=== PATIENT | male | born 1940 | race Caucasian/White ===

== ENCOUNTER → 2020-05-13 08:54 | Outpatient (BNVA) | payer MEDICARE, SELFPAY | PROVIDERS: PCP Internal Medicine; Referring Provider Internal Medicine; Visit Provider Physician Assistant | DX: K58.9 Irritable bowel syndrome, unspecified (principal); Z79.899 Other long term (current) drug therapy | CPT/HCPCS: 99212 ==

== ENCOUNTER → 2020-06-17 10:23 | Outpatient (BNVA) | payer MEDICARE, SELFPAY | PROVIDERS: PCP Internal Medicine; Referring Provider Internal Medicine; Visit Provider Internal Medicine | DX: G47.33 Obstructive sleep apnea (adult) (pediatric) (principal); K58.9 Irritable bowel syndrome, unspecified; Z99.89 Dependence on other enabling machines and devices | CPT/HCPCS: 99212 ==

== ENCOUNTER 2020-08-20 08:28 | Outpatient (REF) | payer MEDICARE, SELFPAY ==
--- NOTE | 2020-08-20 13:33 | MHC.AU.P13 ---
Adult Audiological Evaluation Date of Visit: 08/20/20 Reason for Appointment: Audiological evaluation to monitor the status of Mr. Ocasio's hearing loss. He notes that he's been having increased difficulty hearing and understanding the television. 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 Ear History: History of Ear Wax Buildup: Both Ears Medical History: Medical History: Unremarkable Medical History Hearing Instrument History- Right Ear: Coal Miner: Phonak Model: Virto B50-13 Serial Number: [id number] Battery Size: 13 Repair Warranty: 09/13/2022 Loss and Damage Warranty: 09/13/2022 Dispensed By: [facility] Date of Fittin08/22/2019 Hearing Instrument History- Left Ear: Coal Miner: Phonak Model: Virto B50-13 Serial Number: [id number] Battery Size: 312 Warranty: 09/13/2022 Loss and Damage Warranty: 09/13/2022 Dispensed By: [facility] Date of Fittin08/22/2019 Otoscopy: Right Ear: Unremarkable Left Ear: Unremarkable Tympanometry: Tympanometry performed due to: History of middle ear dysfunction Right Ear: Hypercompliant Middle Ear System (Type Ad) Left Ear: Hypercompliant Middle Ear System (Type Ad) Hearing Evaluation: Transducer(s) Used: Insert Earphones, Bone Conduction Method: Conventional Audiometry Stimuli Used: Pure Tones Right Ear: Description of Hearing: Mild sloping to profound sensorineural hearing loss from 250-8000 Hz. Left Ear: Description of Hearing: Normal hearing at 250 Hz, sloping to a mild to profound sensorineural hearing loss from 500-8000 Hz. Speech Recognition Threshold (SRT): Method Used: Monitored Live Voice Stimuli Used: Spondee Words Right Ear: 35 dBHL Left Ear: 35 dBHL Word Discrimination: Method: Recorded Lists Word Lists Used: NU-6 Right Ear: 56% at 75 dBHL, 72% at 85 dBHL Left Ear: 68% at 85 dBHL Comparison: Compared to the most recent evaluation: Hearing is stable. Recommendations: Audiological re-evaluation in one year. Hearing aid maintenance performed today. Hearing aid(s) reprogrammed with updated test results. Diagnosis: Primary Diagnosis: H90.3 Bilateral Sensorineural Hearing Loss Services Performed: Comprehensive Audiological Evaluation (CPT 36673) Tympanometry (CPT 56616) Signature: Provider: Mundo Vides, CCC-A
== END 2020-08-20 08:29 | disposition home or self-care (01) ==
LOC: HO.SH 08:28
PROVIDERS: Visit Provider Internal Medicine
DX: H90.3 Sensorineural hearing loss, bilateral (principal)
CPT/HCPCS: 92557; 92567

== ENCOUNTER 2020-09-02 09:55 | Outpatient (REF) | payer MEDICARE, SELFPAY ==
[2020-09-02 11:29] LABS: Cholesterol 154 mg/dL; HDL Cholesterol 60 mg/dL; LDL Cholesterol Calculated 84 mg/dl; Triglycerides 52 mg/dL
== END 2020-09-02 09:56 | disposition home or self-care (01) ==
LOC: HO.LAB 09:55
PROVIDERS: PCP Internal Medicine; Visit Provider Internal Medicine
DX: E11.9 Type 2 diabetes mellitus without complications (principal)
CPT/HCPCS: 36415; 80061

== ENCOUNTER → 2020-12-16 10:25 | Outpatient (BNVA) | payer MEDICARE, SELFPAY | PROVIDERS: PCP Internal Medicine; Visit Provider Internal Medicine | DX: G47.33 Obstructive sleep apnea (adult) (pediatric) (principal); K58.9 Irritable bowel syndrome, unspecified; Z99.89 Dependence on other enabling machines and devices | CPT/HCPCS: 99212 ==

== ENCOUNTER 2021-01-15 11:20 | Outpatient (REF) | payer SELFPAY | END 2021-01-15 11:21 | disposition home or self-care (01) | LOC: HO.HAP 11:20 | PROVIDERS: Visit Provider Internal Medicine | DX: Z13.89 Encounter for screening for other disorder (principal) ==

== ENCOUNTER 2021-01-24 11:00 | Outpatient (REF) | payer SELFPAY | END 2021-01-24 11:01 | disposition home or self-care (01) | LOC: HO.HAP 11:00 | PROVIDERS: Visit Provider Internal Medicine | DX: H90.3 Sensorineural hearing loss, bilateral (principal) | CPT/HCPCS: V5266 ==

== ENCOUNTER 2021-02-20 15:31 | Outpatient (REF) | payer SELFPAY | END 2021-02-20 15:32 | disposition home or self-care (01) | LOC: HO.HAP 15:31 | PROVIDERS: Visit Provider Internal Medicine | DX: Z13.89 Encounter for screening for other disorder (principal) ==

== ENCOUNTER 2021-02-21 07:36 | Outpatient (REF) | payer MEDICARE, SELFPAY ==
[2021-02-21 09:04] LABS: Alanine Aminotransferase 16 U/L (0-40); Albumin Level 4.4 g/dL (3.5-5.0); Alkaline Phosphatase 52 U/L (39-117); Anion Gap 13 (12-20); Aspartate Amino Transferase 22 U/L (5-37); Bilirubin Total 0.8 mg/dL (0.0-1.0); Blood Urea Nitrogen 19 mg/dL (9-16); Calcium 9.4 mg/dL (8.4-10.2); Carbon Dioxide 26 mmol/L (22-29); Chloride 106 mmol/L (96-108); Estimated Glomerular Filt Rate > 60; Glucose Fasting 90 mg/dL (60-99); Potassium 4.3 mmol/L (3.3-5.1); Sodium 141 mmol/L (135-145)
== END 2021-02-21 07:37 | disposition home or self-care (01) ==
LOC: HO.LAB 07:36
PROVIDERS: PCP Internal Medicine; Referring Provider Internal Medicine; Visit Provider Nurse Practitioner Family
DX: Z13.1 Encounter for screening for diabetes mellitus (principal)
CPT/HCPCS: 36415; 80053

== ENCOUNTER 2021-03-11 10:57 | Outpatient (REF) | payer SELFPAY | END 2021-03-11 10:58 | disposition home or self-care (01) | LOC: HO.HAP 10:57 | PROVIDERS: Visit Provider Internal Medicine | DX: Z46.1 Encounter for fitting and adjustment of hearing aid (principal); H90.3 Sensorineural hearing loss, bilateral | CPT/HCPCS: V5299 ==

== ENCOUNTER 2021-03-23 11:50 | Emergency (ER) | payer MEDICARE, SELFPAY ==
[2021-03-23 11:59] VITALS: BP 149/74; PULSE 88; RESP 17; TEMP 36.7; O2SAT 99; BMI 22.1
--- NOTE | 2021-03-23 12:37 | ED.GENADULT ---
HPI - General Adult General Chief complaint: General Medical Stated complaint: toe nail injury Time Seen by Provider: 03/23/21 12:37 Source: patient Mode of arrival: ambulatory Limitations: no limitations History of Present Illness HPI narrative: 80 y/o male presents for evaluation of a left great toe nail injury. He reports 6 months of topical treatment for fungus to the nails. He is seen by Podiatry. Last night when cleaning his feet the nail got caught on the fabic and he tore it away from the nailbed partially. He had bleeding at the time that was able to be controlled with direct pressure and bandage. No pain this morning. Ambulating normally. encouraged him to come to the ER for evaluation. MD complaint: left great toe nail injury Onset (ago): day(s) (1) Location: left and lower extremity Radiation: non-radiation Severity: mild Severity scale (1-10): 1 Pain Consistency: now resolved Relieving factors: none Exacerbating factors: none Associated symptoms: denies other symptoms Treatments prior to arrival: none Related Data Previous Rx's Medication Instructions Recorded simvastatin 20 mg tablet 20 mg PO DAILY #90 tab 07/15/20 cephalexin 500 mg capsule 500 mg PO BID #6 cap 03/23/21 Allergies Allergy/AdvReac Type Severity Reaction Status Date / Time No Known Allergies Allergy Verified 03/23/21 11:59 [No Known Allergies*] Review of Systems Constitutional: Constitutional: Denies chills and Denies fever(s) Eyes: Eyes: Reports no additional eye complaints ENT: Reports Normal hearing present Gastrointestinal: Gastrointestinal: Denies nausea and Denies vomiting Musculoskeletal: Musculoskeletal: Denies abnormal gait, Denies arthralgias, Denies limited range of motion, Denies numbness and Denies tingling Integumentary/Breasts: Skin/Breast: Denies unusual bruising Neurologic: Reports Normal hearing present, Denies abnormal gait, Denies numbness and Denies tingling Hematologic/Lymphatic: Hematologic/Lymphatic: Denies easy bleeding and Denies easy bruising PMFSH Past Medical History Attestation statement: The following information was validated with the patient. Medical History Dyslipidemia Hyperlipidemia IBS (irritable bowel syndrome) RIZWAN on CPAP Screening for diabetes mellitus Surgical History (Updated 02/18/21 @ 09:49 by EARLE Irene) History of colonoscopy Family History Family History Father Mental health disorder Mother No problems noted. Social History Social History (Updated 02/18/21 @ 09:21 by EARLE Irene) Alcohol intake: current Patient Tobacco Use Status: Former Tobacco user Advance Directives: No Advance Directives Information Provided: No Physical Exam Vital Signs: Vital Signs: Last Vital Signs Temp 98.0 F 03/23/21 11:59 Pulse 88 03/23/21 11:59 Resp 17 03/23/21 11:59 BP 149/74 H 03/23/21 11:59 Pulse Ox 99 03/23/21 11:59 Body Mass Index 22.1 Appearance: Alert. Oriented X3. No acute distress. HEENT: normal inspection CVS: Normal heart rate and rhythm. Pulses normal. Respiratory: No respiratory distress. Skin: Skin warm and dry. Normal skin color. Normal skin turgor. No rashes. Extremities: left great toe with thickened yellow toenail. nail is able to be from the nail bed about 1/3 of the length of the nail. no active bleeding. dried blood present and cleaned off. no joint pain, erythema or warmth. great toe nail is split almost all the way to the cuticle. Neuro: Oriented X 3. Nonfocal Steady gait Neuro: Cranial nerves: Yes Normal hearing present Course Course Course Narrative: 80 y/o male presenting with partial avulsion of left great toenail. No bleeding or active bacterial infection. Toe nail is still brittle and appears to be fungal. He has an appointment with podiatry in 1 week. Will start PPX keflex given new trauma. Bacitracin and sterile dressing applied. Stable for d/c home with outpatient follow up. Discharge Plan Discharge Clinical Impression: Toenail fungus, Injury of nail bed of toe Patient Disposition: Home, Self-Care Instructions: Nail Avulsion (ED) Additional Instructions: Take the prescribed antibiotic as directed to help prevent infection Follow up with your Merchandising Team Lead next week Prescriptions: New cephalexin 500 mg capsule 500 mg PO BID Qty: 6 RF: 0 No Action simvastatin 20 mg tablet 20 mg PO DAILY Qty: 90 RF: 8 Interventions: ED Discharge Assessment Last Done: 03/23/21 12:41 Discharge Date/Time: 03/23/21 12:43
== END 2021-03-23 12:43 | disposition home or self-care (01) ==
PROVIDERS: Emergency Provider Emergency Medicine; PCP Internal Medicine
DX: B35.1 Tinea unguium (principal); M79.672 Pain in left foot; Z79.899 Other long term (current) drug therapy
CPT/HCPCS: 99283

== ENCOUNTER 2021-05-26 12:28 | Outpatient (REF) | payer SELFPAY | END 2021-05-26 12:29 | disposition home or self-care (01) | LOC: HO.HAP 12:28 | PROVIDERS: Visit Provider Internal Medicine | DX: Z13.89 Encounter for screening for other disorder (principal) ==

== ENCOUNTER 2021-06-04 13:31 | Outpatient (REF) | payer SELFPAY | END 2021-06-04 13:32 | disposition home or self-care (01) | LOC: HO.HAP 13:31 | PROVIDERS: Visit Provider Internal Medicine | DX: Z13.89 Encounter for screening for other disorder (principal) ==

== ENCOUNTER → 2021-06-17 10:24 | Outpatient (BNVA) | payer MEDICARE, SELFPAY | PROVIDERS: PCP Internal Medicine; Visit Provider Internal Medicine | DX: G47.33 Obstructive sleep apnea (adult) (pediatric) (principal); Z99.89 Dependence on other enabling machines and devices | CPT/HCPCS: 99212 ==

== ENCOUNTER 2021-09-03 07:41 | Outpatient (REF) | payer MEDICARE, SELFPAY ==
[2021-09-03 08:04] LABS: MANUAL DIFF FLAG NO
[2021-09-03 08:32] LABS: Basophils Percent Auto 0.8 % (0-2); Eosinophils Absolute Auto 0.2 X10*3/uL (0.0-0.4); Eosinophils Percent Auto 5.5 % (0-4); Hematocrit 42.2 % (42.0-52.0); Hemoglobin 14.2 g/dl (14.0-18.0); Imm Gran Abs Auto 0.01 X10*3/uL (0.00-0.03); Imm Gran Pct Auto 0.3 % (0.0-0.4); Lymphocytes Absolute Auto 1.5 X10*3/uL (1.2-4.9); Lymphocytes Percent Auto 39.6 % (20-40); Mean Corpuscular HGB Conc 33.6 g/dl (31.0-36.0); Mean Corpuscular Hemoglobin 33.3 pg (27.0-33.0); Mean Corpuscular Volume 98.8 fL (80.0-98.0); Mean Platelet Volume 8.9 fL (9.4-12.4); Monocytes Absolute Auto 0.4 X10*3/uL (0.1-1.2); Neutrophils Absolute Auto 1.7 x10*3/uL (2.0-8.3); Neutrophils Percent Auto 43.8 % (45-73); Platelet Count 163 X10*3/uL (160-400); Red Blood Count 4.27 X10*6/uL (4.60-5.80); Red Cell Distribution Width 12.7 % (11.0-16.0); White Blood Count 3.8 X10*3/uL (4.8-10.8)
[2021-09-03 09:06] LABS: Alanine Aminotransferase 15 U/L (0-40); Albumin Level 4.3 g/dL (3.5-5.0); Alkaline Phosphatase 47 U/L (39-117); Anion Gap 13 (12-20); Aspartate Amino Transferase 22 U/L (5-37); Bilirubin Total 0.6 mg/dL (0.0-1.0); Blood Urea Nitrogen 21 mg/dL (9-16); Calcium 9.8 mg/dL (8.4-10.2); Carbon Dioxide 27 mmol/L (22-29); Chloride 105 mmol/L (96-108); Cholesterol 165 mg/dL; Estimated Glomerular Filt Rate > 60; Glucose Fasting 93 mg/dL (60-99); HDL Cholesterol 54 mg/dL; LDL Cholesterol Calculated 101 mg/dl; Potassium 4.3 mmol/L (3.3-5.1); Sodium 141 mmol/L (135-145); Total Protein 7.1 g/dL (6.5-8.0); Triglycerides 54 mg/dL
[2021-09-03 09:37] LABS: Prostate Specific Antigen Scr 9.85 ng/mL (<0.05-4.0); Thyroid Stimulating Hormone 2.36 uIU/mL (0.32-4.0)
== END 2021-09-03 07:42 | disposition home or self-care (01) ==
LOC: HO.LAB 07:41
PROVIDERS: PCP Internal Medicine; Visit Provider Internal Medicine
DX: Z00.00 Encounter for general adult medical examination without abnormal findings (principal); Z13.0 Encounter for screening for diseases of the blood and blood-forming organs and certain disorders involving the immune mechanism; Z12.5 Encounter for screening for malignant neoplasm of prostate
CPT/HCPCS: 36415; 80053; 80061; 84153; 84443; 85025

== ENCOUNTER 2021-09-08 08:34 | Outpatient (REF) | payer MEDICARE, SELFPAY ==
--- NOTE | 2021-09-08 10:25 | MHC.AU.AHA ---
Adult Audiological Evaluation Date of Visit: 09/08/21 Reason for Appointment: Audiological evaluation to monitor the status of Mr. Ocasio's hearing loss. Mr. Ocasio has a longstanding history of bilateral sensorineural hearing loss and uses hearing aids binaurally. He denies any significant changes to his hearing, but notes that he thinks he has a cerumen build-up. He denies any changes to his medical history. 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 Ear History: History of Ear Wax Buildup: Both Ears Medical History: Medical History: Unremarkable Medical History Allergies: NKA Medication List: Simvastatin Hearing Instrument History- Right Ear: Military Administrative Technician: Leevia Model: [id number] Media B50-13 Serial Number: [id number] Battery Size: 13 Repair Warranty: 09/13/2022 Loss and Damage Warranty: 09/13/2022 - USED 02/24/2021 Dispensed By: [facility] Date of Fittin08/22/2019 Hearing Instrument History- Left Ear: Military Administrative Technician: Phonak Model: GetPriceo B50-13 Serial Number: [id number] Battery Size: 312 Warranty: 09/13/2022 Loss and Damage Warranty: 09/13/2022 Dispensed By: [facility] Date of Fittin08/22/2019 Otoscopy: Right Ear: Partially occluded with cerumen Left Ear: Partially occluded with cerumen Tympanometry: Tympanometry performed due to: To assess integrity of the middle ear system Right Ear: Could Not Obtain Seal Left Ear: Hypercompliant Middle Ear System (Type Ad) Hearing Evaluation: Transducer(s) Used: Circumaural Headphones, Bone Conduction Method: Conventional Audiometry Stimuli Used: Pure Tones Right Ear: Description of Hearing: Normal hearing from 250-500 Hz, sloping to a mild to profound sensorineural hearing loss from 750-8000 Hz. Left Ear: Description of Hearing: Normal hearing from 250-500 Hz, sloping to a mild to profound sensorineural hearing loss from 750-8000 Hz. Speech Recognition Threshold (SRT): Method Used: Monitored Live Voice Stimuli Used: Spondee Words Right Ear: 30 dBHL Left Ear: 30 dBHL Word Discrimination: Method: Recorded Lists Word Lists Used: NU-6 Right Ear: 36% at 90 dBHL Left Ear: 44% at 90 dBHL Most Comfortable Level (MCL): Right Ear: 85 dBHL Left Ear: 85 dBHL Comparison: Compared to the most recent evaluation: Hearing is stable. Monaural word discrimination scores decreased significantly from scores of 72% at 85 dBHL in the right ear and 68% at 85 dBHL in the left ear in 202. Recommendations: Audiological re-evaluation in one year. Follow-up with physician for cerumen removal. Hearing aid maintenance performed today. Diagnosis: Primary Diagnosis: H90.3 Bilateral Sensorineural Hearing Loss Secondary Diagnosis: H61.23 Impacted Cerumen, Bilateral Services Performed: Comprehensive Audiological Evaluation (CPT 98979) Tympanometry (CPT 84477) Signature: Provider: Mundo Vides, CCC-A
== END 2021-09-08 08:35 | disposition home or self-care (01) ==
LOC: HO.SH 08:34
PROVIDERS: Visit Provider Internal Medicine
DX: H90.3 Sensorineural hearing loss, bilateral (principal); H61.23 Impacted cerumen, bilateral
CPT/HCPCS: 92557; 92567

== ENCOUNTER → 2021-12-16 10:10 | Outpatient (BNVA) | payer MEDICARE, SELFPAY | PROVIDERS: PCP Internal Medicine; Visit Provider Internal Medicine | DX: G47.33 Obstructive sleep apnea (adult) (pediatric) (principal); Z99.89 Dependence on other enabling machines and devices | CPT/HCPCS: 99212 ==

== ENCOUNTER 2022-02-18 11:09 | Outpatient (REF) | payer SELFPAY | END 2022-02-18 11:10 | disposition home or self-care (01) | LOC: HO.HAP 11:09 | PROVIDERS: Visit Provider Internal Medicine | DX: Z46.1 Encounter for fitting and adjustment of hearing aid (principal); H90.3 Sensorineural hearing loss, bilateral | CPT/HCPCS: V5266 ==

== ENCOUNTER 2022-03-30 11:48 | Outpatient (REF) | payer SELFPAY ==
--- NOTE | 2022-04-01 09:56 | MHC.AU.HFU ---
Hearing Instrument Follow-Up- Binaural Date of Visit: 03/30/22 Right Ear: Wire Spooler: Phonak Model: Virto B50-13 Serial Number: [id number] Repair Warranty: 09/13/2022 Loss and Damage Warranty: 09/13/2022 - USED 02/24/2021 Battery Size: 13 Left Ear: Wire Spooler: Phonak Model: Virto B50-13 Serial Number: [id number] Repair Warranty: 09/13/2022 Loss and Damage Warranty: 09/13/2022 Battery Size: 13 Follow-Up Summary: Patient dropped his hearing aids off, stating the battery life is very short. I had previously discussed this on the phone with the patient, suggesting he first made sure there was no adhesive residue on the batteries, which we have noticed has been happening with many people. He also put his batteries in the envelope so we could check if they are okay. Hearing aids inspected. No visible damage. Two batteries were activated, and do not have any adhesive residue. The hearing aids were sent to [facility] for repair under warranty. Recommendations: Patient will be contacted when materials have arrived. The packet containing the patient's batteries will be held in the repair drawer. Diagnosis Code(s): Primary Diagnosis: H90.3 Bilateral Sensorineural Hearing Loss Signature: Provider: Mundo Bush, RAZIA-A
== END 2022-03-30 11:49 | disposition home or self-care (01) ==
LOC: HO.HAP 11:48
PROVIDERS: Visit Provider Internal Medicine
DX: Z13.89 Encounter for screening for other disorder (principal)

== ENCOUNTER 2022-04-09 16:33 | Outpatient (REF) | payer MEDICARE, SELFPAY | END 2022-04-09 16:34 | disposition home or self-care (01) | LOC: HO.HAP 16:33 | PROVIDERS: Visit Provider Internal Medicine | DX: Z13.89 Encounter for screening for other disorder (principal) ==

== ENCOUNTER → 2022-06-11 09:07 | Outpatient (BNVA) | payer MEDICARE, SELFPAY | PROVIDERS: PCP Internal Medicine; Visit Provider Urology | DX: R97.20 Elevated prostate specific antigen [PSA] (principal) | CPT/HCPCS: 99202 ==

== ENCOUNTER 2022-06-23 13:05 | Outpatient (REF) | payer SELFPAY | END 2022-06-23 13:06 | disposition home or self-care (01) | LOC: HO.HAP 13:05 | PROVIDERS: Visit Provider Internal Medicine | DX: Z46.1 Encounter for fitting and adjustment of hearing aid (principal); H90.3 Sensorineural hearing loss, bilateral | CPT/HCPCS: V5266 ==

== ENCOUNTER 2022-09-21 12:50 | Outpatient (REF) | payer MEDICARE, SELFPAY ==
--- NOTE | 2022-09-22 09:27 | MHC.AU.HA3 ---
Hearing Instrument Follow-Up- Binaural Date of Visit: 09/21/22 Right Ear: Louis, Model, Color, Serial Number: Loree Salmon [id number] SN: [id number] Color: [place] Lip Reading Teacher Repair Warranty: 09/13/2022 Lip Reading Teacher Loss and Damage Warranty: 09/13/2022 - USED 02/24/2021 [facility] Service Plan: 09/13/2022 Battery Size: 13 Type of Wax Guard: Cerustop Dispensed By: [facility] Date of Fittin08/22/2019 Left Ear: Louis, Model, Color, Serial Number: Loree Salmon B50-13 SN: [id number] Color: [place] Lip Reading Teacher Repair Warranty: 09/13/2022 Lip Reading Teacher Loss and Damage Warranty: 09/13/2022 [facility] Service Plan: 09/13/2022 Battery Size: 13 Type of Wax Guard: Cerustop Dispensed By: [facility] Date of Fittin08/22/2019 Follow-Up Summary: Olvin reported that he wanted to send the hearing aids out for a reproduction specialist repair/clean and check before the warranty expires. Warranty 09/13/2022. Called [facility] to inquire about a courtesy repair - surgical sales representative, Sheyla, reported warranty does not until 11/12/2022 for both hearing aids. Olvin reported that he does not need loaners as he will use his old hearing aid in the meantime. Sent both hearing aids to [facility]. Recommendations: Patient will be contacted when materials have arrived. Recommendations (Other): Once hearing aids return and are reprogrammed, Olvin can fruit picker the devices without an appointment. Diagnosis Code(s): Primary Diagnosis: H90.3 Bilateral Sensorineural Hearing Loss Signature: Provider: Ty Irwin, [facility]
== END 2022-09-21 12:51 | disposition home or self-care (01) ==
LOC: HO.HAP 12:50
PROVIDERS: Visit Provider Internal Medicine
DX: Z13.89 Encounter for screening for other disorder (principal)

== ENCOUNTER 2022-09-28 11:00 | Outpatient (REF) | payer MEDICARE, SELFPAY ==
[2022-09-28 13:00] LABS: Cholesterol 176 mg/dL; HDL Cholesterol 53 mg/dL; LDL Cholesterol Calculated 112 mg/dl; Triglycerides 59 mg/dL
[2022-09-28 13:28] LABS: PSA,Total (Free>4and<10) 4.99 ng/mL (0.00-4.00)
[2022-10-01 11:54] LABS: Free Prostate Spec Ag 0.6 ng/mL; Percent Free Prostate Spec Ag 12 % (calc) (>25)
== END 2022-09-28 11:01 | disposition home or self-care (01) ==
LOC: HO.LAB 11:00
PROVIDERS: PCP Internal Medicine; Visit Provider Urology
DX: Z12.5 Encounter for screening for malignant neoplasm of prostate (principal); R97.20 Elevated prostate specific antigen [PSA]; E78.5 Hyperlipidemia, unspecified
CPT/HCPCS: 36415; 80061; 84153; 84154

== ENCOUNTER 2022-09-30 06:52 | Outpatient (REF) | payer MEDICARE, SELFPAY ==
[2022-09-30 08:18] LABS: Cholesterol 177 mg/dL; HDL Cholesterol 55 mg/dL; LDL Cholesterol Calculated 111 mg/dl; Triglycerides 58 mg/dL
[2022-09-30 08:36] LABS: Prostate Specific Antigen Scr 5.05 ng/mL (<0.05-4.0)
== END 2022-09-30 06:53 | disposition home or self-care (01) ==
LOC: HO.LAB 06:52
PROVIDERS: PCP Internal Medicine; Visit Provider Internal Medicine
DX: Z00.00 Encounter for general adult medical examination without abnormal findings (principal); Z12.5 Encounter for screening for malignant neoplasm of prostate; E78.5 Hyperlipidemia, unspecified
CPT/HCPCS: 36415; 80061; 84153

== ENCOUNTER 2022-10-02 13:59 | Outpatient (REF) | payer SELFPAY | END 2022-10-02 14:00 | disposition home or self-care (01) | LOC: HO.HAP 13:59 | PROVIDERS: Visit Provider Internal Medicine | DX: Z13.89 Encounter for screening for other disorder (principal) ==

== ENCOUNTER → 2022-10-06 09:14 | Outpatient (BNVA) | payer MEDICARE, SELFPAY | PROVIDERS: PCP Internal Medicine; Visit Provider Urology | DX: R97.20 Elevated prostate specific antigen [PSA] (principal); R35.1 Nocturia; R39.12 Poor urinary stream | CPT/HCPCS: 99212 ==

== ENCOUNTER 2022-11-23 11:13 | Outpatient (REF) | payer MEDICARE, SELFPAY | END 2022-11-23 11:14 | disposition home or self-care (01) | LOC: HO.SH 11:13 | PROVIDERS: Visit Provider Internal Medicine | DX: H90.3 Sensorineural hearing loss, bilateral (principal) | CPT/HCPCS: 92552; 92556 ==

== ENCOUNTER 2023-02-18 09:21 | Outpatient (AMB) | payer MEDICARE, SELFPAY ==
[2023-02-18 09:29] VITALS: BP 118/78; PULSE 80; O2SAT 98; BMI 22.1
--- NOTE | 2023-02-18 09:29 | MHC.PC.OV ---
Vital Signs 02/18/23 09:29 Height 6 ft Weight 163 lb 4 oz BMI 22.1 BP 118/78 Blood Pressure Location Lt brachial Position Sitting Pulse 80 Pulse Source Pulse Oximeter Pulse Oximetry (%) 98 Oxygen Delivery Method Room Air Intake Visit Reasons: 6mth f/u Slitting Machine Operator Helper Required: No Accompanied by: Self / Same As Patient Allergies No Known Allergies [No Known Allergies*] Allergy (Verified 02/18/23 09:30) Medication List - Last Reconciled 02/18/23 by Clifford Ortega MD finasteride 5 mg PO DAILY 90 days metronidazole 0.75% appl topical BID PRN simvastatin 20 mg PO DAILY Tobacco use date assessed: 02/18/23 Fall risk assessment: No Falls in past year Last assessed Fall Risk: 02/18/23 Dental Screening Dental Screen Date: 02/18/23 Did you have a dental visit in the last 12 months?: Yes Did you have a dental problem in the last 6 months where you did not have access to dental care?: No Was dental information given to patient?: Patient has dentist HPI 6mth f/u HPI Details hyperlipidemia on rx; [facility] Medical History (Updated 10/06/22 @ 10:02 by Domo Perkins MD) Dyslipidemia History of urinary frequency Hyperlipidemia IBS (irritable bowel syndrome) RIZWAN on CPAP Screening for diabetes mellitus Surgical History History of colonoscopy Family History Father Mental health disorder Mother No problems noted. Social History Housing: House Alcohol intake: current Patient Tobacco Use Status: Former Tobacco user Tobacco use type: Cigarette Years Smoked: 2 years. Over 60 years ago. e-Cigarette/Vaping Use: Never Used Second Hand Smoke Exposure: No service: No Current occupational status: retired Cognitive needs: No Hearing needs: No Vision needs: No Questionnaire PHQ-9 Over the last 2 weeks, how often have you been bothered by any of the following problems? 1. Little interest or pleasure in doing things: not at all 2. Feeling down, depressed, or hopeless: not at all 3. Trouble falling or staying asleep, or sleeping too much: not at all 4. Feeling tired or having little energy: not at all 5. Poor appetite or overeating: not at all 6. Feeling bad about yourself - or that you are a failure or have let yourself or your family down: not at all 7. Trouble concentrating on things, such as reading the newspaper or watching television: not at all 8. Moving or speaking so slowly that other people could have noticed. Or the opposite - being so fidgety or restless that you have been moving around a lot more than usual: not at all 9. Thoughts that you would be better off or of hurting yourself in some way: not at all Total score: 0 Depression Screening Interpretation: Negative 63464 - PHQ-9 Billing: Yes Source: Developed by Drs. Geronimo Garcia, Cortney Mathis, Santana Jaime and colleagues, with an educational germain from [employer]. Thrive Questionnaire Date Thrive assessed: 02/18/23 I am a: Patient What is your living situation today?: I have a steady place to live Within the past 12 months, did the food you bought not last and you didn't have the money to get more?: Never true Within the past 12 months, did you worry whether your food would run out before you got money to buy more?: Never true Do you have trouble paying for medicines?: No Do you have trouble getting transportation to medical appointments?: No Do you have trouble paying your heating and electricity bill?: No Do you have trouble taking care of your child, family member or friend?: No Do you have trouble with day-to-day activities such as bathing, preparing meals, shopping, managing finances, etc.?: No Are you currently unemployed and looking for a job?: No Are you interested in more education?: No Please select the resources that you would like help with: None Currently or been in a relationship where the following occur: no concerns reported AUDIT C Alcohol Use Questionnaire (AUDIT-C) Score Reviewed/Action Taken: Yes GUERRERO-7 AMB Questionnaire GUERRERO-7 Date GUERRERO - 7 assessed: 02/18/23 Feeling nervous, anxious, or on edge: 0 = Not at all Not being able to stop or control worryin = Not at all Worrying too much about different things: 0 = Not at all Trouble relaxin = Not at all Being so restless that it is hard to sit still: 0 = Not at all Becoming easily annoyed or irritable: 0 = Not at all Feeling afraid as if something awful might happen: 0 = Not at all Total GUERRERO-7 score (0-4 normal; 5-9 mild; 10-14 moderate; 15-21 severe): 0 Source: Developed by Drs. Geronimo Garcia, Cortney Mathis, Santana Jaime and colleagues, with an educational germain from [employer]. GUERRERO-7 Assessment Billing GUERRERO-7 Assessment Tool: GUERRERO-7 Assessment 74395 Review of Systems Const Denies chills, Denies headache(s) and Denies weight loss ENT Denies headache(s) Card Denies chest pain, Denies syncope, Denies irregular heart rhythm and Denies dyspnea Resp Denies chest congestion, Denies cough and Denies dyspnea GI Denies abdominal pain, Denies change in stool character, Denies nausea and Denies vomiting Musc Denies deformity and Denies joint swelling Neuro Denies syncope and Denies headache(s) Physical exam (Primary Care) Vital Signs: Last Vital Signs Pulse 80 02/18/23 09:29 BP 118/78 02/18/23 09:29 Pulse Ox 98 02/18/23 09:29 Oxygen Delivery Method Room Air 02/18/23 09:29 BMI result Body Mass Index 22.1 Tobacco/Smoking Status: Tobacco use Status Tobacco use date assessed 02/18/23 02/18/23 09:33 Patient Tobacco Use Status Former Tobacco user 02/18/23 09:33 Tobacco use type Cigarette 02/18/23 09:33 e-Cigarette/Vaping Use Never Used 02/18/23 09:33 PHQ-9: PHQ-9 Score PHQ-9: Total score 0 02/18/23 09:33 Depression Screening Interpretation: Negative Thrive Assessment: Date of Thrive Assessment Date Thrive assessed 02/18/23 02/18/23 09:33 Currently or been in a relationship where the following occur: no concerns reported Const General: cooperative, comfortable and no acute distress Resp Effort & Inspection: normal respiratory effort Auscultation: clear to auscultation bilaterally Percussion: percussion normal Cardio Jugular venous distension: no JVD Rate: regular rate Rhythm: regular rhythm GI Inspection: Yes normal to inspection Assessment and Plan Assessment & Plan (1) Dyslipidemia: Code(s): E78.5 - Hyperlipidemia, unspecified Plan: stable; same rx Orders: Referrals General Surgery Referral K40.90 - Unilateral inguinal hernia, without obstruction or gangrene, not specified as recurrent Coding Level of Care Code Est Pt Level 3 (55700) Diagnoses Dyslipidemia E78.5 Additional Codes GUERRERO-7 Assessment Billing - GUERRERO-7 Assessment Tool: GUERRERO-7 Assessment 55638 ([id number])
== END 2023-02-18 09:55 | disposition home or self-care (01) ==
PROVIDERS: Visit Provider Internal Medicine
DX: E78.5 Hyperlipidemia, unspecified (principal)
CPT/HCPCS: 99213

== ENCOUNTER 2023-03-02 09:32 | Outpatient (AMB) | payer MEDICARE, SELFPAY ==
--- NOTE | 2023-03-02 09:38 | MHC.OFFVIS ---
Intake Vital Signs 03/02/23 09:39 Height 6 ft Weight 165 lb BMI 22.4 BP 161/79 H Blood Pressure Location Lt brachial Position Sitting Pulse 61 Intake Visit Reasons: unilateral inguinal hernia Intake Note: This patient presents for an assessment for a possible left inguinal hernia. Patient c/o; Reports first noticing this lump about two years ago and he had mentioned this to his PCP in his recent visit again, which referred him to general surgery for an evaluation. Reports bulge and minimal pain, left groin. Synthetic Gem Press Operator Required: No Accompanied by: Self / Same As Patient Allergies No Known Allergies [No Known Allergies*] Allergy (Verified 03/02/23 09:40) HPI HPI Comments History of Present Illness Details Patient presents for evaluation of a left inguinal hernia. He has had this approximately 2 years time. His increasing size, become more symptomatic. He wished to have it evaluated. Patient has no other GI issues or complaints. He has time diet. Having normal bowel habits. He is relatively active. Does occasional heavy lifting. Chart was reviewed patient evaluated [facility] Medical History (Updated 10/06/22 @ 10:02 by Domo Perkins MD) Dyslipidemia History of urinary frequency Hyperlipidemia IBS (irritable bowel syndrome) RIZWAN on CPAP Screening for diabetes mellitus Surgical History History of colonoscopy Family History Father Mental health disorder Mother No problems noted. Social History Housing: House Alcohol intake: current Patient Tobacco Use Status: Former Tobacco user Tobacco use type: Cigarette Years Smoked: 2 years. Over 60 years ago. e-Cigarette/Vaping Use: Never Used Second Hand Smoke Exposure: No service: No Current occupational status: retired Cognitive needs: No Hearing needs: No Vision needs: No Physical Exam Vital Signs: Last Vital Signs Pulse 61 03/02/23 09:39 BP 161/79 H 03/02/23 09:39 BMI result Body Mass Index 22.4 Chest Other: Chest breath sounds bilaterally, HS 1 in 2 GI Other: Patient was examined both supine and standing with Valsalva Abdomen soft. Benign. Right groin negative. Very large left inguinal hernia. Genitalia within normal limits. Assessment & Plan Assessment & Plan (1) Inguinal hernia: Code(s): K40.90 - Unilateral inguinal hernia, without obstruction or gangrene, not specified as recurrent Plan Risks, benefits, alternatives of open left inguinal hernia repair with mesh reviewed with the patient and included but not limited to bleeding, infection, recurrence, numbness, pain, scarring the patient was to proceed. All questions were answered. Arrangements will be made for this on a day which is convenient for him. Coding Level of Care Code New Pt Level 5 (11619) Diagnoses Inguinal hernia K40.90
[2023-03-02 09:39] VITALS: BP 161/79; PULSE 61; BMI 22.4
== END 2023-03-02 10:02 | disposition home or self-care (01) ==
PROVIDERS: PCP Internal Medicine; Visit Provider Surgery
DX: K40.90 Unilateral inguinal hernia, without obstruction or gangrene, not specified as recurrent (principal)
CPT/HCPCS: 99204

== ENCOUNTER → 2023-03-02 09:32 | Outpatient (BNVA) | payer MEDICARE, SELFPAY | PROVIDERS: PCP Internal Medicine; Visit Provider Surgery | DX: K40.90 Unilateral inguinal hernia, without obstruction or gangrene, not specified as recurrent (principal) | CPT/HCPCS: 99202 ==

== ENCOUNTER 2023-03-26 11:21 | Day surgery (SDC) | payer MEDICARE, SELFPAY ==
[2023-03-23 14:31] VITALS: BMI 22.4
--- NOTE | 2023-03-25 09:35 | MHC.SHP ---
Pre-Procedural Eval Section A Date of Service: 03/25/23 The patient is an INPATIENT: No Changes since office visit: No Cold of Flu in the past 2 weeks, No New Medical Problems, No Changes in Medication and No Patient answered all questions The History & Physical has been completed within 30 days and I have reviewed it.: Yes Section B Chief Complaint: Unilateral inguinal hernia, without obstruction or Allergies: Allergies Allergy/AdvReac Type Severity Reaction Status Date / Time No Known Allergies Allergy Verified 03/02/23 09:40 [No Known Allergies*] Plan I have reviewed the history and physical and performed a pertinent physical examination on my patient. No changes have occurred unless specified. Time Spent With Patient Time: Total time managing care of this patient today ____ minutes.
--- NOTE | 2023-03-25 10:16 | HO.ANESPROP2 ---
Documented by User: Lurdes Marina NP 03/25/23 10:17 HPI - Anesthesia Eval Consult details Narrative: 82yo M for open Hernia Repair Inguinal w/ mesh PMFSH Active Problems Active Problems: All Active Problems (Updated 10/06/22 @ 10:02 by Domo Perkins MD) Inguinal hernia (Acute) Weak urinary stream (Acute) Nocturia more than twice per night (Acute) Elevated PSA (Acute) Adult general medical exam (Acute) Toenail fungus (Acute) Screening for diabetes mellitus (Acute) Hyperlipidemia (Acute) RIZWAN on CPAP (Acute) IBS (irritable bowel syndrome) (Acute) Dyslipidemia (Acute) Past Medical History Medical History History of urinary frequency Screening for diabetes mellitus Hyperlipidemia RIZWAN on CPAP IBS (irritable bowel syndrome) Dyslipidemia Family History Family History Father Mental health disorder Mother No problems noted. Surgical History Surgical History History of colonoscopy Social History Social History Housing: House Alcohol intake: current Patient Tobacco Use Status: Former Tobacco user Tobacco use type: Cigarette Years Smoked: 2 years. Over 60 years ago. e-Cigarette/Vaping Use: Never Used Second Hand Smoke Exposure: No Use of substances other than those prescribed or required for medical reasons: No Are you DNR?: No Advance Directives: No Advance Directives Information Provided: Yes service: No Current occupational status: retired Cognitive needs: No Hearing needs: No Vision needs: No Meds Allergies Allergy/AdvReac Type Severity Reaction Status Date / Time No Known Allergies Allergy Verified 03/02/23 09:40 [No Known Allergies*] Home Medications Medication Instructions Recorded Confirmed Last Taken Type metronidazole 0.75 % topical cream appl topical BID PRN Rash 06/17/21 02/18/23 03/26/23 History Exam Exam Date and Time: March 25, 2023 1016 Height,Weight and Vital Signs: Height 6 ft Weight 74.843 kg Assessment and Plan Assessment Anesthesia Assessment: Chart Reviewed Documented by User: Camille Vaughan MD 03/26/23 12:44 HPI - Anesthesia Eval Consult details Narrative: 82yo M for open Left Inguinal Hernia Repair w/ mesh PMFSH Active Problems Active Problems: All Active Problems (Updated 03/26/23 @ 12:10 by Camille Vaughan MD) Inguinal hernia (Acute) Weak urinary stream (Acute) Nocturia more than twice per night (Acute) Elevated PSA (Acute) Adult general medical exam (Acute) Toenail fungus (Acute) Screening for diabetes mellitus (Acute) Hyperlipidemia (Acute) RIZWAN on CPAP (Acute) IBS (irritable bowel syndrome) (Acute) Dyslipidemia (Acute) BPH Advanced age Past Medical History Medical History History of urinary frequency Screening for diabetes mellitus Hyperlipidemia RIZWAN on CPAP IBS (irritable bowel syndrome) Dyslipidemia Family History Family History Father Mental health disorder Mother No problems noted. Family history of problems with anesthesia: No Surgical History Surgical History History of colonoscopy History of Problems with Anesthesia: No Social History Social History Housing: House Alcohol intake: current Patient Tobacco Use Status: Former Tobacco user Tobacco use type: Cigarette Years Smoked: 2 years. Over 60 years ago. e-Cigarette/Vaping Use: Never Used Second Hand Smoke Exposure: No Use of substances other than those prescribed or required for medical reasons: No Are you DNR?: No Advance Directives: No Advance Directives Information Provided: Yes service: No Current occupational status: retired Cognitive needs: No Hearing needs: No Vision needs: No Meds Allergies Allergy/AdvReac Type Severity Reaction Status Date / Time No Known Allergies Allergy Verified 03/02/23 09:40 [No Known Allergies*] Home Medications Medication Instructions Recorded Confirmed Last Taken Type metronidazole 0.75 % topical cream appl topical BID PRN Rash 06/17/21 02/18/23 03/26/23 History Exam Height,Weight and Vital Signs: Height 6 ft Weight 74.843 kg Vital Signs Temp Pulse Resp BP Pulse Ox O2 Del Method 03/26/23 11:40 98.4 F 78 18 137/71 97 Room Air Airway Mallampati Class: I TM Dist: >3cm Neck ROM: Full (H/o neck injury as a child but extension ok) Loose/Missing/Broken Teeth: Yes (1 extracted tooth. Denies broken or loose teeth) Heart: RRR Lungs: CTAB Assessment and Plan Assessment Anesthesia Assessment: Anesthesia Plan Discussed Final Anesthetic Review Family History of Problems with Anesthesia: No History of Problems with Anesthesia: No NPO: Yes ASA Class: III Final Preanesthetic Review: No Changes in Pt Med Stat, Meds/Allgs Chart Reviewed, Consent Obtained/Reviewed and Anes Risks/Benef Reviewed Patient Risk: Intermediate Procedure Risk: Low Assessment/Block/Sedation in SS: Assess/Block/Sedation-SS Anesthetic Plan Anesthetic Plan: MAC: Disposition: Standard PACU
--- OUTSIDE RECORDS SUMMARY | 2023-03-26 11:24 | XMS_ITS | Patient Health Record ---
Author Name Unknown [facility] [place] Address [address] [place] [address] Care Team Providers Care Clinical Recruiter Name Role Phone Clifford Ortega MD Primary Care Provider Akira Bedoya Unavailable [phone] ALLERGIES No Known Allergies REASON FOR REFERRAL No Information MEDICATIONS Medication SIG (Take, Route, Fr equency, Duration) Notes Start Date End Date Status Finasteride 5 MG 1 tablet Orally Once a day Active Simvastatin 20 MG 1 tablet in the even ing Orally Once a day for 30 day(s) Active IMMUNIZATIONS Vaccine Route Administration Date Status Comme nts COVID-19 Pfizer BioNTech Vaccine Unknown 10/27/2021 Administered 1st 08/26/2020 2nd 09/11/2020 3rd 04/16/2021 SOCIAL HISTORY Tobacco Use: Social History Observation Description Date Details (start date - stop date) Former Smoker NA - 03/05/2018 Sex Assigned At : Social History Observation Description Sex Assigned At Unknown Tobacco Use/Smoking Question Answer Notes Are you a: former smoker When did you stop smoking? 03/05/2018 Additional Findings: Tobacco Non-User Ex-cigaret te smoker Alcohol Screen Question Answer Notes Did you have a drink contain ing alcohol in the past year? Yes How often did you have a dri nk containing alcohol in the past year? Monthly or less (1 point) Points 1 Interpretation Negative Tobacco use other than smoking: Question Answer Notes Are you an other tobacco user? No PROBLEMS Problem Type ICD Code Onset Dates Problem Status W/U Status Risk SNOMED Code Notes Problem Other hammer toe(s) (acquired), right foot (M20.41) Active confirmed Acquired hammer toe of right foot (4966082405083 105) Problem Other hammer toe(s) (acquired), left foot (M20.42) Active confirmed Acquired hammer toe of left foot (1330699508064 103) Encounters Encounter Location Date Provider Diagnosis [address] [address] 04/27/2022 Akira Baird 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 ; Pain in right toe(s) M79.674 ; Pain in left toe(s) M79.675 ; Skin disease L98.9 ; Other hammer toe(s) (acquired), left foot M20.42 and Other hammer toe(s) (acquired), right foot M20.[address] [address] 07/29/2022 Akira Baird 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 ; Pain in right toe(s) M79.674 ; Pain in left toe(s) M79.675 ; Skin disease L98.9 ; Other hammer toe(s) (acquired), left foot M20.42 and Other hammer toe(s) (acquired), right foot M20.[address] [address] 07/29/2022 Akira Baird [address] [address] 10/22/2022 Akira Baird 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 ; Pain in right toe(s) M79.674 ; Pain in left toe(s) M79.675 ; Skin disease L98.9 ; Other hammer toe(s) (acquired), left foot M20.42 ; Other hammer toe(s) (acquired), right foot M20.41 and Ingrowing nail L60.[address] [address] 10/22/2022 Akira Baird ASSESSMENTS Encounter Date Diagnosis Assessment Notes Treatment Notes Treatment Clinical Notes 04/27/2022 Tinea unguium (ICD-10 - B35.1) 04/27/2022 Pain in right toe(s) (ICD-10 - M79.674) 07/29/2022 Tinea unguium (ICD-10 - B35.1) 10/22/2022 Tinea unguium (ICD-10 - B35.1) 10/22/2022 Pain in right toe(s) (ICD-10 - M79.674) 10/22/2022 Pain in left toe(s) (ICD-10 - M79.675) 07/29/2022 Pain in right toe(s) (ICD-10 - M79.674) 04/27/2022 Pain in left toe(s) (ICD-10 - M79.675) 07/29/2022 Pain in left toe(s) (ICD-10 - M79.675) 04/27/2022 Skin disease (ICD-10 - L98.9) 10/22/2022 Skin disease (ICD-10 - L98.9) 07/29/2022 Skin disease (ICD-10 - L98.9) 10/22/2022 Other hammer toe(s) (acquired), left foot (ICD-10 - M20.42) 04/27/2022 Other hammer toe(s) (acquired), left foot (ICD-10 - M20.42) 04/27/2022 Other hammer toe(s) (acquired), right foot (ICD-10 - M20.41) 07/29/2022 Other hammer toe(s) (acquired), left foot (ICD-10 - M20.42) 10/22/2022 Other hammer toe(s) (acquired), right foot (ICD-10 - M20.41) 10/22/2022 Ingrowing nail (ICD-10 - L60.0) 07/29/2022 Other hammer toe(s) (acquired), right foot (ICD-10 - M20.41) PLAN OF TREATMENT Pending Test Test Name Order Date [id number] OF HEMATOMA/FLUID 022 Insurance Providers Payer Name Payer Address Payer Phone Subscriber Number Group Number Insured Name Patient Relationship to Insured Coverage Start Date Coverage End Date Medicare National Govt [employer] [facility] [address] [place] [address] [id number] Olvin Ocasio Self - patient is the insured [employer] [address] [place] [address] [id number] Olvin Ocasio Self - patient is the insured MEDICAL (GENERAL) HISTORY Medical History History ICD Code CAD (Cholesterol) High blood pressure Measles Mumps Chicken pox Surgical History Surgery Date(Month/Year)
--- OUTSIDE RECORDS SUMMARY | 2023-03-26 11:25 | XMS_ITS | Patient Health Record ---
Author Name Unknown Organization [facility] Address [address] [place] [address] Care Team Providers Care Toll Bridge Attendant Name Role Phone Clifford Ortega MD Primary Care Provider Roopaa Geronimo Jaeger [phone] REASON FOR REFERRAL No Information MEDICATIONS Medication SIG (Take, Route, Fr equency, Duration) Notes Start Date End Date Status Simvastatin 20 MG 1 tablet in the even ing Orally Once a day for 30 day(s) Active IMMUNIZATIONS Vaccine Route Administration Date Status Comme nts Influenza Unknown 05/12/2018 Administered Influenza Unknown 04/18/2019 Administered Influenza Unknown 04/24/2020 Administered SOCIAL HISTORY Tobacco Use: Social History Observation Description Date Details (start date - stop date) Former Smoker NA - NA Sex Assigned At : Social History Observation Description Sex Assigned At Unknown Tobacco Use/Smoking Question Answer Notes Patient is a former smoker How long has it been since you last smoked? > 10 years Alcohol Screen Question Answer Notes Did you have a drink containing alcohol in the p ast year? No Points 0 Interpretation Negative PROBLEMS Problem Type ICD Code Onset Dates Problem Status W/U Status Risk SNOMED Code Notes Problem Hypertension, unspecified type (I10) Active confirmed 78234321 Problem Irritable bowel syndrome with both constipation and diarrhea (K58.2) Active confirmed 42387069 Problem Change in bowel habits (R19.4) Active confirmed 360773260 Problem Change in bowel function (R19.4) Active confirmed Altered bow el function (26653740) PLAN OF TREATMENT Future Test Test Name Order Date COLONOSCOPY 03/09/2019 Insurance Providers Payer Name Payer Address Payer Phone Subscriber Number Group Number Insured Name Patient Relationship to Insured Coverage Start Date Coverage End Date MEDICARE OF [place] [address] [place] [address] [phone] [id number] DENISHA BRIGGS Self - patient is the insured [employer] [address] [place] [address] [id number] DENISHA BRIGGS Self - patient is the insured MEDICAL (GENERAL) HISTORY Medical History History ICD Code Denies OH,DM,CVA,Lung disease,renal dise ase Neg. colonoscopy in [address] Escudero and neg limited colonoscopy/CT colonography with Dr. 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 celiac di sease labs in 2019 Surgical History Surgery Date(Month/Year)
[2023-03-26 11:40] VITALS: BP 137/71; PULSE 78; RESP 18; TEMP 36.9; O2SAT 97; BMI 22.1
[2023-03-26] MEDS: Lactated Ringers 1,000 ML 100 ML IVCONT (12:05)
--- NOTE | 2023-03-26 12:53 | W.PM.OPN ---
Operative Note Operative Note Date of Service: 03/26/23 Narrative: Preoperative diagnosis: [] Symptomatic left inguinal hernia Postop diagnosis: [] Same Procedure [] left open inguinal repair hernia Surgeon: [] Tirso Svp Marketing: [] Sami Type of Anesthesia: [] MAC Indication for surgery: [] Large indirect inguinal hernia. No direct hernia demonstrated. Findings: [] Patient brought to the operating room, placed on operative table supine position, after adequate level of MAC anesthesia was induced, the left groin was prepped and draped in usual sterile fashion. Using a small left para- inguinal incision, this carried down through skin, subcutaneous tissue, Xavier's fascia. External oblique fibers were opened direction with care to isolate and preserve the ilioinguinal nerve throughout the procedure. Hematocrit was identified and retracted from the field. No direct hernia was demonstrated. Exploration of the cord demonstrated moderately sized indirect hernia sac. This was from the spermatic cord and reduced. A Bard plug was placed in this indirect defect, and sutured inferiorly to the inguinal ligament and superiorly to the transversalis fascia using interrupted 0 Tycron sutures. Graft cover the entire inguinal floor. Wound was irrigated, and secured hemostasis. Wounds closed in the following manner; external oblique fascia was closed using running 2-0 Vicryl suture. Xavier's fascia was closed using up to 3-0 Vicryl sutures. Interrupted inverted deep dermal 3-0 Vicryl sutures followed by running subcuticular 4-0 Vicryl sutures were placed. Steri-Strips and sterile dressing was applied. Ipsilateral testicle was intrascrotal at completion the procedure. Sponge, needle, instrument counts reported correct. Patient tolerated the procedure well and emerged anesthesia in stable condition. EBL minimal
[2023-03-26 13:00] VITALS: BP 109/53; PULSE 54; RESP 16; TEMP 36.3; O2SAT 100
[2023-03-26 13:15] VITALS: BP 120/63; PULSE 56; RESP 16; O2SAT 97
[2023-03-26 13:30] VITALS: BP 122/61; PULSE 51; RESP 16; TEMP 36.4; O2SAT 96
--- NOTE | 2023-03-26 16:18 | P.OP_ITS ---
Operative Note Operative Note Date of Service: 03/26/23 Narrative: Preoperative diagnosis: [] Bilateral inguinal herniae Postop diagnosis: [] Same Procedure [] bilateral open inguinal hernia repair with Bard mesh Surgeon: [] Tirso Bioinformatics Programmer: [] Sami Type of Anesthesia: [] MAC converted to LMA Indication for surgery: [] Bilateral indirect inguinal herniae. No direct hernias bilaterally Findings: [] Patient brought to the operating room, placed on operative table in supine position, after adequate level of MAC then converted to general anesthesia because of patient's difficulty tolerating the procedure, bilateral groin areas were prepped and draped in usual sterile fashion. Each groin was approached using a small para-inguinal incision which was carried down through skin, subcutaneous tissue, Xavier's fascia respectively. External oblique fascia was opened in the direction of its fibers and respectively this matter cord was identified and retracted from the field. Patient had mere image inguinal indirect hernias. Each hernia sac was from the spermatic cord and reduced. A Bard plug was placed in each indirect hernia defect and circumferentially sutured inferiorly to the inguinal ligament and superiorly to the transversalis fascia using interrupted 0 Tycron suture. Each wound was irrigated, secured hemostasis, and closed in the following manner; external oblique fascia respectively was closed using running 2-0 Vicryl suture. Xavier's fascia was reapproximated using interrupted 3-0 Vicryl sutures. Interrupted inverted subdermal 3-0 Vicryl sutures followed by running subcuticular 4-0 Vicryl sutures were placed. Steri-Strips and sterile dressings were applied. Wounds have been infiltrated with 0.5% Marcaine/1% lidocaine. Sponge, needle, and instrument counts reported correct. Patient tolerated the procedure well and emerged from anesthesia in stable condition. EBL minimal Bilateral testicles were intrascrotal at completion the procedure.
== END 2023-03-26 14:05 | disposition home or self-care (01) ==
PROVIDERS: PCP Internal Medicine; Visit Provider Surgery
PROC: (CPT 49505; principal; 2023-03-26 13:30)
DX: K40.90 Unilateral inguinal hernia, without obstruction or gangrene, not specified as recurrent (principal); K58.9 Irritable bowel syndrome, unspecified; E78.5 Hyperlipidemia, unspecified; G47.33 Obstructive sleep apnea (adult) (pediatric); Z99.89 Dependence on other enabling machines and devices; Z87.891 Personal history of nicotine dependence
CPT/HCPCS: 49505; C1781; J0131; J0690; J3010

== ENCOUNTER → 2023-03-26 11:21 | Outpatient (BNV) | payer MEDICARE, SELFPAY | PROVIDERS: PCP Internal Medicine; Visit Provider Surgery | DX: K40.90 Unilateral inguinal hernia, without obstruction or gangrene, not specified as recurrent (principal) | CPT/HCPCS: 49505 ==

== ENCOUNTER 2023-04-02 08:43 | Outpatient (AMB) | payer MEDICARE, SELFPAY ==
--- NOTE | 2023-04-02 08:48 | MHC.OFFVIS ---
Intake Vital Signs 04/02/23 08:53 Height 6 ft Weight 165 lb BMI 22.4 BP 170/77 H Blood Pressure Location Rt brachial Position Sitting Pulse 53 Intake Visit Reasons: S/P open LIH w/mesh Intake Note: Patient here s/p open LIH w/mesh. Reports incisions healing well. Never took rx pain meds. Coiled Tubing Supervisor Required: No Accompanied by: Self / Same As Patient Allergies No Known Allergies [No Known Allergies*] Allergy (Verified 04/02/23 08:55) HPI HPI Comments History of Present Illness Details Follow-up status post left inguinal hernia repair. Patient has no incisional issues or complaints. He has time his diet. He is having normal bowel habits. He is ambulating well. Discomfort is minimal. [facility] Medical History Left inguinal hernia (03/26/23) History of urinary frequency Screening for diabetes mellitus Hyperlipidemia RIZWAN on CPAP IBS (irritable bowel syndrome) Dyslipidemia Surgical History History of colonoscopy Family History Father Mental health disorder Mother No problems noted. Social History Housing: House Alcohol intake: current Patient Tobacco Use Status: Former Tobacco user Tobacco use type: Cigarette Years Smoked: 2 years. Over 60 years ago. e-Cigarette/Vaping Use: Never Used Second Hand Smoke Exposure: No service: No Current occupational status: retired Cognitive needs: No Hearing needs: No Vision needs: No Physical Exam Vital Signs: Last Vital Signs Pulse 53 04/02/23 08:53 BP 170/77 H 04/02/23 08:53 BMI result Body Mass Index 22.4 GI Other: Abdomen soft. Wound clean dry and intact, healing uneventfully Assessment & Plan Assessment & Plan (1) Inguinal hernia: Code(s): K40.90 - Unilateral inguinal hernia, without obstruction or gangrene, not specified as recurrent Plan Patient has been given local instructions, and will follow-up p.r.n. Coding Level of Care Code Global (59283) Diagnoses Inguinal hernia K40.90
[2023-04-02 08:53] VITALS: BP 170/77; PULSE 53; BMI 22.4
== END 2023-04-02 09:11 | disposition home or self-care (01) ==
PROVIDERS: PCP Internal Medicine; Visit Provider Surgery
DX: K40.90 Unilateral inguinal hernia, without obstruction or gangrene, not specified as recurrent (principal)
CPT/HCPCS: 99024

== ENCOUNTER → 2023-04-02 08:43 | Outpatient (BNVA) | payer MEDICARE, SELFPAY | PROVIDERS: PCP Internal Medicine; Visit Provider Surgery ==

== ENCOUNTER 2023-04-09 14:52 | Outpatient (AMB) | payer MEDICARE, SELFPAY ==
--- NOTE | 2023-04-09 14:53 | MHC.OFFVIS ---
Intake Intake Visit Reasons: 6m/PVR Intake Note: Patient is Present for Telephone Follow Up Urology Med: Finasteride Antibiotic Allergy: None Blood Thinner: None Pharamcy: [facility] Allergies No Known Allergies [No Known Allergies*] Allergy (Verified 04/02/23 08:55) Medication List - Last Reconciled 04/09/23 by Domo Perkins MD finasteride 5 mg PO DAILY 90 days metronidazole 0.75% appl topical BID PRN simvastatin 20 mg PO DAILY tamsulosin 0.4 mg PO BEDTIME 30 days HPI HPI Comments History of Present Illness Details Olvin is a very pleasant male. He is a patient of Dr. Ray. He is seen for the following urologic conditions - elevated PSA - lower urinary tract symptoms Telemedicine Evaluation 15 min Consultation DoxGigaPan Tristian Video attempted Has noted some weakness of stream after hernia repair Add tamsulosin for 30 days Continue and review lab work in 6 months Elevated PSA Here for follow-up evaluation of elevated PSA and lower urinary tract symptoms Current therapy finasteride PSA 09/02 9.8, 10/01 5.0 12% Reports prior PSAs in the 3-4 range ALEXANDER 1+, soft nodule right base Initial urinary symptoms, is some degree of incomplete bladder emptying and hesitancy, nocturia 2-3 Repeat PSA in 6 months PFSH Medical History Left inguinal hernia (03/26/23) History of urinary frequency Screening for diabetes mellitus Hyperlipidemia RIZWAN on CPAP IBS (irritable bowel syndrome) Dyslipidemia Surgical History History of colonoscopy Family History Father Mental health disorder Mother No problems noted. Social History Housing: House Alcohol intake: current Patient Tobacco Use Status: Former Tobacco user Tobacco use type: Cigarette Years Smoked: 2 years. Over 60 years ago. e-Cigarette/Vaping Use: Never Used Second Hand Smoke Exposure: No service: No Current occupational status: retired Cognitive needs: No Hearing needs: No Vision needs: No Review of Systems Const All systems reviewed & are unremarkable except as noted in HPI and below Reports no additional complaints Resp Reports no additional complaints GI Reports no additional complaints Reports as per HPI Musc Reports no additional complaints Physical Exam Telemedicine evaluation Appropriate responses Regular breathing rate and rhythm HEENT Head: Yes normal to inspection Ears: hearing grossly normal bilaterally Eyes General: appearance normal, both eyes and all related structures Neck Neck: Yes normal visual inspection Chest Chest palpation & inspection: normal inspection of the chest Resp Effort & Inspection: normal respiratory effort and able to speak in complete sentences Assessment & Plan Assessment & Plan (1) Weak urinary stream: Code(s): R39.12 - Poor urinary stream (2) Nocturia more than twice per night: Code(s): R35.1 - Nocturia (3) Elevated PSA: Code(s): R97.20 - Elevated prostate specific antigen [PSA] Plan Six month follow-up Orders: Orders PSA,Total (Free>4and<10) 6 Months R97.20 - Elevated prostate specific antigen [PSA] Medications: New tamsulosin 0.4 mg PO BEDTIME 30 caps 1RF 30 days R35.1 - Nocturia, R39.12 - Poor urinary stream Refilled finasteride 5 mg PO DAILY 90 tabs 1RF 90 days N13.8 - Other obstructive and reflux uropathy, N40.1 - Benign prostatic hyperplasia with lower urinary tract symptoms, R33.9 - Retention of urine, unspecified, R97.20 - Elevated prostate specific antigen [PSA] Patient Instructions: Imaging studies, laboratory and physical exam results were discussed and reviewed in detail. No major barriers to patient understanding were identified. An opportunity to ask questions regarding the treatment plan was provided. All questions were answered. The patient expressed understanding and agreement with the above treatment plan. The patient is aware they should contact our office by phone for worsening of their current condition or the appearance of new urologic symptoms. Compliance is encouraged with any medications and followup testing that is ordered. It is a privilege to participate in the urologic care of your patient. If you have any questions or concerns regarding treatment for the above conditions, or other urologic issues, please do not hesitate to contact me. The office telephone contact is [phone]. This note is constructed using voice recognition software. While every effort has been made to ensure accuracy supervisor open hearth stockyard errors may have been included. Yours sincerely, Dr Domo Perkins MD, [facility] - Urology Providers of Expert, Compassionate Care for the Genitourinary System Telehealth Telehealth Location of provider rendering services: practice address Location of patient: address on file Patient Identification confirmed using: Name, : Yes Telehealth method: video Patient verbally consented to treatment: Yes Patient verbally consented to billing insurance company: Yes Patient informed of any privacy concerns related to visit: Yes Coding Level of Care Code Tele Est Pt Level 3 (07540) Diagnoses Weak urinary stream R39.12 Nocturia more than twice per night R35.1 Elevated PSA R97.20
--- OUTSIDE RECORDS SUMMARY | 2023-04-09 15:07 | XMS_ITS | Patient Health Record ---
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 ; Pain in right toe(s) M79.674 ; Pain in left toe(s) M79.675 ; Skin disease L98.9 ; Other hammer toe(s) (acquired), left foot M20.42 and Other hammer toe(s) (acquired), right foot M20.[address] [address] 07/29/2022 Akira Baird 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 ; Pain in right toe(s) M79.674 ; Pain in left toe(s) M79.675 ; Skin disease L98.9 ; Other hammer toe(s) (acquired), left foot M20.42 and Other hammer toe(s) (acquired), right foot M20.[address] [address] 07/29/2022 Akira Baird [address] [address] 10/22/2022 Akira Baird 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 ; Pain in right toe(s) M79.674 ; Pain in left toe(s) M79.675 ; Skin disease L98.9 ; Other hammer toe(s) (acquired), left foot M20.42 ; Other hammer toe(s) (acquired), right foot M20.41 and Ingrowing nail L60.[address] [address] 10/22/2022 Akira Baird ASSESSMENTS Encounter Date Diagnosis [...] TREATMENT Pending Test Test Name Order Date [id number] OF HEMATOMA/FLUID 022 Insurance Providers Payer Name Payer Address Payer Phone Subscriber Number Group Number Insured Name Patient Relationship to Insured Coverage Start Date Coverage End Date Medicare National [employer] [address] [place] [address] [phone] [id number] Olvin Ocasio Self - patient is the insured [facility] [address] [place] [address] [id number] Olvin Ocasio Self - patient is the insured MEDICAL (GENERAL) HISTORY Medical History History ICD Code CAD (Cholesterol) High blood pressure Measles Mumps Chicken pox Surgical History Surgery Date(Month/Year)
--- OUTSIDE RECORDS SUMMARY | 2023-04-09 15:07 | XMS_ITS | Patient Health Record ---
Author Name Unknown Organization [facility] Address [address] [place] [address] Care Team Providers Care Peanut Roaster Name Role Phone Clifford Ortega MD Primary Care Provider Roopaa Geronimo Jaeger [phone] REASON FOR REFERRAL No Information MEDICATIONS Medication [...] Problem Hypertension, unspecified type (I10) Active confirmed 91928661 Problem Irritable bowel syndrome with both constipation and diarrhea (K58.2) Active confirmed [id number] Problem Change in bowel habits (R19.4) Active confirmed [id number] Problem Change in bowel function (R19.4) Active confirmed Altered bow el function (35456696) PLAN OF TREATMENT Future Test Test Name Order Date COLONOSCOPY 03/09/2019 Insurance Providers Payer Name Payer Address Payer Phone Subscriber Number Group Number Insured Name Patient Relationship to Insured Coverage Start Date Coverage End Date MEDICARE OF [place] [address] [place] [address] [id number] DENISHA BRIGGS Self - patient is the insured [employer] CLAIM[employer] [address] [place] [address] [id number] DENISHA BRIGGS Self - patient is the insured MEDICAL (GENERAL) HISTORY Medical History History ICD Code Denies AR,DM,CVA,Lung disease,renal dise ase Neg. colonoscopy in [address] Escudero and neg limited colonoscopy/CT colonography with Dr. 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 celiac di sease labs in 2019 Surgical History Surgery Date(Month/Year)
== END 2023-04-09 15:21 | disposition home or self-care (01) ==
LOC: HO.HUSH 14:52
PROVIDERS: PCP Internal Medicine; Visit Provider Urology
DX: R39.12 Poor urinary stream (principal); R35.1 Nocturia; R97.20 Elevated prostate specific antigen [PSA]
CPT/HCPCS: 99213

== ENCOUNTER → 2023-04-09 14:52 | Outpatient (BNVA) | payer MEDICARE, SELFPAY | PROVIDERS: PCP Internal Medicine; Visit Provider Urology ==

== ENCOUNTER 2023-05-25 10:55 | Outpatient (REF) | payer SELFPAY | END 2023-05-25 10:56 | disposition home or self-care (01) | LOC: HO.HAP 10:55 | PROVIDERS: Visit Provider Internal Medicine | DX: Z13.89 Encounter for screening for other disorder (principal) ==

== ENCOUNTER 2023-06-10 09:55 | Outpatient (AMB) | payer MEDICARE, SELFPAY ==
--- NOTE | 2023-06-10 10:00 | A.OFFVIS_ITS ---
Intake Vital Signs 06/10/23 10:03 Height 6 ft Weight 170 lb BMI 23.1 BP 152/62 H Blood Pressure Location Lt brachial Position Sitting Pulse 66 Pulse Source Pulse Oximeter Pulse Oximetry (%) 98 Oxygen Delivery Method Room Air Intake Visit Reasons: Sleep apnea Intake Note: yearly follow up and still using the cpap, he cannot tell if it is helping. [facility] is DME, he has a new mask airfit F30 over bridge of nose. 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 Now he comes for follow-up mainly because of obstructive sleep apnea being treated with CPAP. 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 Since last year he has a new CPAP device. He is happy with the CPAP device as well as the mask. He does use it for about 6 hours every night and sleeps well. At present he has no complaints related to the CPAP equipment. [facility] Medical History Left inguinal hernia (03/26/23) History of urinary frequency Screening for diabetes mellitus Hyperlipidemia RIZWAN on CPAP IBS (irritable bowel syndrome) Dyslipidemia Surgical History History of colonoscopy Family History Father Mental health disorder Mother No problems noted. Social History Housing: House Alcohol intake: current Patient Tobacco Use Status: Former Tobacco user Tobacco use type: Cigarette Years Smoked: 2 years. Over 60 years ago. e-Cigarette/Vaping Use: Never Used Second Hand Smoke Exposure: No service: No Current occupational status: retired Cognitive needs: No Hearing needs: No Vision needs: No Review of Systems Const All systems reviewed & are unremarkable except as noted in HPI and below Eyes Reports no additional complaints ENT Reports nasal congestion (Mild intermittent.) Card Denies chest pain, Denies irregular heart rhythm, Denies leg edema and Denies dyspnea Resp Reports no additional complaints, Denies cough, Denies dyspnea and Denies wheezing GI Reports no additional complaints Reports no additional complaints Musc Reports no additional complaints Skin/Breast Reports system reviewed and no additional complaints, except as documented Neuro Reports no additional complaints Psych Reports no additional complaints Aller/Immun Denies wheezing Physical Exam Vital Signs: Last Vital Signs Pulse 66 06/10/23 10:03 BP 152/62 H 06/10/23 10:03 Pulse Ox 98 06/10/23 10:03 Oxygen Delivery Method Room Air 06/10/23 10:03 BMI result Body Mass Index 23.1 Const General: healthy appearing, comfortable, no acute distress, alert and awake Orientation/consciousness: patient oriented x3 HEENT Head: Yes normal to inspection General nose exam: No nasal polyps present and No nasal discharge present Face and sinus: Yes sinuses nontender Mouth: oropharynx normal Teeth and gingiva: other (He has chronic Retroganthia of the lower jaw.) Throat: Yes posterior oropharynx normal Eyes General: appearance normal, both eyes and all related structures Neck Neck: Yes normal visual inspection, Yes no lymphadenopathy, Yes trachea midline and Yes no JVD Thyroid: Thyroid normal Chest Chest palpation & inspection: normal inspection of the chest, normal palpation of entire chest wall and no tenderness Resp Effort & Inspection: normal respiratory effort Auscultation: clear to auscultation bilaterally Percussion: percussion normal Cardio Palpation: normal PMI Rate: regular rate Rhythm: regular rhythm Heart sounds: no gallops and no murmurs Peripheral pulses: Peripheral pulses 2+ throughout GI Palpation (GI): Soft to palpation, nontender, No hepatosplenomegaly present and no masses Auscultation: normal bowel sounds Back/Spine/Pelvis Thoracic/Lumbar Spine: thoracic and lumbar spine normal to inspection Skin General skin exam: no rashes or lesions noted Neuro General: patient oriented x3 and no focal motor deficits Cranial nerves: Yes CN's II-XII intact bilaterally Extrem General: Yes normal to inspection, Yes no clubbing, cyanosis or edema and Yes no calf tenderness Psych Appearance: grossly normal and well kempt Speech and movement: Normal speech and movement present Assessment & Plan Assessment & Plan (1) RIZWAN on CPAP: Comment: RIZWAN, sec to Андрей-dental mal-formation ( Retroganthia ) Treated with CPAP , and he is very compliant . Sleep quality much improved , with use of CPAP . Code(s): G47.33 - Obstructive sleep apnea (adult) (pediatric); Z99.89 - Dependence on other enabling machines and devices Plan: Advised to continue using the CPAP regularly every night. I had a arsh discussion with him and told him that he is going to need to use CPAP. For rest of his life. He is very happy and will be coming to see me once a year and as needed. Coding Level of Care Code Est Pt Level 3 (80926) Diagnoses RIZWAN on CPAP G47.33; Z99.89
[2023-06-10 10:03] VITALS: BP 152/62; PULSE 66; O2SAT 98; BMI 23.1
== END 2023-06-10 10:26 | disposition home or self-care (01) ==
PROVIDERS: PCP Internal Medicine; Visit Provider Internal Medicine
DX: G47.33 Obstructive sleep apnea (adult) (pediatric) (principal); Z99.89 Dependence on other enabling machines and devices
CPT/HCPCS: 99213

== ENCOUNTER → 2023-06-10 09:55 | Outpatient (BNVA) | payer MEDICARE, SELFPAY | PROVIDERS: PCP Internal Medicine; Visit Provider Internal Medicine | DX: G47.33 Obstructive sleep apnea (adult) (pediatric) (principal); M26.19 Other specified anomalies of jaw-cranial base relationship; Z87.891 Personal history of nicotine dependence; Z99.89 Dependence on other enabling machines and devices | CPT/HCPCS: 99212 ==

== ENCOUNTER 2023-06-17 14:55 | Outpatient (REF) | payer SELFPAY | END 2023-06-17 14:56 | disposition home or self-care (01) | LOC: HO.HAP 14:55 | PROVIDERS: Visit Provider Internal Medicine | DX: Z46.1 Encounter for fitting and adjustment of hearing aid (principal); H90.3 Sensorineural hearing loss, bilateral; H61.23 Impacted cerumen, bilateral | CPT/HCPCS: V5014 ==

== ENCOUNTER 2023-08-23 08:18 | Outpatient (AMB) | payer MEDICARE, SELFPAY ==
[2023-08-23 08:32] VITALS: BP 162/60; PULSE 59; O2SAT 98; BMI 22.9
--- NOTE | 2023-08-23 08:32 | A.OFFPC_ITS ---
Vital Signs 08/23/23 08:32 Height 6 ft Weight 169 lb BMI 22.9 BP 162/60 H Blood Pressure Location Lt brachial Position Sitting Pulse 59 Pulse Source Pulse Oximeter Pulse Oximetry (%) 98 Oxygen Delivery Method Room Air Intake Visit Reasons: 6mth f/u Sheriff Officer Required: No Treatment Supervisor: Not Required per policy Accompanied by: Self / Same As Patient Allergies No Known Allergies [No Known Allergies*] Allergy (Verified 08/23/23 08:32) Medication List - Last Reconciled 08/23/23 by Clifford Ortega MD finasteride 5 mg PO DAILY 90 days metronidazole 0.75% appl topical BID PRN simvastatin 20 mg PO DAILY tamsulosin 0.4 mg PO BEDTIME 30 days Tobacco use date assessed: 08/23/23 Fall risk assessment: No Falls in past year Last assessed Fall Risk: 08/23/23 Dental Screening Dental Screen Date: 08/23/23 Did you have a dental visit in the last 12 months?: Yes Did you have a dental problem in the last 6 months where you did not have access to dental care?: No Was dental information given to patient?: Patient has dentist HPI 6mth f/u HPI Details hyperlip on rx; doing well and compliant [facility] Medical History Left inguinal hernia (03/26/23) History of urinary frequency Screening for diabetes mellitus Hyperlipidemia RIZWAN on CPAP IBS (irritable bowel syndrome) Dyslipidemia Surgical History History of colonoscopy Family History Father Mental health disorder Mother No problems noted. Social History Housing: House Alcohol intake: current Patient Tobacco Use Status: Former Tobacco user Tobacco use type: Cigarette Years Smoked: 2 years. Over 60 years ago. e-Cigarette/Vaping Use: Never Used Second Hand Smoke Exposure: No service: No Current occupational status: retired Cognitive needs: No Hearing needs: No Vision needs: No Questionnaire PHQ-9 Over the last 2 weeks, how often have you been bothered by any of the following problems? 1. Little interest or pleasure in doing things: not at all 2. Feeling down, depressed, or hopeless: not at all 3. Trouble falling or staying asleep, or sleeping too much: not at all 4. Feeling tired or having little energy: not at all 5. Poor appetite or overeating: not at all 6. Feeling bad about yourself - or that you are a failure or have let yourself or your family down: not at all 7. Trouble concentrating on things, such as reading the newspaper or watching television: not at all 8. Moving or speaking so slowly that other people could have noticed. Or the opposite - being so fidgety or restless that you have been moving around a lot more than usual: not at all 9. Thoughts that you would be better off or of hurting yourself in some way: not at all Total score: 0 Depression Screening Interpretation: Negative Depression Screening Done: Yes 58397 - PHQ-9 Billing: Yes Source: Developed by Drs. Geronimo Garcia, Cortney Mathis, Santana Jaime and colleagues, with an educational germain from [employer]. Thrive Questionnaire Date Thrive assessed: 08/23/23 I am a: Patient What is your living situation today?: I have a steady place to live Within the past 12 months, did the food you bought not last and you didn't have the money to get more?: Never true Within the past 12 months, did you worry whether your food would run out before you got money to buy more?: Never true Do you have trouble paying for medicines?: No Do you have trouble getting transportation to medical appointments?: No Do you have trouble paying your heating and electricity bill?: No Do you have trouble taking care of your child, family member or friend?: No Do you have trouble with day-to-day activities such as bathing, preparing meals, shopping, managing finances, etc.?: No Are you currently unemployed and looking for a job?: No Are you interested in more education?: No Please select the resources that you would like help with: None THRIVE Score: 0 AUDIT C Alcohol Use Questionnaire (AUDIT-C) Score Reviewed/Action Taken: Yes GUERRERO-7 AMB Questionnaire GUERRERO-7 Date GUERRERO - 7 assessed: 08/23/23 Feeling nervous, anxious, or on edge: 0 = Not at all Not being able to stop or control worryin = Not at all Worrying too much about different things: 0 = Not at all Trouble relaxin = Not at all Being so restless that it is hard to sit still: 0 = Not at all Becoming easily annoyed or irritable: 0 = Not at all Feeling afraid as if something awful might happen: 0 = Not at all Total GUERRERO-7 score (0-4 normal; 5-9 mild; 10-14 moderate; 15-21 severe): 0 Source: Developed by Drs. Geronimo Garcia, Cortney Mathis, Santana Jaime and colleagues, with an educational germain from [employer]. GUERRERO-7 Assessment Billing GUERRERO-7 Assessment Tool: GUERRERO-7 Assessment 28570 Review of Systems Const Denies chills, Denies headache(s) and Denies weight loss ENT Denies headache(s) Card Denies chest pain, Denies syncope, Denies irregular heart rhythm and Denies dyspnea Resp Denies chest congestion, Denies cough and Denies dyspnea GI Denies abdominal pain, Denies change in stool character, Denies nausea and Denies vomiting Musc Denies deformity and Denies joint swelling Neuro Denies syncope and Denies headache(s) Physical exam (Primary Care) Vital Signs: Last Vital Signs Pulse 59 08/23/23 08:32 BP 162/60 H 08/23/23 08:32 Pulse Ox 98 08/23/23 08:32 Oxygen Delivery Method Room Air 08/23/23 08:32 BMI result Body Mass Index 22.9 Tobacco/Smoking Status: Tobacco use Status Tobacco use date assessed 08/23/23 08/23/23 08:39 Patient Tobacco Use Status Former Tobacco user 08/23/23 08:39 Tobacco use type Cigarette 08/23/23 08:39 e-Cigarette/Vaping Use Never Used 08/23/23 08:39 PHQ-9: PHQ-9 Score PHQ-9: Total score 0 08/23/23 08:39 Depression Screening Interpretation: Negative Thrive Assessment: Date of Thrive Assessment Date Thrive assessed 08/23/23 08/23/23 08:39 Const General: cooperative, comfortable, no acute distress and alert Neck Neck: Yes no lymphadenopathy Thyroid: Thyroid normal Resp Effort & Inspection: normal respiratory effort Auscultation: clear to auscultation bilaterally Percussion: percussion normal Cardio Jugular venous distension: no JVD Palpation: normal PMI Rate: regular rate Rhythm: regular rhythm Heart sounds: S1 normal heart sound present and S2 normal heart sound present GI Inspection: Yes normal to inspection Palpation (GI): No hepatosplenomegaly present Skin General skin exam: no rashes or lesions noted Extrem General: Yes no clubbing, cyanosis or edema Assessment and Plan Assessment & Plan (1) Hyperlipidemia: Code(s): E78.5 - Hyperlipidemia, unspecified Plan: stable; same rx Orders: Orders Lipid Panel Today E78.5 - Hyperlipidemia, unspecified Coding Level of Care Code Est Pt Level 3 (39899) Diagnoses Hyperlipidemia E78.5 Additional Codes GUERRERO-7 Assessment Billing - GUERRERO-7 Assessment Tool: GUERRERO-7 Assessment 35286 ([id number])
== END 2023-08-23 08:53 | disposition home or self-care (01) ==
PROVIDERS: PCP Internal Medicine; Visit Provider Internal Medicine
DX: E78.5 Hyperlipidemia, unspecified (principal)
CPT/HCPCS: 99213

== ENCOUNTER 2023-09-30 07:57 | Outpatient (REF) | payer MEDICARE, SELFPAY ==
[2023-09-30 09:42] LABS: PSA,Total (Free>4and<10) 4.82 ng/mL (0.00-4.00)
[2023-10-01 10:54] LABS: Free Prostate Spec Ag 0.5 ng/mL; Percent Free Prostate Spec Ag 11 % (calc) (>25); Prostate Specific Ag Total 4.5 ng/mL (< OR = 4.0)
== END 2023-09-30 07:58 | disposition home or self-care (01) ==
LOC: HO.LAB 07:57
PROVIDERS: Visit Provider Urology
DX: Z12.5 Encounter for screening for malignant neoplasm of prostate (principal); R97.20 Elevated prostate specific antigen [PSA]
CPT/HCPCS: 36415; 84153; 84154

== ENCOUNTER 2023-10-06 13:08 | Outpatient (AMB) | payer MEDICARE, SELFPAY ==
--- NOTE | 2023-10-06 13:09 | MHC.OFFVIS ---
Intake Intake Visit Reasons: 6M PSA(set)confirmed Intake Note: Patient presents today for a follow up on PSA Meds- Finasteride Allergies to Antibiotic- No Known Allergies Blood Thinner- None Post Void Residual: 148ml Patient did not void prior to PVR. Utility Plant Operative Required: No Accompanied by: Self / Same As Patient Allergies No Known Allergies [No Known Allergies*] Allergy (Verified 10/06/23 13:22) HPI HPI Comments History of Present Illness Details Olvin is a very pleasant male. He is a patient of Dr. Ray. 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 Elevated PSA Here for follow-up evaluation of elevated PSA and lower urinary tract symptoms Current therapy finasteride plus tamsulosin PSA 09/02 9.8, 10/01 5.0 12% Reports prior PSAs in the 3-4 range ALEXANDER 1+, soft nodule right base Initial urinary symptoms, is some degree of incomplete bladder emptying and hesitancy, nocturia 2-3 Repeat PSA in 6 months PFSH Medical History Left inguinal hernia (03/26/23) History of urinary frequency Screening for diabetes mellitus Hyperlipidemia RIZWAN on CPAP IBS (irritable bowel syndrome) Dyslipidemia Surgical History History of colonoscopy Family History Father Mental health disorder Mother No problems noted. Social History Housing: House Alcohol intake: current Patient Tobacco Use Status: Former Tobacco user Tobacco use type: Cigarette Years Smoked: 2 years. Over 60 years ago. e-Cigarette/Vaping Use: Never Used Second Hand Smoke Exposure: No service: No Current occupational status: retired Cognitive needs: No Hearing needs: No Vision needs: No Review of Systems Const Denies chills and Denies fever(s) Card Reports no additional complaints and Denies syncope Resp Denies cough GI Denies abdominal pain and Denies heartburn Reports as per HPI and Denies change in libido Neuro Denies syncope Psych Denies change in libido Endo Denies change in libido Physical Exam Const General: cooperative, healthy appearing, comfortable and no acute distress Orientation/consciousness: patient oriented x3 HEENT Face and sinus: Yes normal facial exam Mouth: moist mucous membranes Neck Neck: Yes normal visual inspection, Yes full ROM and Yes trachea midline Chest Chest palpation & inspection: normal inspection of the chest Resp Effort & Inspection: normal respiratory effort, able to speak in complete sentences and no respiratory distress GI Inspection: Yes normal to inspection Back/Spine/Pelvis Cervical Spine: normal cervical lordosis Thoracic/Lumbar Spine: thoracic and lumbar spine normal to inspection Skin General skin exam: no rashes or lesions noted Neuro General: patient oriented x3, gait normal, tone normal and moves all extremities Extrem General: Yes normal to inspection and Yes capillary refill normal Office Procedures Post Void Residual Post Residual Void Post Void Residual (PVR): 148 [id number] Void Residual by ultrasound Assessment & Plan Assessment & Plan (1) Elevated PSA: Code(s): R97.20 - Elevated prostate specific antigen [PSA] (2) Weak urinary stream: Code(s): R39.12 - Poor urinary stream (3) Nocturia more than twice per night: Code(s): R35.1 - Nocturia Plan Six-month follow-up PVR Orders: Orders AMB Post Void Residual by ultrasound Today R33.9 - Retention of urine, unspecified Medications: Refilled tamsulosin 0.4 mg PO BEDTIME 30 caps 1RF 30 days R35.1 - Nocturia, R39.12 - Poor urinary stream Patient Instructions: Imaging studies, laboratory and physical exam results were discussed and reviewed in detail. No major barriers to patient understanding were identified. An opportunity to ask questions regarding the treatment plan was provided. All questions were answered. The patient expressed understanding and agreement with the above treatment plan. The patient is aware they should contact our office by phone for worsening of their current condition or the appearance of new urologic symptoms. Compliance is encouraged with any medications and followup testing that is ordered. It is a privilege to participate in the urologic care of your patient. If you have any questions or concerns regarding treatment for the above conditions, or other urologic issues, please do not hesitate to contact me. The office telephone contact is [phone]. This note is constructed using voice recognition software. While every effort has been made to ensure accuracy division engineer errors may have been included. Yours sincerely, Dr Domo Perkins MD, [facility] - Urology Providers of Expert, Compassionate Care for the Genitourinary System Coding Level of Care Code Est Pt Level 4 (24665) Diagnoses Elevated PSA R97.20 Weak urinary stream R39.12 Nocturia more than twice per night R35.1 CPT Codes Post Residual Void - PVR CPT Code: 05156-Jtej Void Residual by ultrasound ([id number])
== END 2023-10-06 13:49 | disposition home or self-care (01) ==
PROVIDERS: PCP Internal Medicine; Visit Provider Urology
DX: R97.20 Elevated prostate specific antigen [PSA] (principal); R39.12 Poor urinary stream; R35.1 Nocturia
CPT/HCPCS: 99213

== ENCOUNTER → 2023-10-06 13:08 | Outpatient (BNVA) | payer MEDICARE, SELFPAY | PROVIDERS: PCP Internal Medicine; Visit Provider Urology | DX: R97.20 Elevated prostate specific antigen [PSA] (principal); R39.12 Poor urinary stream; R35.1 Nocturia | CPT/HCPCS: 51798; 99212 ==

== ENCOUNTER 2024-02-21 11:28 | Outpatient (AMB) | payer MEDICARE, SELFPAY ==
[2024-02-21 11:32] VITALS: BP 138/62; PULSE 52; O2SAT 99; BMI 24.0
--- NOTE | 2024-02-21 11:32 | MHC.PC.OV ---
Vital Signs 02/21/24 11:32 Height 5 ft 10 in Weight 167 lb BMI 24.0 BP 138/62 Blood Pressure Location Lt brachial Position Sitting Pulse 52 Pulse Source Pulse Oximeter Pulse Oximetry (%) 99 Oxygen Delivery Method Room Air Intake Visit Reasons: 6mth f/u Allergies No Known Allergies [No Known Allergies*] Allergy (Verified 02/21/24 11:33) Tobacco use date assessed: 08/23/23 Fall risk assessment: No Falls in past year Last assessed Fall Risk: 02/21/24 Dental Screening Dental Screen Date: 08/23/23 HPI 6mth f/u HPI Details HTN on Rx; doing well and compliant [facility] Medical History Left inguinal hernia (03/26/23) History of urinary frequency Screening for diabetes mellitus Hyperlipidemia RIZWAN on CPAP IBS (irritable bowel syndrome) Dyslipidemia Surgical History History of colonoscopy Family History Father Mental health disorder Mother No problems noted. Social History Housing: House Alcohol intake: current Patient Tobacco Use Status: Former Tobacco user Tobacco use type: Cigarette Years Smoked: 2 years. Over 60 years ago. e-Cigarette/Vaping Use: Never Used Second Hand Smoke Exposure: No service: No Current occupational status: retired Cognitive needs: No Hearing needs: No Vision needs: No Questionnaire PHQ-9 Over the last 2 weeks, how often have you been bothered by any of the following problems? 1. Little interest or pleasure in doing things: not at all 2. Feeling down, depressed, or hopeless: not at all 3. Trouble falling or staying asleep, or sleeping too much: not at all 4. Feeling tired or having little energy: not at all 5. Poor appetite or overeating: not at all 6. Feeling bad about yourself - or that you are a failure or have let yourself or your family down: not at all 7. Trouble concentrating on things, such as reading the newspaper or watching television: not at all 8. Moving or speaking so slowly that other people could have noticed. Or the opposite - being so fidgety or restless that you have been moving around a lot more than usual: not at all 9. Thoughts that you would be better off or of hurting yourself in some way: not at all Total score: 0 Depression Screening Interpretation: Negative Depression Screening Done: Yes 88622 - PHQ-9 Billing: Yes Source: Developed by Drs. Geronimo Garcia, Corntey Mathis, Santana Jaime and colleagues, with an educational germain from [employer]. Thrive Questionnaire Date Thrive assessed: 08/23/23 AUDIT C Alcohol Use Questionnaire (AUDIT-C) 1. How often do you have a drink containing alcohol?: Never 3. How often do you have six or more drinks on one occasion?: Never Total Score: 0 Score Reviewed/Action Taken: Yes GUERRERO-7 AMB Questionnaire GUERRERO-7 Date GUERRERO - 7 assessed: 08/23/23 Source: Developed by Drs. Geronimo Garcia, Cortney Mathis, Santana Jaime and colleagues, with an educational germain from [employer]. Review of Systems Const Denies chills, Denies headache(s) and Denies weight loss ENT Denies headache(s) Card Denies chest pain, Denies syncope, Denies irregular heart rhythm and Denies dyspnea Resp Denies chest congestion, Denies cough and Denies dyspnea GI Denies abdominal pain, Denies change in stool character, Denies nausea and Denies vomiting Musc Denies deformity and Denies joint swelling Neuro Denies syncope and Denies headache(s) Physical exam (Primary Care) Vital Signs: Last Vital Signs Pulse 52 02/21/24 11:32 BP 138/62 02/21/24 11:32 Pulse Ox 99 02/21/24 11:32 Oxygen Delivery Method Room Air 02/21/24 11:32 BMI result Body Mass Index 24.0 Tobacco/Smoking Status: Tobacco use Status Tobacco use date assessed 08/23/23 02/21/24 11:33 Patient Tobacco Use Status Former Tobacco user 02/21/24 11:33 Tobacco use type Cigarette 02/21/24 11:33 e-Cigarette/Vaping Use Never Used 02/21/24 11:33 PHQ-9: PHQ-9 Score PHQ-9: Total score 0 02/21/24 11:33 Depression Screening Interpretation: Negative Thrive Assessment: Date of Thrive Assessment Date Thrive assessed 08/23/23 02/21/24 11:33 Const General: cooperative, comfortable, no acute distress and alert Neck Neck: Yes no lymphadenopathy Thyroid: Thyroid normal Resp Effort & Inspection: normal respiratory effort Auscultation: clear to auscultation bilaterally Percussion: percussion normal Cardio Jugular venous distension: no JVD Palpation: normal PMI Rate: regular rate Rhythm: regular rhythm Heart sounds: S1 normal heart sound present and S2 normal heart sound present GI Inspection: Yes normal to inspection Palpation (GI): No hepatosplenomegaly present Skin General skin exam: no rashes or lesions noted Extrem General: Yes no clubbing, cyanosis or edema Assessment and Plan Assessment & Plan (1) Hypertension: Code(s): I10 - Essential (primary) hypertension Plan: stable; same rx Coding Level of Care Code Est Pt Level 3 (85211) Diagnoses Hypertension I10
== END 2024-02-21 12:10 | disposition home or self-care (01) ==
PROVIDERS: PCP Internal Medicine; Visit Provider Internal Medicine
DX: I10 Essential (primary) hypertension (principal)
CPT/HCPCS: 99213

== ENCOUNTER 2024-02-22 11:19 | Outpatient (REF) | payer SELFPAY | END 2024-02-22 11:20 | disposition home or self-care (01) | LOC: HO.HAP 11:19 | PROVIDERS: Visit Provider Internal Medicine | DX: Z13.89 Encounter for screening for other disorder (principal) ==

== ENCOUNTER 2024-03-06 12:07 | Outpatient (REF) | payer SELFPAY | END 2024-03-06 12:08 | disposition home or self-care (01) | LOC: HO.HAP 12:07 | PROVIDERS: Visit Provider Internal Medicine | DX: Z46.1 Encounter for fitting and adjustment of hearing aid (principal); H90.3 Sensorineural hearing loss, bilateral | CPT/HCPCS: 92593 ==

== ENCOUNTER 2024-05-12 14:14 | Outpatient (AMB) | payer MEDICARE, SELFPAY ==
--- NOTE | 2024-05-12 14:17 | MHC.OFFVIS ---
Intake Visit Reasons: 6M PVR- r/s from 04/07 Intake Note: Patient is present for PVR Follow Up Urology Med: Finasteride Antibiotic Allergy: None Blood Thinner: None Last PVR: 148ml Todays PVR: Last PSA: 09/2023 4.82 Patient states he is no longer taking Tamsulosin states he has been off this medication for a while. Escrow Manager Required: No Accompanied by: Self / Same As Patient Allergies No Known Allergies [No Known Allergies*] Allergy (Verified 05/12/24 14:21) HPI Comments Details: Olvin is a very pleasant male. He is a patient of Dr. Ray. He is seen for the following urologic conditions - elevated PSA - lower urinary tract symptoms PSA 10/02 4.5 11% PVR 30 cc Had used tamsulosin for a month with restriction of flow after hernia repair Continue good benefit from single therapy with finasteride Refill provided Also emergency tamsulosin provided Elevated PSA Here for follow-up evaluation of elevated PSA and lower urinary tract symptoms Current therapy finasteride plus tamsulosin PSA 09/02 9.8, 10/01 5.0 12% Reports prior PSAs in the 3-4 range ALEXANDER 1+, soft nodule right base Initial urinary symptoms, is some degree of incomplete bladder emptying and hesitancy, nocturia 2-3 Repeat PSA in 6 months [facility] Medical History Left inguinal hernia (03/26/23) History of urinary frequency Screening for diabetes mellitus Hyperlipidemia RIZWAN on CPAP IBS (irritable bowel syndrome) Dyslipidemia Surgical History History of colonoscopy Family History Father Mental health disorder Mother No problems noted. Social History Housing: House Alcohol intake: current Patient Tobacco Use Status: Former Tobacco user Tobacco use type: Cigarette Years Smoked: 2 years. Over 60 years ago. e-Cigarette/Vaping Use: Never Used Second Hand Smoke Exposure: No service: No Current occupational status: retired Cognitive needs: No Hearing needs: No Vision needs: No Review of Systems Const Denies chills and Denies fever(s) Card Reports no additional complaints and Denies syncope Resp Denies cough GI Denies abdominal pain and Denies heartburn Reports as per HPI and Denies change in libido Neuro Denies syncope Psych Denies change in libido Endo Denies change in libido Physical Exam Const General: cooperative, healthy appearing, comfortable and no acute distress Orientation/consciousness: patient oriented x3 HEENT Face and sinus: Yes normal facial exam Mouth: moist mucous membranes Neck Neck: Yes normal visual inspection, Yes full ROM and Yes trachea midline Chest Chest palpation & inspection: normal inspection of the chest Resp Effort & Inspection: normal respiratory effort, able to speak in complete sentences and no respiratory distress GI Inspection: Yes normal to inspection Back/Spine/Pelvis Cervical Spine: normal cervical lordosis Thoracic/Lumbar Spine: thoracic and lumbar spine normal to inspection Skin General skin exam: no rashes or lesions noted Neuro General: patient oriented x3, gait normal, tone normal and moves all extremities Extrem General: Yes normal to inspection and Yes capillary refill normal Assessment & Plan Assessment & Plan (1) Elevated PSA: Code(s): R97.20 - Elevated prostate specific antigen [PSA] Category: Medical (2) Nocturia more than twice per night: Code(s): R35.1 - Nocturia Category: Medical (3) Weak urinary stream: Code(s): R39.12 - Poor urinary stream Category: Medical Plan PSA today Six-month follow-up Orders: Orders PSA,Total (Free>4and<10) 6 Months R97.20 - Elevated prostate specific antigen [PSA] AMB Post Void Residual by ultrasound Today R35.1 - Nocturia PSA,Total (Free>4and<10) Today R97.20 - Elevated prostate specific antigen [PSA] Medications: New tamsulosin 0.4 mg PO BEDTIME 30 days 30 caps 1RF N40.1 - Benign prostatic hyperplasia with lower urinary tract symptoms, R35.1 - Nocturia, R97.20 - Elevated prostate specific antigen [PSA] Patient Instructions: Imaging studies, laboratory and physical exam results were discussed and reviewed in detail. No major barriers to patient understanding were identified. An opportunity to ask questions regarding the treatment plan was provided. All questions were answered. The patient expressed understanding and agreement with the above treatment plan. The patient is aware they should contact our office by phone for worsening of their current condition or the appearance of new urologic symptoms. Compliance is encouraged with any medications and followup testing that is ordered. It is a privilege to participate in the urologic care of your patient. If you have any questions or concerns regarding treatment for the above conditions, or other urologic issues, please do not hesitate to contact me. The office telephone contact is [phone]. This note is constructed using voice recognition software. While every effort has been made to ensure accuracy motorboat mechanic errors may have been included. Yours sincerely, Dr Domo Perkins MD, [facility] - Urology Providers of Expert, Compassionate Care for the Genitourinary System Coding Level of Care Code Est Pt Level 4 (71661) Diagnoses Elevated PSA R97.20 Nocturia more than twice per night R35.1 Weak urinary stream R39.12
== END 2024-05-12 14:39 | disposition home or self-care (01) ==
LOC: HO.HUSH 14:14
PROVIDERS: PCP Internal Medicine; Visit Provider Urology
DX: R97.20 Elevated prostate specific antigen [PSA] (principal); R35.1 Nocturia; R39.12 Poor urinary stream
CPT/HCPCS: 99214

== ENCOUNTER → 2024-05-12 14:14 | Outpatient (BNVA) | payer MEDICARE, SELFPAY | PROVIDERS: PCP Internal Medicine; Visit Provider Urology | DX: R97.20 Elevated prostate specific antigen [PSA] (principal); R39.12 Poor urinary stream; R35.1 Nocturia | CPT/HCPCS: 99212 ==

== ENCOUNTER 2024-05-29 15:49 | Outpatient (REF) | payer MEDICARE, SELFPAY | END 2024-05-29 15:50 | disposition home or self-care (01) | LOC: HO.HAP 15:49 | PROVIDERS: Visit Provider Internal Medicine | DX: Z13.89 Encounter for screening for other disorder (principal) ==

== ENCOUNTER 2024-06-02 12:07 | Outpatient (REF) | payer SELFPAY | END 2024-06-02 12:08 | disposition home or self-care (01) | LOC: HO.HAP 12:07 | PROVIDERS: Visit Provider Internal Medicine | DX: Z13.89 Encounter for screening for other disorder (principal) ==

== ENCOUNTER 2024-06-14 09:26 | Outpatient (AMB) | payer SELFPAY ==
[2024-06-14 09:33] VITALS: BP 130/70; PULSE 106; O2SAT 97; BMI 24.7
--- NOTE | 2024-06-14 09:33 | MHC.OFFVIS ---
Vital Signs 06/14/24 09:33 Height 5 ft 10 in Weight 171 lb 15.369 oz BMI 24.7 BP 130/70 Blood Pressure Location Lt brachial Position Sitting Pulse 106 H Pulse Source Pulse Oximeter Pulse Oximetry (%) 97 Oxygen Delivery Method Room Air Intake Visit Reasons: Obstructive sleep apnea Intake Note: pt is here for follow up and states he is using the cpap, no problems Video Game Animator Required: No Allergies No Known Allergies [No Known Allergies*] Allergy (Verified 06/14/24 09:58) Medication List - Last Reconciled 06/14/24 by Shyam Whitehead MD finasteride 5 mg PO DAILY 90 days hydrochlorothiazide 25 mg PO DAILY metronidazole 0.75% appl topical BID PRN simvastatin 20 mg PO DAILY tamsulosin 0.4 mg PO BEDTIME 30 days Do you need a note to return to daycare/school/sports/work: No HPI HPI Obstructive sleep apnea: Details: This 83 years old very pleasant gentleman is a case of obstructive 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 Physically he has been of a thin build. He has used CPAP for more than 10 years, with good effect. He sleeps well at least for 6 hours per night and denies any daytime sleepiness. He has become well used to the CPAP. The only issue he complains of is dryness of the mouth towards the morning hours. The distilled water in the water tank finishes by midnight. He claims that he is keeping the humidity at mid level. [facility] Medical History Left inguinal hernia (03/26/23) History of urinary frequency Screening for diabetes mellitus Hyperlipidemia RIZWAN on CPAP IBS (irritable bowel syndrome) Dyslipidemia Surgical History History of colonoscopy Family History Father Mental health disorder Mother No problems noted. Social History Housing: House Alcohol intake: current Patient Tobacco Use Status: Former Tobacco user Tobacco use type: Cigarette Years Smoked: 2 years. Over 60 years ago. e-Cigarette/Vaping Use: Never Used Second Hand Smoke Exposure: No service: No Current occupational status: retired Cognitive needs: No Hearing needs: No Vision needs: No Review of Systems Const All systems reviewed & are unremarkable except as noted in HPI and below Eyes Reports no additional complaints ENT Reports nasal congestion (Mild intermittent.) Card Denies chest pain, Denies irregular heart rhythm, Denies leg edema and Denies dyspnea Resp Reports no additional complaints, Denies cough, Denies dyspnea and Denies wheezing GI Reports no additional complaints Reports no additional complaints Musc Reports no additional complaints Skin/Breast Reports system reviewed and no additional complaints, except as documented Neuro Reports no additional complaints Psych Reports no additional complaints Aller/Immun Denies wheezing Physical Exam Vital Signs: Last Vital Signs Pulse 106 H 06/14/24 09:33 BP 130/70 06/14/24 09:33 Pulse Ox 97 06/14/24 09:33 Oxygen Delivery Method Room Air 06/14/24 09:33 BMI result Body Mass Index 24.7 Const General: healthy appearing, comfortable, no acute distress, alert and awake Orientation/consciousness: patient oriented x3 HEENT Head: Yes normal to inspection General nose exam: No nasal polyps present and No nasal discharge present Face and sinus: Yes sinuses nontender Mouth: oropharynx normal Teeth and gingiva: other (He has chronic Retroganathia of the lower jaw.) Throat: Yes posterior oropharynx normal Eyes General: appearance normal, both eyes and all related structures Neck Neck: Yes normal visual inspection, Yes no lymphadenopathy, Yes trachea midline and Yes no JVD Thyroid: Thyroid normal Chest Chest palpation & inspection: normal inspection of the chest, normal palpation of entire chest wall and no tenderness Resp Effort & Inspection: normal respiratory effort Auscultation: clear to auscultation bilaterally Percussion: percussion normal Cardio Palpation: normal PMI Rate: regular rate Rhythm: regular rhythm Heart sounds: no gallops and no murmurs Peripheral pulses: Peripheral pulses 2+ throughout GI Palpation (GI): Soft to palpation, nontender, No hepatosplenomegaly present and no masses Auscultation: normal bowel sounds Back/Spine/Pelvis Thoracic/Lumbar Spine: thoracic and lumbar spine normal to inspection Skin General skin exam: no rashes or lesions noted Neuro General: patient oriented x3 and no focal motor deficits Cranial nerves: Yes CN's II-XII intact bilaterally Extrem General: Yes normal to inspection, Yes no clubbing, cyanosis or edema and Yes no calf tenderness Psych Appearance: grossly normal and well kempt Speech and movement: Normal speech and movement present Assessment & Plan Assessment & Plan (1) RIZWAN on CPAP: Comment: RIZWAN, 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 Sleep quality much improved , with use of CPAP . Has problem with the humidification. Code(s): G47.33 - Obstructive sleep apnea (adult) (pediatric); Z99.89 - Dependence on other enabling machines and devices Category: Medical Plan: Advised to keep the humidification level at medium, Make sure to fill the tank for the start of the CPAP. Also advised to keep humidification unit in the bedroom. Coding Level of Care Code Est Pt Level 3 (93483) Diagnoses RIZWAN on CPAP G47.33; Z99.89
--- OUTSIDE RECORDS SUMMARY | 2024-06-20 17:06 | XMS_ITS | Patient Health Record ---
Author Organization [facility] Address [address] [place] [address] Care Team Providers Care Field Operations Coordinator Name Role Phone Clifford Ortega MD Primary Care Provider Akira Bedoya Unavailable [phone] Allergies No Known Allergies Reason For Referral No Information Medications Medication SIG (Take, Route, Fr equency, Duration) Notes Start Date End Date Status Simvastatin 20 MG 1 tablet in the even ing Orally Once a day for 30 day(s) Unknown Finasteride 5 MG 1 tablet Orally Once a day Unknown Immunizations Vaccine Route Administration Date Status Comme nts COVID-19 Pfizer BioNTech Vaccine Unknown 10/27/2021 Administered 1st 08/26/2020 2nd 09/11/2020 3rd 04/16/2021 Social History Tobacco Use: Social History Observation Description Date Details (start date - stop date) Former Smoker NA - 03/05/2018 Tobacco Use/Smoking Question Answer Notes Are you a: former smoker When did you stop smoking? 03/05/2018 Additional Findings: Tobacco Non-User Ex-cigaret te smoker Tobacco use other than smoking: Question Answer Notes Are you an other tobacco user? No Problems Problem Type SNOMED Code ICD Code Onset Dates Problem Status W/U Status Risk Notes Problem Acquired hammer toe of right foot (0500143724523 105) Other hammer toe(s) (acquired), right foot (M20.41) Active confirmed Problem Acquired hammer toe of left foot (6453492422342 103) Other hammer toe(s) (acquired), left foot (M20.42) Active confirmed Vital Signs Blood pressure diastolic 85 mm Hg 03/15/2024 Height 6 ft 0 in in 03/15/2024 Blood pressure systolic 150 mm Hg 03/15/2024 Weight 160 lbs 03/15/2024 BMI 21.7 kg/m2 03/15/2024 Encounters Encounter Location Date Provider Diagnosis [facility] [address] [place] [address] 03/15/2024 Akira Baird 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 ; Pain in right toe(s) M79.674 ; Pain in left toe(s) M79.675 ; Skin disease L98.9 ; Other hammer toe(s) (acquired), left foot M20.42 ; Other hammer toe(s) (acquired), right foot M20.41 and Ingrowing nail L60.0 Assessments Encounter Date Diagnosis (ICD Code) Assessment Notes Treatment Notes Treatment Clinical Notes Section Notes 03/15/2024 Tinea unguium (ICD-10 - B35.1) 03/15/2024 Pain in right toe(s) (ICD-10 - M79.674) 03/15/2024 Pain in left toe(s) (ICD-10 - M79.675) 03/15/2024 Skin disease (ICD-10 - L98.9) 03/15/2024 Other hammer toe(s) (acquired), left foot (ICD-10 - M20.42) 03/15/2024 Other hammer toe(s) (acquired), right foot (ICD-10 - M20.41) 03/15/2024 Ingrowing nail (ICD-10 - L60.0) Plan Of Treatment Pending Test Test Name Order Date [id number]-RTCPNANG OF HEMATOMA/FLUID 022 Insurance Providers Payer Name Payer Address Payer Phone Subscriber Number Group Number Insured Name Patient Relationship to Insured Coverage Start Date Coverage End Date Medicare National [facility] [address] [place] [address] [phone] [id number] Olvin Ocasio Self - patient is the insured [employer] [address] [place] [address] [id number] Olvin Ocasio Self - patient is the insured Medical (General) History Medical History History ICD Code CAD (Cholesterol) High blood pressure Measles Mumps Chicken pox Surgical History Surgery Date(Month/Year) Hernia Repair 10/2022
--- OUTSIDE RECORDS SUMMARY | 2024-06-20 17:06 | XMS_ITS ---
Author Organization [facility] Address [address] [place] [address] Care Team Providers Care Harvest Contractor Name Role Phone Jordan ANGLIN, Clifford Primary Care Provider Akira Bedoya [phone] Allergies No Known Allergies REASON FOR VISIT Painful nail(s) aggrevated by shoes and causing difficulty standing/walking. Medications Medication SIG (Take, Route, Fr equency, Duration) Notes Start Date End Date Status Simvastatin 20 MG 1 tablet in the even ing Orally Once a day for 30 day(s) Unknown Finasteride 5 MG 1 tablet Orally Once a day Unknown Social History Tobacco Use: Social History Observation Description Date Details (start date - stop date) Former Smoker NA - 03/05/2018 Tobacco Use/Smoking Question Answer Notes Are you a: former smoker When did you stop smoking? 03/05/2018 Additional Findings: Tobacco Non-User Ex-cigaret te smoker Tobacco use other than smoking: Question Answer Notes Are you an other tobacco user? No Vital Signs Height 6 ft 0 in in 03/15/2024 Weight 160 lbs 03/15/2024 BMI 21.7 kg/m2 03/15/2024 Blood pressure systolic 150 mm Hg 03/15/20 24 Blood pressure diastolic 85 mm Hg 024 Encounters Encounter Location Date Provider Diagnosis [facility] [address] [place] [address] 03/15/2024 Akira Baird 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 ; [...] nail (ICD-10 - L60.0) Plan Of Treatment Next Appt Details Follow Up: prn, Reason: Procedure Notes * Category Sub-Category Detail Notes Debride Nail 6-10 Nail debridement Nail debridem ent performed extensively to reduce/remove overall nail length and girth, subungual debris, and necrotic tissue, by manual and electrical means with use of a nail nipper and/or dremel, to more viable healthy nail plate or bed tissue 6-10. Silver nitrate used for any petechial bleeding as necessary. Patient chooses, no pharmaceutical tx ([id number]) Progress Notes * Olvin BRIGGS CDOB:1940 (83 yo M)Acc No.[id number]:03/15/2024 Progress Note Patient:?Olvin Briggs C Provider:?Akira Baird DPM :1940???Age:83 Y???Sex:Male Braulio e:03/15/2024 Address:[address] [place] [address], [facility] Pcp:Clifford Ortega MD Subjective: * Chief Complaints: * ??? Painful nail(s) aggrevat ed by shoes and causing difficulty standing/walking. * HPI: ???Painful Nails:?Pt States Last PCP Visit:?Date:?01/10/2024 ???Toe pain:?Nature:?aching, stiffness.?Location:?B/L feet, 2nd toe, 3rd toe, 4th toe.?Onset/Cause:?gradual.?Course:?progressive.?Aggravated by:?standing/walking, shoes.?Treatments:?change in shoes.?Severity/Quality:?mild.?Ingrown toenail:?Nature:?tenderness.?Location:?Great toe, Left foot.?Duration:?several weeks.?Onset/Cause:?shoes.?Course:?worse, intermittent.? * ROS:?General/Constitutional:?Nausea?denies.?Vomiting?denies.?Hunger Thirst?denies.?Loss appetite?denies.?Chills?denies.?Fatigue?denies.?Fever?denies.?Night Sweats?denies.?Unexplained weight loss?denies.?Unexplained weight gain?denies.?HEENTM:?Dentures?denies.?Dizziness?denies.?Glasses/contacts?admits.?Retinopathy?de nies.?Blurred/double vision?denies.?TMJ?denies.?Discharge/drainage?denies.?Implants?denies.?Sore throat?denies.?Dental implants?denies.?Hard of hearing ?admits.?Difficulty chewing/swallowing/speaking?denies.?Nose bleeds?denies.?Sore mouth?denies.?Respiratory:?On Oxygen?denies.?Pneumonia/pleurisy?denies.?Bronchitis?denies.?Emphysema?denies.?C oughing?denies.?Cough blood?denies.?Shortness of breath?denies.?Wheezing?denies.?Cardiovascular:?Pacemaker?denies.?MVP?denies.?WPW?denies.?CHF?denies.?Heart attack?denies.?Septal defect?denies.?Rapid beat?denies.?Chest pain ?denies.?Atrial Fib.?denies.?Murmur/Palpitations?denies.?Gastrointestinal:?Hemorrhoids?denies.?Stomach/Abdominal pain?denies.?Dark blood stool?denies.?Irritable bowel ?admits.?Constipation?denies.?Diarrhea?denies.?Hematology:?Swelling?denies.?Clots?denies.?Varicose Veins?denies.?Bruising?denies.?Bleeding problem?denies.?Genitourinary:?Blood urine?denies.?Frequent/Painfu/urination/bladder control?denies.?Kidney stones?denies.?Infection (UTI)?denies.?Nephropathy?denies.?sex trans dis (STD)?denies.?Prostate?denies.?Musculoskeletal:?Hammertoes?denies.?Bunions?denies.?Back Pain?denies.?Muscle Cramps/ Resting?denies.?Muscle cramps / walking?denies.?Generalized aches and pains?denies.?Weakness?denies.?Integ.:?Membreno?denies.?Scars?denies.?Corns/calluses?denies.?Ingrown nails?admits.?Painful nails?admits.?Open Sores?denies.?Rashes?denies.?Neurologic:?Difficulty sleeping?denies.?Brain disorder?denies.?Numbness?denies.?Balance trouble?denies.?Confusion?denies.?Fainting/blackouts?denies.?Tingling?denies.?Tr emors?denies.? * Medical History:? * Surgical History:?Hernia Rep air 10/2022 * Hospitalization/Major Diagno stic Procedure:?Denies Past Hospitalization * Family History:?Mother: dece ased, diagnosed with Other malignant neoplasm of unspecified site.?Father: .? * Social History:?Tobacco Use:?Tobacco Use/Smoking?Are you a:?former smoker ?When did you stop smoking??03/05/2018 ?Additional Findings: Tobacco Non-User?Ex-cigarette smoker ?Tobacco use other than smoking?Are you an other tobacco user??No ???Miscellaneous:?Caffeine: yes, 2 cups per day. ?no Children, none. ?Exercise: yes, occasional, exercise, walking, stationary exercise. ?Marital status: . 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 * Medications:?UnknownFinaster cony 5 MG Tablet 1 tablet Orally Once a daySimvastatin 20 MG Tablet 1 tablet in the evening Orally Once a dayMedication List reviewed and reconciled with the patientUnknown Finasteride 5 MG Tablet 1 tablet Orally Once a dayUnknown Simvastatin 20 MG Tablet 1 tablet in the evening Orally Once a dayMedication List reviewed and reconciled with the patient * Allergies:?N.K.D.A.yes[Aller gies Verified] Objective: * Vitals:?Ht: 6 ft 0 in, Wt: 1 60, BMI: 21.7, Shoe size: 13, BP: 150/85 mm Hg, Wt- k.57 kg. * Examination: ???Nails: ?NAILS are:?Elongated, overgrown, dystrophic, lytic, greater than 3mm thick, discolored and friable with crumbly malodorous subungual debris, with pain on palpation, T1, T2, T4, T5, T6, T8, T9.?General Examination: ?GENERAL APPEARANCE:?pleasant, alert, well nourished, well developed, well hydrated, with good attention to hygene/body habitus, and in no acute distress.?ORIENTED:?person,place, and time.?Neurological: ?SENSORY:?neurological exam reveals intact sensorium, pain sensation normal, vibration sensation intact, pinprick sensation is normal in the lower extremities, anesthesia, burning, tingling, B/L.?Vascular: ?DP PULSES:? 07/15, B/L.?PT PULSES:? 07/15, B/L.?CAPILLARY FILL TIME:?3 secs. per digit. B/L.?SKIN TEMPERTURE GRADIENT OF THE LOWER EXTERMITIES:?normal, B/L.?HAIR GROWTH/TEXTURE/ELASTICITY/TURGOR:?normal, B/L.?PIGMENTATION:?normal, B/L.?EDEMA:?absent, B/L.?TELANGECTASIA:?absent, B/L.?Dermatologic: ?SKIN FINDINGS:?Skin exam reveals normal texture, elasticity, and tugor. There are no masses. The interspaces are clear.?Orthopedic: ?MUSCLE STRENGTH:?5/5 all groups in a symmetrical fashion , B/L.?FOOT MORPHOLOGY:? Pes Planus structure, B/L.?DIGITAL DEFORMITIES:? Digital contracture, PIPJ, 2-5 B/L, incompl- reducable with WB, or to push-up test, no over, nor underlapping.?Ingrown Nail: ?INSPECTION:? Reveals nail incurvation, pain on palpation, groove hypertrophy, groove ischemia, Lateral nail border, T5, TA.? Assessment: * Assessment: 1.?Tinea unguium - B35.1 (Pr imary)?2.?Pain in right toe(s) - M79.674?3.?Pain in left toe(s) - M79.675?4.?Skin disease - L98.9?5.?Other hammer toe(s) (acquired), left foot - M20.42?6.?Other hammer toe(s) (acquired), right foot - M20.41?7. Ingrowing nail - L60.0? Plan: * Treatment: * Procedures:?Debride Nail 6-10:?Nail debridement?Nail debridement performed extensively to reduce/remove overall nail length and girth, subungual debris, and necrotic tissue, by manual and electrical means with use of a nail nipper and/or dremel, to more viable healthy nail plate or bed tissue 6-10. Silver nitrate used for any petechial bleeding as necessary. Patient chooses, no pharmaceutical tx ([id number]).? * Procedure Codes:?15906 DEBRI DE NAIL, 6 OR MORE, Modifiers: XS * Preventive Medicine:? ??Counseling:?Discussion:?-13: Office or other outpatient visit for the evaluation and management of an established patient, which required a medically appropriate history and/or examination and LOW level of DECISION MAKING for: 1 STABLE ACUTE UNCOMPLICATED PROBLEM, 2 OR MORE MINOR PROBLEMS, OR 1 STABLE CHRONIC PROBLEM, THAT POSE(S) A LOW RISK FOR MORBIDITY/MORTALITY. The visit on the day of the encounter encompassed interpreting the data and educating the patient as to the nature of their condition, treatment options available according to their individual PMH, meds, allergies, and overall health/living conditions, as well as any potential risks or complications that may occur from a failure to adhere to, and participate in, the recommended course of therapy. The discussion included a complete verbal, and/or written explanation of the examination results, any x-rays taken, the proposed diagnosis, and outline of the treatment plan. A schedule for future care needs was also explained. The patient verbalized an understanding of the instructions at this time and agreed to be an active participant in their treatment. If the patient should think of any questions or concerns after the visit, I have encouraged the patient to call the office--pt to call for na prn pain.? * Follow Up:?prn * Images: * Sign off status: Completed true * Provider:Trixie Baird DPM Date:? 024 Generated for Trinity wallis/Isabel/eTransmitting on:?06/20/2024 05:06 PM EST History and Physical Notes * HPI (History of Present Illness) Category Sub-Category Detail Notes Category Not es Toe pain Nature: aching, stiffness Location: B/L feet, 2nd toe, 3 rd toe, 4th toe Onset/Cause: gradual Course: progressive Aggravated by: standing/walking, sh oes Treatments: change in shoes Severity/Quality: mild Ingrown toenail Duration: several weeks Nature: tenderness Location: Great toe, Left foot Onset/Cause: shoes Course: worse, intermittent Painful Nails Pt States Last PCP Visit: Date:: 01/10/2024 Examination Category Sub-Category Detail Notes Category Not es Ingrown Nail INSPECTION: Reveals nail inc urvation, pain on palpation, groove hypertrophy, groove ischemia, Lateral nail border, T5, TA Neurological SENSORY: neurological exa m reveals intact sensorium, pain sensation normal, vibration sensation intact, pinprick sensation is normal in the lower extremities, anesthesia, burning, tingling, B/L Dermatologic SKIN FINDINGS: Skin exam reveal s normal texture, elasticity, and tugor. There are no masses. The interspaces are clear Orthopedic FOOT MORPHOLOGY: Pes Planus structure, B/ L DIGITAL DEFORMITIES: Digital contracture , PIPJ, 2-5 B/L, incompl-reducable with WB, or to push-up test, no over, nor underlapping MUSCLE STRENGTH: 5/5 all groups in a symmetrical fashion , B/L General Examination GENERAL APPEARANCE: pleasant , alert, well nourished, well developed, well hydrated, with good attention to hygene/body habitus, and in no acute distress ORIENTED: person,place, and ti me Vascular DP PULSES(B): 1/4, B/L PT PULSES(B): 1/4, B/L CAPILLARY FILL TIME: 3 secs. per digit. B/L TEMPERTURE GRADIENT(C): normal, B/L TROPHIC CONDITION-TEXTURE/ELASTICITY/TUR GOR/HAIR GROWTH(B): normal, B/L EDEMA(C): absent, B/L TELANGECTASIA: absent, B/L PIGMENTATION: normal, B/L Nails NAILS are: Elongated, overg rown, dystrophic, lytic, greater than 3mm thick, discolored and friable with crumbly malodorous subungual debris, with pain on palpation, T1, T2, T4, T5, T6, T8, T9
--- OUTSIDE RECORDS SUMMARY | 2024-06-20 17:06 | XMS_ITS | Patient Health Record ---
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) Active confirmed [id number] Problem Change in bowel habits (R19.4) Active confirmed [id number] Problem Change in bowel function (R19.4) Active confirmed Altered bow el function ([id number]) PLAN OF TREATMENT Future Test Test Name Order Date COLONOSCOPY 03/09/2019 Insurance Providers Payer Name Payer Address Payer Phone Subscriber Number Group Number Insured Name Patient Relationship to Insured Coverage Start Date Coverage End Date MEDICARE OF [place] [address] [place] [address] [phone] [id number] DENISHA BRIGGS Self - patient is the insured MED[employer] ATT[employer] CLAIMS [address] [place] [address] [id number] DENISHA BRIGGS Self - patient is the insured MEDICAL (GENERAL) HISTORY Medical History History ICD Code Denies OR,DM,CVA,Lung disease,renal dise ase Neg. colonoscopy in [address] Escudero and neg limited colonoscopy/CT colonography with Dr. 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 celiac di sease labs in 2019 Surgical History Surgery Date(Month/Year)
== END 2024-06-14 10:44 | disposition home or self-care (01) ==
PROVIDERS: PCP Internal Medicine; Visit Provider Internal Medicine
DX: G47.33 Obstructive sleep apnea (adult) (pediatric) (principal); Z99.89 Dependence on other enabling machines and devices
CPT/HCPCS: 99213

== ENCOUNTER → 2024-06-14 09:26 | Outpatient (BNVA) | payer MEDICARE, SELFPAY | PROVIDERS: PCP Internal Medicine; Visit Provider Internal Medicine | DX: G47.33 Obstructive sleep apnea (adult) (pediatric) (principal); Z99.89 Dependence on other enabling machines and devices | CPT/HCPCS: 99212 ==

== ENCOUNTER 2024-08-23 11:23 | Outpatient (AMB) | payer MEDICARE, SELFPAY ==
[2024-08-23 11:28] VITALS: BP 140/78; PULSE 78; O2SAT 99; BMI 24.7
--- NOTE | 2024-08-23 11:28 | MHC.PC.OV ---
Vital Signs 08/23/24 11:28 Height 5 ft 10 in Weight 172 lb BMI 24.7 BP 140/78 H Blood Pressure Location Lt brachial Position Sitting Pulse 78 Pulse Source Pulse Oximeter Pulse Oximetry (%) 99 Oxygen Delivery Method Room Air Intake Visit Reasons: 6mth f/u Intake Note: Patient here for a 6 month follow up Freight Engineer Required: No Accompanied by: Self / Same As Patient Allergies No Known Allergies [No Known Allergies*] Allergy (Verified 08/23/24 11:31) Medication List - Last Reconciled 08/24/24 by Clifford Ortega MD finasteride 5 mg PO DAILY 90 days hydrochlorothiazide 25 mg PO DAILY metronidazole 0.75% appl topical BID PRN simvastatin 20 mg PO DAILY tamsulosin 0.4 mg PO BEDTIME 30 days Tobacco use date assessed: 08/23/24 Fall risk assessment: No Falls in past year Last assessed Fall Risk: 08/23/24 Dental Screening Dental Screen Date: 08/23/24 Did you have a dental visit in the last 12 months?: Yes Did you have a dental problem in the last 6 months where you did not have access to dental care?: No Was dental information given to patient?: Patient has dentist HPI 6mth f/u HPI Details hypertension and hyperlipidemia on rx; compliant [facility] Medical History Left inguinal hernia (03/26/23) History of urinary frequency Screening for diabetes mellitus Hyperlipidemia RIZWAN on CPAP IBS (irritable bowel syndrome) Dyslipidemia Surgical History History of colonoscopy Family History Father Mental health disorder Mother No problems noted. Social History Housing: House Alcohol intake: current Patient Tobacco Use Status: Former Tobacco user Tobacco use type: Cigarette Years Smoked: 2 years. Over 60 years ago. e-Cigarette/Vaping Use: Never Used Second Hand Smoke Exposure: No service: No Current occupational status: retired Cognitive needs: No Hearing needs: No Vision needs: No Questionnaire PHQ-9 Over the last 2 weeks, how often have you been bothered by any of the following problems? 1. Little interest or pleasure in doing things: not at all 2. Feeling down, depressed, or hopeless: not at all 3. Trouble falling or staying asleep, or sleeping too much: not at all 4. Feeling tired or having little energy: not at all 5. Poor appetite or overeating: not at all 6. Feeling bad about yourself - or that you are a failure or have let yourself or your family down: not at all 7. Trouble concentrating on things, such as reading the newspaper or watching television: not at all 8. Moving or speaking so slowly that other people could have noticed. Or the opposite - being so fidgety or restless that you have been moving around a lot more than usual: not at all 9. Thoughts that you would be better off or of hurting yourself in some way: not at all Total score: 0 Depression Screening Interpretation: Negative Depression Screening Done: Yes Source: Developed by Drs. Geronimo Garcia, Cortney Mathis, Santana Jaime and colleagues, with an educational germain from [employer] Thrive Questionnaire Date Thrive assessed: 08/23/24 I am a: Patient What is your living situation today?: I have a steady place to live Within the past 12 months, did the food you bought not last and you didn't have the money to get more?: Never true Within the past 12 months, did you worry whether your food would run out before you got money to buy more?: Never true Do you have trouble paying for medicines?: No Do you have trouble getting transportation to medical appointments?: No Do you have trouble paying your heating and electricity bill?: No Do you have trouble taking care of your child, family member or friend?: No Do you have trouble with day-to-day activities such as bathing, preparing meals, shopping, managing finances, etc.?: No Are you currently unemployed and looking for a job?: No Are you interested in more education?: No Please select the resources that you would like help with: None Currently or been in a relationship where the following occur: No concerns reported THRIVE Score: 0 AUDIT C Alcohol Use Questionnaire (AUDIT-C) 1. How often do you have a drink containing alcohol?: Never Total Score: 0 GUERRERO-7 AMB Questionnaire GUERRERO-7 Date GUERRERO - 7 assessed: 08/23/24 Feeling nervous, anxious, or on edge: 0 = Not at all Not being able to stop or control worryin = Not at all Worrying too much about different things: 0 = Not at all Trouble relaxin = Not at all Being so restless that it is hard to sit still: 0 = Not at all Becoming easily annoyed or irritable: 0 = Not at all Feeling afraid as if something awful might happen: 0 = Not at all Total GUERRERO-7 score (0-4 normal; 5-9 mild; 10-14 moderate; 15-21 severe): 0 Source: Developed by Drs. Geronimo Garcia, Cortney Mathis, Santana Jaime and colleagues, with an educational germain from [employer] Review of Systems Const Denies chills, Denies headache(s) and Denies weight loss ENT Denies headache(s) Card Denies chest pain, Denies syncope, Denies irregular heart rhythm and Denies dyspnea Resp Denies chest congestion, Denies cough and Denies dyspnea GI Denies abdominal pain, Denies change in stool character, Denies nausea and Denies vomiting Musc Denies deformity and Denies joint swelling Neuro Denies syncope and Denies headache(s) Physical exam (Primary Care) Vital Signs: Last Vital Signs Pulse 78 08/23/24 11:28 BP 140/78 H 08/23/24 11:28 Pulse Ox 99 08/23/24 11:28 Oxygen Delivery Method Room Air 08/23/24 11:28 BMI result Body Mass Index 24.7 Tobacco/Smoking Status: Tobacco use Status Tobacco use date assessed 08/23/24 08/23/24 11:32 Patient Tobacco Use Status Former Tobacco user 08/23/24 11:32 Tobacco use type Cigarette 08/23/24 11:32 e-Cigarette/Vaping Use Never Used 08/23/24 11:32 PHQ-9: PHQ-9 Score PHQ-9: Total score 0 08/23/24 11:32 Depression Screening Interpretation: Negative Thrive Assessment: Date of Thrive Assessment Date Thrive assessed 08/23/24 08/23/24 11:32 Currently or been in a relationship where the following occur: No concerns reported Const General: cooperative, comfortable, no acute distress and alert Neck Neck: Yes no lymphadenopathy Thyroid: Thyroid normal Resp Effort & Inspection: normal respiratory effort Auscultation: clear to auscultation bilaterally Percussion: percussion normal Cardio Jugular venous distension: no JVD Palpation: normal PMI Rate: regular rate Rhythm: regular rhythm Heart sounds: S1 normal heart sound present and S2 normal heart sound present GI Inspection: Yes normal to inspection Palpation (GI): No hepatosplenomegaly present Skin General skin exam: no rashes or lesions noted Extrem General: Yes no clubbing, cyanosis or edema Coding Level of Care Code Est Pt Level 3 (09329) Diagnoses Hypertension I10 Hyperlipidemia E78.5 Assessment & Plan Assessment & Plan (1) Hypertension: Code(s): I10 - Essential (primary) hypertension Category: Medical Plan: stable; same rx (2) Hyperlipidemia: Code(s): E78.5 - Hyperlipidemia, unspecified Category: Medical Plan: stable; same rx
--- OUTSIDE RECORDS SUMMARY | 2024-08-23 13:18 | XMS_ITS | Clinical Summary ---
Author Organization [facility] Address [address] [place] [address] Care Team Providers Care Nonfarm Animal Caretaker Name Role Phone Unavailable Primary Care Provider Unavailabl e Immunizations Name Administration Dates Next Due Influenza, seasonal, injectable, preservative fr ee 04/04/2024 Pfizer Covid-19 Vaccine 12+ 03/29/2024 Social History Tobacco Use Types Packs/Day Years Used Date Smoking Tobacco: Never Assessed Sex and Gender Information Value Date Recorded Sex Assigned at Male 03/30/2024 2:51 PM EDT Legal Sex Male 2:48 PM EDT Gender Identity Male 03/30/2024 2:51 PM EDT Sexual Orientation Straight 03/30/2024 2: 51 PM EDT Plan of Treatment Health Maintenance Due Date Last Done Comments Depression Screening 1940 Lipid Panel 1940 SDOH Screening 1940 Alcohol/Substance Use Screening 1952 Tobacco Screening 1952 DTaP/Tdap/Td Vaccines (1 - Tdap) 12/07/1959 Pneumococcal Vaccine: 50+ Ye ars (1 of 1 - PCV) 1990 Zoster Vaccines (1 of 2) 1990 RSV Patients and Pa tients Aged 60 years or older (1 - 1-dose 75+ series) 12/07/2015 COVID-19 Vaccine Completed 03/29/2024 Influenza Vaccine Completed 04/04/2024 HIB Vaccines Aged Out No longer eligi ble based on patient's age to complete this topic HPV Vaccines Aged Out No longer eligi ble based on patient's age to complete this topic Hepatitis A Vaccines Aged Out No long er eligible based on patient's age to complete this topic Hepatitis B Vaccines Aged Out No long er eligible based on patient's age to complete this topic IPV Vaccines Aged Out No longer eligi ble based on patient's age to complete this topic Meningococcal Vaccine Aged Out No mason chel eligible based on patient's age to complete this topic RSV under 20 months Aged Out No longe r eligible based on patient's age to complete this topic Rotavirus Vaccines Aged Out No longer eligible based on patient's age to complete this topic Insurance [facility]IC[facility] MEDEX CARE
--- OUTSIDE RECORDS SUMMARY | 2024-08-23 13:18 | XMS_ITS | Patient Health Record ---
Author Organization [facility] Address [address] [place] [address] Care Team Providers Care Strip Picker Name Role Phone Clifford Ortega MD Primary Care Provider Akira Bedoya Unavailable [phone] Allergies No Known Allergies Reason For Referral [...] Problem Acquired hammer toe of right foot ([id number] 105) Other hammer toe(s) (acquired), right foot (M20.41) Active confirmed Problem Acquired hammer toe of left foot (4691459378562 103) Other hammer toe(s) (acquired), left foot (M20.42) Active confirmed Vital Signs Blood pressure diastolic 85 mm Hg 03/15/2024 Height 6 ft 0 in in 03/15/2024 Blood pressure systolic 150 mm Hg 03/15/2024 Weight 160 lbs 03/15/2024 BMI 21.7 kg/m2 03/15/2024 Encounters Encounter Location Date Provider Diagnosis [facility] [place] [address] [place] [address] 03/15/2024 Akira Baird 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 ; [...] Treatment Pending Test Test Name Order Date 89609-[id number] OF HEMATOMA/FLUID 022 Insurance Providers Payer Name Payer Address Payer Phone Subscriber Number Group Number Insured Name Patient Relationship to Insured Coverage Start Date Coverage End Date Medicare National [facility] [address] [place] [address] [phone] [id number] Olvin Ocasio Self - patient is the insured [employer] Blue Shield [address] [place] [address] [id number] Olvin Ocasio Self - patient is the insured Medical (General) History Medical History History ICD Code CAD (Cholesterol) High blood pressure Measles Mumps Chicken pox Surgical History Surgery Date(Month/Year) Hernia Repair 10/2022
--- OUTSIDE RECORDS SUMMARY | 2024-08-23 13:18 | XMS_ITS | Patient Health Record ---
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) Active confirmed 14964181 Problem Change in bowel habits (R19.4) Active confirmed 036829335 Problem Change in bowel function (R19.4) Active confirmed Altered bow el function (51245418) PLAN OF TREATMENT Future Test Test Name Order Date COLONOSCOPY 03/09/2019 Insurance Providers Payer Name Payer Address Payer Phone Subscriber Number Group Number Insured Name Patient Relationship to Insured Coverage Start Date Coverage End Date MEDICARE OF [place] [address] [facility] [place] [address] [id number] DENISHA BRIGGS Self - patient is the insured MEDEX ATTN CLAIMS [address] [place] [address] [id number] DENISHA BRIGGS Self - patient is the [...]
--- OUTSIDE RECORDS SUMMARY | 2024-08-23 13:18 | XMS_ITS ---
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 Patient chooses, no pharmaceutical tx (98244) Progress Notes * Olvin BRIGGS CDOB:1940 (83 yo M)Acc No.[id number]:03/15/2024 Progress Note Patient:?Olvin Briggs C Provider:?Akira Baird DPM :1940???Age:83 Y???Sex:Male Braulio e:03/15/2024 Address:[address] [place] [address], [facility] Pcp:Clifford Ortega MD Subjective: * Chief Complaints: [...] walking, stationary exercise. ?Marital status: . 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 * Medications:?UnknownFinaster cony 5 [...] as necessary. Patient chooses, no pharmaceutical tx (39885).? * Procedure Codes:?66396 DEBRI DE NAIL, 6 OR MORE, Modifiers: [...] DPM Date:? 024 Generated for Trinity wallis/Isabel/eTransmitting on:?08/23/2024 01:18 PM EST History and Physical Notes * [...] ORIENTED: person,place, and ti me Vascular DP PULSES (B): 1/4, B/L PT PULSES (B): 1/4, B/L CAPILLARY FILL TIME: 3 secs. per digit. B/L TEMPERTURE GRADIENT (C): normal, B/L TROPHIC CONDITION-TEXTURE/ELASTICITY/TUR GOR/HAIR GROWTH (B): normal, B/L EDEMA (C): absent, B/L TELANGECTASIA: absent, B/L PIGMENTATION: normal, B/L Nails NAILS are: Elongated, overg rown, dystrophic, lytic, greater than 3mm thick, discolored and friable with crumbly malodorous subungual debris, with pain on palpation, T1, T2, T4, T5, T6, T8, T9
== END 2024-08-23 12:01 | disposition home or self-care (01) ==
PROVIDERS: PCP Internal Medicine; Visit Provider Internal Medicine
DX: I10 Essential (primary) hypertension (principal); E78.5 Hyperlipidemia, unspecified

== ENCOUNTER → 2024-08-23 11:23 | Outpatient (BNVA) | payer MEDICARE, SELFPAY | PROVIDERS: PCP Internal Medicine; Visit Provider Internal Medicine | DX: I10 Essential (primary) hypertension (principal); E78.5 Hyperlipidemia, unspecified | CPT/HCPCS: 99212 ==

== ENCOUNTER 2024-09-06 14:58 | Outpatient (REF) | payer SELFPAY ==
--- OUTSIDE RECORDS SUMMARY | 2024-09-06 18:25 | XMS_ITS | Patient Health Record ---
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 [address] [id number] DENISHA BRIGGS Self - patient is the insured MEDEX ATTN CLAIMS [address] [place] [address] [id number] DENISHA BRIGGS Self - patient is the insured MEDICAL (GENERAL) HISTORY Medical History History ICD Code Denies ND,DM,CVA,Lung disease,renal dise ase Neg. colonoscopy in [address] Escudero and neg limited colonoscopy/CT colonography with Dr. 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 celiac di sease labs in 2019 Surgical History Surgery Date(Month/Year)
--- OUTSIDE RECORDS SUMMARY | 2024-09-06 18:25 | XMS_ITS | Clinical Summary ---
Author Organization [employer] Address [address] [facility] [address] [place] [address] Care Team Providers Care Dry House Worker Name Role Phone Unavailable Primary Care Provider [...] age to complete this topic Insurance MEDICARE [facility] MEDEX CARE
--- OUTSIDE RECORDS SUMMARY | 2024-09-06 18:25 | XMS_ITS | Patient Health Record ---
Author Organization [facility] R[facility] Address [address] [place] [address] Care Team Providers Care Hangar Attendant Name Role Phone Clifford Ortega MD Primary Care Provider Akira Bedoya Unavailable [phone] Allergies No Known Allergies Reason For Referral [...] Problem Acquired hammer toe of right foot (4358970728406 105) Other hammer toe(s) (acquired), right foot (M20.41) Active confirmed Problem Acquired hammer toe of left foot (9993292120297 103) Other hammer toe(s) (acquired), left foot (M20.42) Active confirmed Vital Signs Blood pressure diastolic 85 mm Hg 03/15/2024 Height 6 ft 0 in in 03/15/2024 Blood pressure systolic 150 mm Hg 03/15/2024 Weight 160 lbs 03/15/2024 BMI 21.7 kg/m2 03/15/2024 Encounters Encounter Location Date Provider Diagnosis [facility] [place] [address] [place] [address] 03/15/2024 Akira Baird 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 ; [...] Treatment Pending Test Test Name Order Date 67394-SQRYPPOR OF HEMATOMA/FLUID 022 Insurance Providers Payer Name Payer Address Payer Phone Subscriber Number Group Number Insured Name Patient Relationship to Insured Coverage Start Date Coverage End Date Medicare National [facility] [address] [place] [address] [id number] Olvin Ocasio Self - patient is the insured [employer] Blue Shield [address] [place] [address] [phone] [id number] Olvin Ocasio Self - patient is the insured Medical (General) History Medical History History ICD Code CAD (Cholesterol) High blood pressure Measles Mumps Chicken pox Surgical History Surgery Date(Month/Year) Hernia Repair 10/2022
--- OUTSIDE RECORDS SUMMARY | 2024-09-06 18:25 | XMS_ITS ---
Author Organization [facility] Address [address] [place] [address] Care Team Providers Care Electrical Controls Technician Name Role Phone Clifford Ortega MD Primary Care Provider Akira Bedoya [phone] Allergies No Known Allergies REASON FOR VISIT [...] an other tobacco user? No Vital Signs Blood pressure systolic 150 mm Hg 03/15/20 24 Blood pressure diastolic 85 mm Hg 024 Height 6 ft 0 in in 03/15/2024 Weight 160 lbs 03/15/2024 BMI 21.7 kg/m2 03/15/2024 Encounters Encounter Location Date Provider Diagnosis [facility] [address] [place] [address] 03/15/2024 Akira Baird 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 ; [...] as necessary. Patient chooses, no pharmaceutical tx (72575) Progress Notes * Olvin BRIGGS CDOB:1940 (83 yo M)Acc No.[id number]:03/15/2024 Progress Note Patient:?Olvin Briggs C Provider:?Akira Baird DPM :1940???Age:83 Y???Sex:Male Braulio e:03/15/2024 Address:[address] [place] [address], [facility] Pcp:Clifford Ortega MD Subjective: * Chief Complaints: [...] walking, stationary exercise. ?Marital status: . 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 * Medications:?UnknownFinaster cony 5 [...] as necessary. Patient chooses, no pharmaceutical tx (56356).? * Procedure Codes:?80264 DEBRI DE NAIL, 6 OR MORE, Modifiers: [...] DPM Date:? 024 Generated for Trinity wallis/Isabel/eTransmitting on:?09/06/2024 06:24 PM EST History and Physical Notes * [...]
== END 2024-09-06 14:59 | disposition home or self-care (01) ==
LOC: HO.SH 14:58
PROVIDERS: Visit Provider Internal Medicine
DX: Z01.118 Encounter for examination of ears and hearing with other abnormal findings (principal); H61.23 Impacted cerumen, bilateral
CPT/HCPCS: V5267

== ENCOUNTER 2024-10-02 11:56 | Outpatient (REF) | payer SELFPAY | END 2024-10-02 11:57 | disposition home or self-care (01) | LOC: HO.HAP 11:56 | PROVIDERS: Visit Provider Internal Medicine | DX: Z13.89 Encounter for screening for other disorder (principal) ==

== ENCOUNTER 2024-10-23 10:56 | Outpatient (REF) | payer BC, SELFPAY ==
--- OUTSIDE RECORDS SUMMARY | 2024-10-23 12:56 | XMS_ITS | Patient Health Record ---
Author [facility] Address [address] [place] [address] Care Team Providers Care Workers' Compensation Magistrate Name Role Phone Clifford Ortega MD Primary Care Provider Akira Bedoya Unavailable [phone] Allergies No Known Allergies Reason For Referral [...] Problem Acquired hammer toe of right foot (7380752908580 105) Other hammer toe(s) (acquired), right foot (M20.41) Active confirmed Problem Acquired hammer toe of left foot (8801794341067 103) Other hammer toe(s) (acquired), left foot (M20.42) Active confirmed Vital Signs Blood pressure diastolic 85 mm Hg 03/15/2024 Height 6 ft 0 in in 03/15/2024 Blood pressure systolic 150 mm Hg 03/15/2024 Weight 160 lbs 03/15/2024 BMI 21.7 kg/m2 03/15/2024 Encounters Encounter Location Date Provider Diagnosis [facility] [place] [address] [place] [address] 03/15/2024 Akira Baird 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 ; [...] Treatment Pending Test Test Name Order Date 13573-[id number] OF HEMATOMA/FLUID 022 Insurance Providers Payer Name Payer Address Payer Phone Subscriber Number Group Number Insured Name Patient Relationship to Insured Coverage Start Date Coverage End Date Medicare National [facility] [address] [place] [address] [id number] Olvin Ocasio Self - patient is the insured [employer] Blue Shield [address] [place] [address] [id number] Olvin Ocasio Self - patient is the insured Medical (General) History Medical History History ICD Code CAD (Cholesterol) High blood pressure Measles Mumps Chicken pox Surgical History Surgery Date(Month/Year) Hernia Repair 10/2022
--- OUTSIDE RECORDS SUMMARY | 2024-10-23 12:56 | XMS_ITS | Patient Health Record ---
Author Organization [facility] Address [address] [place] [address] Care Team Providers Care Senior Merchandiser Name Role Phone Clifford Ortega MD Primary Care Provider Unavaila Geronimo Jaeger Unavailable [phone] Reason For Referral No Information Medications Medication SIG (Take, Route, Fr equency, Duration) Notes Start Date End Date Status Simvastatin 20 MG 1 tablet in the even ing Orally Once a day for 30 day(s) Active Immunizations Vaccine Route Administration Date Status Comme nts Influenza Unknown 05/12/2018 Administered Influenza Unknown 04/18/2019 Administered Influenza Unknown 04/24/2020 Administered Social History Tobacco Use: Social History Observation Description Date Details (start date - stop date) Former Smoker NA - NA Tobacco Use/Smoking Question Answer Notes Patient is a former smoker How long has it been since you last smoked? > 10 years Alcohol Screen Question Answer Notes Did you have a drink containing alcohol in the p ast year? 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) Active confirmed Problem 92242156 Hypertension, unspecified type (I10) Active confirmed Plan Of Treatment Future Test Test Name Order Date COLONOSCOPY 03/09/2019 Insurance Providers Payer Name Payer Address Payer Phone Subscriber Number Group Number Insured Name Patient Relationship to Insured Coverage Start Date Coverage End Date MEDICARE OF [place] [address] [place] [address] [id number] DENISHA BRIGGS Self - patient is the insured MEDEX ATTN CLAIMS [address] [place] [address] [id number] DENISHA BRIGGS Self - patient is the insured Medical (General) History Medical History History ICD Code Denies ID,DM,CVA,Lung disease,renal dise ase Neg. colonoscopy in [address] Escudero and neg limited colonoscopy/CT colonography with Dr. 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 celiac di sease labs in 2019 Surgical History Surgery Date(Month/Year)
--- OUTSIDE RECORDS SUMMARY | 2024-10-23 12:56 | XMS_ITS ---
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 Patient chooses, no pharmaceutical tx (82965) Progress Notes * Olvin BRIGGS CDOB:1940 (83 yo M)Acc No.[id number]:03/15/2024 Progress Note Patient:?Olvin Briggs C Provider:?Akira Baird DPM :1940???Age:83 Y???Sex:Male Braulio e:03/15/2024 Address:[address] [place] [address], [facility] Pcp:Clifford Ortega MD Subjective: * Chief Complaints: [...] walking, stationary exercise. ?Marital status: . 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 * Medications:?UnknownFinaster cony 5 [...] as necessary. Patient chooses, no pharmaceutical tx (24834).? * Procedure Codes:?29769 DEBRI DE NAIL, 6 OR MORE, Modifiers: [...] DPM Date:? 024 Generated for Trinity wallis/Isabel/eTransmitting on:?10/23/2024 12:56 PM EDT History and Physical Notes * HPI (History [...]
--- OUTSIDE RECORDS SUMMARY | 2024-10-23 12:56 | XMS_ITS | Clinical Summary ---
Author Organization [employer] Address [address] [place] [address] [place] [address] Care Team Providers Care Fruit Or Nut Farm Worker Name Role Phone Unavailable Primary Care Provider Unavailabl e Encounters Date Type Department Care Team Description 10/03/2024 2:45 PM EDT Immunization [facility] [address] [place] [address] Encounter for immunization from Last 3 Months Immunizations Name Administration Dates Next Due Influenza, seasonal, injectable, preservative fr ee 04/04/2024 Pfizer Covid-19 Vaccine 12+ 10/03/2024, Social History Tobacco Use Types Packs/Day Years [...] 1952 DTaP/Tdap/Td Vaccines (1 - Tdap) 12/07/1959 Zoster Vaccines (1 of 2) 1990 RSV Patients and Patients Aged 60 years or older (1 - 1-dose 75+ series) 12/07/2015 Pneumococcal Vaccine: 50+ Years Completed 05/06/2018, 10/21/2016 Influenza Vaccine Completed 04/04/2024, , 04/20/2022, Additional history exists COVID-19 Vaccine Completed 10/03/2024, , 05/12/2023, Additional history exists HIB Vaccines Aged Out No longer eligi [...] age to complete this topic Insurance MEDICARE [facility] MEDEX CARE
[2024-10-24 12:04] LABS: Free Prostate Spec Ag 0.7 ng/mL; Percent Free Prostate Spec Ag 13 % (calc) (>25); Prostate Specific Ag Total 5.6 ng/mL (< OR = 4.0)
== END 2024-10-23 10:57 | disposition home or self-care (01) ==
LOC: HO.LAB 10:56
PROVIDERS: PCP Internal Medicine; Visit Provider Urology
DX: R97.20 Elevated prostate specific antigen [PSA] (principal); Z12.5 Encounter for screening for malignant neoplasm of prostate
CPT/HCPCS: 36415; 84153; 84154

== ENCOUNTER 2024-10-23 11:26 | Outpatient (REF) | payer SELFPAY ==
--- OUTSIDE RECORDS SUMMARY | 2024-10-23 13:28 | XMS_ITS | Clinical Summary ---
Author Organization [employer] Address [address] [place] [address] [place] [address] Care Team Providers Care Rotoformer Backtender Name Role Phone Unavailable Primary Care Provider Unavailabl e Encounters Date Type Department Care Team Description 10/03/2024 2:45 PM EDT Immunization [facility] [address] [place] [address] Encounter for immunization from Last 3 Months [...] age to complete this topic Insurance MEDICARE [facility] MEDEX CARE
== END 2024-10-23 11:27 | disposition home or self-care (01) ==
LOC: HO.HAP 11:26
PROVIDERS: Visit Provider Internal Medicine
DX: Z46.1 Encounter for fitting and adjustment of hearing aid (principal); H90.2 Conductive hearing loss, unspecified
CPT/HCPCS: 92593

== ENCOUNTER 2024-10-25 10:27 | Outpatient (REF) | payer MEDICARE, SELFPAY ==
--- OUTSIDE RECORDS SUMMARY | 2024-10-25 12:15 | XMS_ITS | Patient Health Record ---
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) Active confirmed Problem 05368948 Hypertension, unspecified type (I10) Active confirmed Plan Of Treatment Future Test Test Name Order Date COLONOSCOPY 03/09/2019 Insurance Providers Payer Name Payer Address Payer Phone Subscriber Number Group Number Insured Name Patient Relationship to Insured Coverage Start Date Coverage End Date MEDICARE OF [place] [address] [place] [address] [phone] [id number] DENISHA BRIGGS Self - patient is the insured MEDEX ATTN CLAIMS [address] [place] [address] [phone] [id number] DENISHA BRIGGS Self - patient is the insured Medical (General) History Medical History History ICD Code Denies [place],DM,CVA,Lung disease,renal dise ase Neg. colonoscopy in [address] Escudero and neg limited colonoscopy/CT colonography with Dr. 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 celiac di sease labs in 2019 Surgical History Surgery Date(Month/Year)
--- OUTSIDE RECORDS SUMMARY | 2024-10-25 12:15 | XMS_ITS | Patient Health Record ---
Author Organization [facility] Address [address] [place] [address] Care Team Providers Care Card Game Operator Name Role Phone Clifford Ortega MD Primary Care Provider Akira Bedoya Unavailable [phone] Allergies No Known Allergies Reason For Referral [...] Problem Acquired hammer toe of right foot (5276444851652 105) Other hammer toe(s) (acquired), right foot (M20.41) Active confirmed Problem Acquired hammer toe of left foot (6221541316124 103) Other hammer toe(s) (acquired), left foot (M20.42) Active confirmed Vital Signs Blood pressure diastolic 85 mm Hg 03/15/2024 Height 6 ft 0 in in 03/15/2024 Blood pressure systolic 150 mm Hg 03/15/2024 Weight 160 lbs 03/15/2024 BMI 21.7 kg/m2 03/15/2024 Encounters Encounter Location Date Provider Diagnosis [facility] [place] [address] [place] [address] 03/15/2024 Akira Baird 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 ; [...] Treatment Pending Test Test Name Order Date 41761-LWWPNSRA OF HEMATOMA/FLUID 022 Insurance Providers Payer Name Payer Address Payer Phone Subscriber Number Group Number Insured Name Patient Relationship to Insured Coverage Start Date Coverage End Date Medicare National [facility] [address] [place] [address] [id number] Olvin Ocasio Self - patient is the insured [employer] Blue Shield [address] [place] [address] [id number] Olvin Ocasio Self - patient is the insured Medical (General) History Medical History History ICD Code CAD (Cholesterol) High blood pressure Measles Mumps Chicken pox Surgical History Surgery Date(Month/Year) Hernia Repair 10/2022
--- OUTSIDE RECORDS SUMMARY | 2024-10-25 12:15 | XMS_ITS | Clinical Summary ---
Author Organization [employer] Address [address] [place] [address] [place] [address] Care Team Providers Care Compressor Repairer Name Role Phone Unavailable Primary Care Provider Unavailabl e Encounters Date Type Department Care Team Description 10/03/2024 2:45 PM EDT Immunization [facility] [address] [place] [address] Encounter for immunization from Last 3 Months [...] age to complete this topic Insurance MEDICARE [facility] MEDEX CARE
--- OUTSIDE RECORDS SUMMARY | 2024-10-25 12:15 | XMS_ITS ---
Author Organization [facility] Address [address] [place] [address] Care Team Providers Care Shipping/Receiving Manager Name Role Phone Jordan ANGLIN, Clifford Primary Care Provider Akira Bedoya [phone] Allergies No Known Allergies REASON FOR VISIT [...] 024 Encounters Encounter Location Date Provider Diagnosis [facility] [address] [place] [address] 03/15/2024 Akira Baird 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 ; [...] as necessary. Patient chooses, no pharmaceutical tx (58847) Progress Notes * Olvin BRIGGS CDOB:1940 (83 yo M)Acc No.[id number]:03/15/2024 Progress Note Patient:?Olvin Briggs C Provider:?Akira Baird DPM :1940???Age:83 Y???Sex:Male Braulio e:03/15/2024 Address:[address] [place] [address], [facility] Pcp:Clifford Ortega MD Subjective: * Chief Complaints: [...] walking, stationary exercise. ?Marital status: . 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 * Medications:?UnknownFinaster cony 5 [...] as necessary. Patient chooses, no pharmaceutical tx (16065).? * Procedure Codes:?78926 DEBRI DE NAIL, 6 OR MORE, Modifiers: [...] DPM Date:? 024 Generated for Trinity wallis/Isabel/eTransmitting on:?10/25/2024 12:15 PM EDT History and Physical Notes * [...]
[2024-10-25 12:34] LABS: PSA,Total (Free>4and<10) 6.41 ng/mL (0.00-4.00)
[2024-10-31 11:58] LABS: Free Prostate Spec Ag 0.6 ng/mL; Percent Free Prostate Spec Ag 9 % (calc) (>25); Prostate Specific Ag Total 6.7 ng/mL (< OR = 4.0)
== END 2024-10-25 10:28 | disposition home or self-care (01) ==
LOC: HO.LAB 10:27
PROVIDERS: Visit Provider Urology
DX: R97.20 Elevated prostate specific antigen [PSA] (principal); Z12.5 Encounter for screening for malignant neoplasm of prostate
CPT/HCPCS: 36415; 84153; 84154

== ENCOUNTER 2024-11-14 10:25 | Outpatient (AMB) | payer MEDICARE, SELFPAY ==
--- NOTE | 2024-11-14 10:27 | A.OFFVIS_ITS ---
Intake Visit Reasons: 6m/ PSA Intake Note: Patient is present for 6M/PSA Urology Medication:TAMSULOSIN,FINASTERIDE Antibiotic Allergy:NONE Blood Thinner:NONE TODAY'S PVR:0ML'S Professional Nursing Tutor Required: No Allergies No Known Allergies [No Known Allergies*] Allergy (Verified 11/14/24 10:33) HPI Comments Details: Olvin is a very pleasant male. He is a patient of Dr. Ray. He is seen for the following urologic conditions - elevated PSA - lower urinary tract symptoms Six-month follow-up PSA continued to rise from last year whilst on finasteride Six-month follow-up ALEXANDER 1+ soft PSA 10/02 4.5 11%, 11/03 6.7 9% PVR 30 cc Urinary Symptoms Review - Previous obstruction of urinary flow post-hernia repair. - Currently on tamsulosin for LUTS. - Continues on finasteride for presumed prostate enlargement. Lower urinary tract symptoms Intermittently required tamsulosin Elevated PSA Here for follow-up evaluation of elevated PSA and lower urinary tract symptoms Current therapy finasteride plus tamsulosin PSA 09/02 9.8, 10/01 5.0 12% Reports prior PSAs in the 3-4 range ALEXANDER 1+, soft nodule right base Initial urinary symptoms, is some degree of incomplete bladder emptying and hesitancy, nocturia 2-3 Repeat PSA in 6 months [facility] Medical History Left inguinal hernia (03/26/23) History of urinary frequency Screening for diabetes mellitus Hyperlipidemia RIZWAN on CPAP IBS (irritable bowel syndrome) Dyslipidemia Surgical History History of colonoscopy Family History Father Mental health disorder Mother No problems noted. Social History Housing: House Alcohol intake: current Patient Tobacco Use Status: Former Tobacco user Tobacco use type: Cigarette Years Smoked: 2 years. Over 60 years ago. e-Cigarette/Vaping Use: Never Used Second Hand Smoke Exposure: No service: No Current occupational status: retired Cognitive needs: No Hearing needs: No Vision needs: No Review of Systems Const Denies chills and Denies fever(s) Card Reports no additional complaints and Denies syncope Resp Denies cough GI Denies abdominal pain and Denies heartburn Reports as per HPI and Denies change in libido Neuro Denies syncope Psych Denies change in libido Endo Denies change in libido Physical Exam Const General: cooperative, healthy appearing, comfortable and no acute distress Orientation/consciousness: patient oriented x3 HEENT Face and sinus: Yes normal facial exam Mouth: moist mucous membranes Neck Neck: Yes normal visual inspection, Yes full ROM and Yes trachea midline Chest Chest palpation & inspection: normal inspection of the chest Resp Effort & Inspection: normal respiratory effort, able to speak in complete sentences and no respiratory distress GI Inspection: Yes normal to inspection Rectal Exam - Male: Yes normal sphincter tone and Yes prostate normal Male General Exam: Yes normal external exam Penis: normal penis and circumcised Meatus: meatus normal Scrotum: scrotum normal Testes: Testes normal Back/Spine/Pelvis Cervical Spine: normal cervical lordosis Thoracic/Lumbar Spine: thoracic and lumbar spine normal to inspection Skin General skin exam: no rashes or lesions noted Neuro General: patient oriented x3, gait normal, tone normal and moves all extremities Extrem General: Yes normal to inspection and Yes capillary refill normal Office Procedures Post Void Residual Post Residual Void Post Void Residual (PVR): 0 27999-Gnjs Void Residual by ultrasound Assessment & Plan Assessment & Plan (1) Elevated PSA: Code(s): R97.20 - Elevated prostate specific antigen [PSA] Category: Medical (2) Nocturia more than twice per night: Code(s): R35.1 - Nocturia Category: Medical Plan Plan 1. Elevated Prostate-Specific Antigen Psa The PSA level is stable. ALEXANDER is normal. Continue monitoring and reassess in six months. 2. Lower Urinary Tract Symptoms Luts Continue current therapy with tamsulosin and finasteride. Reevaluate in six months. Discussion Notes I explained to the patient that his prostate-specific antigen (PSA) level has slightly increased but remains stable enough for continued surveillance rather than immediate biopsy, especially due to his age. We discussed the statistical likelihood of elevated PSA not significantly affecting life expectancy and emphasized monitoring through regular examination and testing every six months. I reaffirmed the continuation of his current treatment regimen for benign prostatic hyperplasia (BPH) with tamsulosin and finasteride. We reviewed the importance of recognizing significant changes in urinary symptoms or new health concerns that may necessitate earlier re-evaluation. Patient Instructions - Continue taking tamsulosin and finasteride as prescribed. - Monitor for any changes in urinary symptoms. - Schedule a follow-up appointment in six months. - Contact the clinic if you notice new or worsening symptoms Orders: Orders AMB Urinalysis Automated Today Z13.9 - Encounter for screening, unspecified PSA,Total (Free>4and<10) 6 Months R97.20 - Elevated prostate specific antigen [PSA] Patient Instructions: This note is constructed using voice recognition software. While every effort has been made to ensure accuracy drapery examiner errors may have been included. Imaging studies, laboratory and physical exam results were discussed and reviewed in detail. No major barriers to patient understanding were identified. An opportunity to ask questions regarding the treatment plan was provided. All questions were answered. The patient expressed understanding and agreement with the above treatment plan. The patient is aware they should contact our office by phone for worsening of their current condition or the appearance of new urologic symptoms. Compliance is encouraged with any medications and followup testing that is ordered. It is a privilege to participate in the urologic care of your patient. If you have any questions or concerns regarding treatment for the above conditions, or other urologic issues, please do not hesitate to contact me. The office telephone contact is [phone]. Sincerely, Dr Domo Perkins MD, [facility] - Urology Compassionate Specialist Care for the Genitourinary System Coding Level of Care Code Est Pt Level 3 (27875) Complex EM visit Add On G2211 Diagnoses Elevated PSA R97.20 Nocturia more than twice per night R35.1 CPT Codes Post Residual Void - PVR CPT Code: 79209-Occb Void Residual by ultrasound ([id number])
--- OUTSIDE RECORDS SUMMARY | 2024-11-14 11:57 | XMS_ITS | Patient Health Record ---
[facility] Address [address] [place] [address] Care Team Providers Care Lurer Name Role Phone Clifford Ortega MD Primary Care Provider Akira Bedoya Unavailable [phone] Allergies No Known Allergies Reason For Referral [...] Problem Acquired hammer toe of right foot (1327111950196 105) Other hammer toe(s) (acquired), right foot (M20.41) Active confirmed Problem Acquired hammer toe of left foot (6596351915488 103) Other hammer toe(s) (acquired), left foot (M20.42) Active confirmed Vital Signs Blood pressure diastolic 85 mm Hg 03/15/2024 Height 6 ft 0 in in 03/15/2024 Blood pressure systolic 150 mm Hg 03/15/2024 Weight 160 lbs 03/15/2024 BMI 21.7 kg/m2 03/15/2024 Encounters Encounter Location Date Provider Diagnosis [facility] [place] [address] [place] [address] 03/15/2024 Akira Baird 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 ; [...] Treatment Pending Test Test Name Order Date 26939-PSBPSBAE OF HEMATOMA/FLUID 022 Insurance Providers Payer Name Payer Address Payer Phone Subscriber Number Group Number Insured Name Patient Relationship to Insured Coverage Start Date Coverage End Date Medicare National [facility] [address] [place] [address] [id number] Olvin Ocasio Self - patient is the insured [employer] [address] [place] [address] [phone] [id number] Olvin Ocasio Self - patient is the insured Medical (General) History Medical History History ICD Code CAD (Cholesterol) High blood pressure Measles Mumps Chicken pox Surgical History Surgery Date(Month/Year) Hernia Repair 10/2022
--- OUTSIDE RECORDS SUMMARY | 2024-11-14 11:57 | XMS_ITS ---
[facility] Organization [facility] Address [address] [place] [address] Care Team Providers Care Packaging Tech Name Role Phone Jordan ANGLIN, Clifford Primary Care Provider Akira Bedoya [phone] Allergies No Known Allergies REASON FOR VISIT [...] 024 Encounters Encounter Location Date Provider Diagnosis [facility] [address] [place] [address] 03/15/2024 Akira Baird 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 ; [...] as necessary. Patient chooses, no pharmaceutical tx (55191) Progress Notes * Olvin BRIGGS CDOB:1940 (83 yo M)Acc No.[id number]:03/15/2024 Progress Note Patient:?Olvin Briggs C Provider:?Akira Baird DPM :1940???Age:83 Y???Sex:Male Braulio e:03/15/2024 Address:[address] [place] [address], [facility] Pcp:Clifford Ortega MD Subjective: * Chief Complaints: [...] walking, stationary exercise. ?Marital status: . 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 * Medications:?UnknownFinaster cony 5 [...] as necessary. Patient chooses, no pharmaceutical tx (41010).? * Procedure Codes:?47890 DEBRI DE NAIL, 6 OR MORE, Modifiers: [...] * Sign off status: Completed true * Provider:?Akira Baird DPM Date:? 024 Generated for Trinity wallis/Isabel/eTransmitting on:?11/14/2024 11:57 AM EDT History and Physical Notes * HPI [...]
--- OUTSIDE RECORDS SUMMARY | 2024-11-14 11:57 | XMS_ITS | Patient Health Record ---
Author Organization [facility] Address [address] [place] [address] Care Team Providers Care Attenuator Name Role Phone Clifford Ortega MD Primary Care Provider Unavaila Geronimo Jaeger Unavailable [phone] Reason For Referral No Information Medications Medication [...] Problem Status W/U Status Risk Notes Problem 838039332 Change in bowel habits (R19.4) Active confirmed Problem Altered bowel function (52143134) Change in bowel function (R19.4) Active confirmed Problem 24589580 Irritable bowel syndrome with both constipation and diarrhea (K58.2) Active confirmed Problem 64783105 Hypertension, unspecified type (I10) Active confirmed Plan Of Treatment Future Test Test Name Order Date COLONOSCOPY 03/09/2019 Insurance Providers Payer Name Payer Address Payer Phone Subscriber Number Group Number Insured Name Patient Relationship to Insured Coverage Start Date Coverage End Date MEDICARE OF [place] [address] [place] [address] [phone] [id number] DENISHA BRIGGS Self - patient is the insured [employer] CLAIMS [address] [place] [address] [id number] DENISHA BRIGGS Self - patient is the insured Medical (General) History Medical History History ICD Code Denies SD,DM,CVA,Lung disease,renal dise ase Neg. colonoscopy in [address] Escudero and neg limited colonoscopy/CT colonography with Dr. 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 celiac di sease labs in 2019 Surgical History Surgery Date(Month/Year)
--- OUTSIDE RECORDS SUMMARY | 2024-11-14 11:58 | XMS_ITS | Clinical Summary ---
Author Organization [employer] Address [address] [place] [address] [place] [address] Care Team Providers Care Farmer Vegetable Name Role Phone Unavailable Primary Care Provider Unavailabl e Encounters Date Type Department Care Team Description 10/03/2024 2:45 PM EDT Immunization [facility] [address] [place] [address] Encounter for immunization from Last 3 Months [...] age to complete this topic Insurance MEDICARE [facility] MEDEX CARE
== END 2024-11-14 11:23 | disposition home or self-care (01) ==
LOC: HO.HUSH 10:26
PROVIDERS: PCP Internal Medicine; Visit Provider Urology
DX: R97.20 Elevated prostate specific antigen [PSA] (principal); R35.1 Nocturia
CPT/HCPCS: 99213; G2211

== ENCOUNTER → 2024-11-14 10:25 | Outpatient (BNVA) | payer MEDICARE, SELFPAY | PROVIDERS: PCP Internal Medicine; Visit Provider Urology | DX: R97.20 Elevated prostate specific antigen [PSA] (principal); R35.1 Nocturia | CPT/HCPCS: 51798; 99212 ==

== ENCOUNTER 2025-01-31 15:00 | Outpatient (AMB) | payer MEDICARE, SELFPAY ==
--- NOTE | 2025-01-31 15:06 | MHC.PC.OV ---
Vital Signs 01/31/25 15:07 Height 5 ft 10 in Weight 170 lb 4 oz BMI 24.4 BP 118/70 Blood Pressure Location Lt brachial Position Sitting Pulse 64 Pulse Source Pulse Oximeter Temp 98.5 F Temp Source Oral Pulse Oximetry (%) 96 Oxygen Delivery Method Room Air Intake Visit Reasons: ASHLEE DR Ortega/ month f/u Independent Living Instructor Required: No Accompanied by: Self / Same As Patient Allergies No Known Allergies (No Known Allergies*) Allergy (Verified 01/31/25 15:20) Medication List - Last Reconciled 01/31/25 by DON Vo finasteride 5 mg PO DAILY 90 days hydrochlorothiazide 25 mg PO DAILY metronidazole 0.75% appl topical BID PRN simvastatin 20 mg PO DAILY tamsulosin 0.4 mg PO BEDTIME 90 days Tobacco use date assessed: 01/31/25 Fall risk assessment: No Falls in past year Last assessed Fall Risk: 01/31/25 Dental Screening Dental Screen Date: 01/31/25 Did you have a dental visit in the last 12 months?: Yes Did you have a dental problem in the last 6 months where you did not have access to dental care?: No Was dental information given to patient?: Patient has dentist HPI ASHLEE DR Ortega/ 6 month f/u HPI Details The patient is an 84-year-old male presenting with the management of multiple chronic conditions, including PSA variability, sleep apnea, and GERD. The patient reports a history of fluctuating PSA levels, with recent discussions about potential surgical intervention due to the variability. He expresses hesitance towards surgery given his age, preferring to monitor the situation closely. He experiences nocturia, typically waking once or twice per night, which is somewhat managed by current medication. The patient has a history of sleep apnea and uses a CPAP machine nightly, which he tolerates well, although he occasionally feels tired during the day. He reports a history of anemia, with previous blood work indicating low red blood cell counts. There is also a concern for vitamin D deficiency due to limited sunlight exposure, which may contribute to his fatigue. The patient experiences symptoms consistent with GERD, including heartburn, which he manages with oaxl-fqb-gmdlbiu omeprazole. He is advised to take the medication before meals to prevent acid reflux symptoms. He reports the presence of purpura on his arms, attributed to minor trauma and increased skin fragility. Patient reports that he used to follow up with Dr. Ortega for six-month. [facility] Medical History Left inguinal hernia (03/26/23) History of urinary frequency Screening for diabetes mellitus Hyperlipidemia RIZWAN on CPAP IBS (irritable bowel syndrome) Dyslipidemia Surgical History History of colonoscopy Family History Father Mental health disorder Mother No problems noted. Social History Housing: House Alcohol intake: current Patient Tobacco Use Status: Former Tobacco user Tobacco use type: Cigarette Years Smoked: 2 years. Over 60 years ago. e-Cigarette/Vaping Use: Never Used Second Hand Smoke Exposure: No service: No Current occupational status: retired Cognitive needs: No Hearing needs: No Vision needs: No Questionnaire PHQ-9 Over the last 2 weeks, how often have you been bothered by any of the following problems? 1. Little interest or pleasure in doing things: nearly every day 2. Feeling down, depressed, or hopeless: nearly every day 3. Trouble falling or staying asleep, or sleeping too much: not at all 4. Feeling tired or having little energy: nearly every day 5. Poor appetite or overeating: not at all 6. Feeling bad about yourself - or that you are a failure or have let yourself or your family down: not at all 7. Trouble concentrating on things, such as reading the newspaper or watching television: more than half the days 8. Moving or speaking so slowly that other people could have noticed. Or the opposite - being so fidgety or restless that you have been moving around a lot more than usual: more than half the days 9. Thoughts that you would be better off or of hurting yourself in some way: not at all Total score: 13 Depression Screening Interpretation: Positive Depression Screening Done: Yes Source: Developed by Drs. Geronimo Garcia, Cortney Mathis, Santana Jaime and colleagues, with an educational germain from [employer]. Thrive Questionnaire Date Thrive assessed: 01/31/25 I am a: Patient What is your living situation today?: I have a steady place to live Within the past 12 months, did the food you bought not last and you didn't have the money to get more?: Never true Within the past 12 months, did you worry whether your food would run out before you got money to buy more?: Never true Do you have trouble paying for medicines?: No Do you have trouble getting transportation to medical appointments?: No Do you have trouble paying your heating and electricity bill?: No Do you have trouble taking care of your child, family member or friend?: No Do you have trouble with day-to-day activities such as bathing, preparing meals, shopping, managing finances, etc.?: No Are you currently unemployed and looking for a job?: No Are you interested in more education?: No THRIVE Score: 0 GUERRERO-7 AMB Questionnaire GUERRERO-7 Date GUERRERO - 7 assessed: 01/31/25 Source: Developed by Drs. Geronimo Garcia, Cortney Mathis, Santana Jaime and colleagues, with an educational germain from [employer]. Review of Systems Const Reports fatigue and Denies headache(s) Eyes Denies loss of vision ENT Denies vertigo, Denies dizziness, Denies headache(s) and Denies sore throat Card Denies chest pain, Denies leg edema and Denies lightheadedness Resp Denies cough, Denies hemoptysis and Denies wheezing GI Denies abdominal pain, Denies melena, Denies constipation, Reports heartburn, Denies diarrhea and Denies vomiting Denies dysuria, Reports nocturia and Denies urinary urgency Musc Denies arthralgias, Denies joint swelling, Denies numbness and Denies tingling Skin/Breast Reports other (Bruised appearing areas to forearm) Neuro Denies Abnormal speech present, Denies behavioral changes, Denies vertigo, Denies dizziness, Denies headache(s), Denies loss of vision, Denies memory loss, Denies numbness and Denies tingling Psych Denies anxiety, Denies behavioral changes, Denies depression, Denies memory loss and Denies panic attacks Endo Reports fatigue Herman/Lymph Denies easy bleeding and Denies easy bruising Aller/Immun Denies wheezing Physical exam (Primary Care) Vital Signs: Last Vital Signs Temp 98.5 F 01/31/25 15:07 Pulse 64 01/31/25 15:07 BP 118/70 01/31/25 15:07 Pulse Ox 96 01/31/25 15:07 Oxygen Delivery Method Room Air 01/31/25 15:07 BMI result Body Mass Index 24.4 Tobacco/Smoking Status: Tobacco use Status Tobacco use date assessed 01/31/25 01/31/25 15:13 Patient Tobacco Use Status Former Tobacco user 01/31/25 15:13 Tobacco use type Cigarette 01/31/25 15:13 e-Cigarette/Vaping Use Never Used 01/31/25 15:13 PHQ-9: PHQ-9 Score PHQ-9: Total score 13 01/31/25 15:21 Depression Screening Interpretation: Positive Thrive Assessment: Date of Thrive Assessment Date Thrive assessed 01/31/25 01/31/25 15:13 Const General: healthy appearing, no acute distress, alert and awake Nutritional Appearance: well nourished Orientation/consciousness: oriented to person, oriented to place and oriented to time HENMT Ears: TM's normal bilaterally General nose exam: Normal nasal mucous membranes and turbinates present Eyes Conjunctivae: conjunctivae normal Sclerae: sclerae normal Pupils: Equal, round and reactive pupils present Neck Neck: Yes no lymphadenopathy and Yes no JVD Thyroid: Thyroid normal Carotids: no bruits Resp Effort & Inspection: normal respiratory effort and not tachypneic Auscultation: no crackles, no rales, no rhonchi and no wheezes Cardio Rate: regular rate Rhythm: regular rhythm Heart sounds: no murmurs and normal S1 and S2 GI Palpation (GI): Soft to palpation, nontender, no hepatomegaly and no splenomegaly Auscultation: normal bowel sounds General: Yes no CVA tenderness Back/Spine/Pelvis Back: no CVA tenderness Skin General skin exam: dry skin and other (Purpura to bilateral forearms) Neuro General: oriented to person, oriented to place and oriented to time Cranial nerves: Yes Equal, round and reactive pupils present Speech: No Abnormal speech present Gait exam (Neuro): Normal gait present Motor exam (neuro): no tremor noted Extrem Right upper extremity: full ROM Left upper extremity: full ROM Right lower extremity: full ROM; no edema Left lower extremity: full ROM; no edema Psych Mental Status: mental status grossly normal Speech and movement: Normal speech and movement present Affect: normal affect Attitude: cooperative Thought process: Normal thought process present Coding Level of Care Code Est Pt Level 4 (17015) Diagnoses Hypertension, unspecified type I10 Hypertension type: unspecified Hyperlipidemia, unspecified hyperlipidemia type E78.5 Hyperlipidemia type: unspecified Irritable bowel syndrome, unspecified type K58.9 Irritable bowel syndrome type: unspecified RIZWAN on CPAP G47.33; Z99.89 Elevated PSA R97.20 Nocturia more than twice per night R35.1 Time Spent (min) 38 Assessment & Plan Assessment & Plan (1) Hypertension: Code(s): I10 - Essential (primary) hypertension Category: Medical Qualifiers: Hypertension type: unspecified Qualified Code(s): I10 - Essential (primary) hypertension (2) Hyperlipidemia: Code(s): E78.5 - Hyperlipidemia, unspecified Category: Medical Qualifiers: Hyperlipidemia type: unspecified Qualified Code(s): E78.5 - Hyperlipidemia, unspecified (3) IBS (irritable bowel syndrome): Code(s): K58.9 - Irritable bowel syndrome, unspecified Category: Medical Qualifiers: Irritable bowel syndrome type: unspecified Qualified Code(s): K58.9 - Irritable bowel syndrome, unspecified (4) RIZWAN on CPAP: Comment: RIZWAN, 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 Sleep quality much improved , with use of CPAP . Has problem with the humidification. Code(s): G47.33 - Obstructive sleep apnea (adult) (pediatric); Z99.89 - Dependence on other enabling machines and devices Category: Medical (5) Elevated PSA: Code(s): R97.20 - Elevated prostate specific antigen [PSA] Category: Medical (6) Nocturia more than twice per night: Code(s): R35.1 - Nocturia Category: Medical Plan Urology plan includes monitoring the patient's PSA levels closely to assess the need for potential surgical intervention, considering the patient's age and preferences. For sleep apnea, the patient is advised to continue using the CPAP machine nightly to manage symptoms effectively. To address anemia and potential vitamin D deficiency, repeat blood work will be conducted to evaluate red blood cell counts and vitamin D levels. For GERD management, the patient is instructed to take omeprazole before meals to prevent acid reflux symptoms. The presence of purpura will be monitored, and the patient is advised to avoid trauma to the skin to prevent further occurrences. Blood pressure 118/70. Reinforced low-salt diet. Continue hydrochlorothiazide 25 mg daily. Continue finasteride 5 mg daily and Flomax 0.4 mg at bedtime. Follow up with Urology as scheduled. New labs since 2022. Continue simvastatin 20 mg daily. We will order labs to re-evaluate cholesterol level. Patient was informed and verbally consented to the use of an ambient scribe for clinic note documentation during this visit. Orders: Orders Complete Blood Count Auto Diff 01/31/25 I10 - Essential (primary) hypertension, E78.5 - Hyperlipidemia, unspecified, K58.9 - Irritable bowel syndrome, unspecified, G47.33 - Obstructive sleep apnea (adult) (pediatric), Z99.89 - Dependence on other enabling machines and devices TSH reflex Free T4 01/31/25 I10 - Essential (primary) hypertension, E78.5 - Hyperlipidemia, unspecified, K58.9 - Irritable bowel syndrome, unspecified, G47.33 - Obstructive sleep apnea (adult) (pediatric), Z99.89 - Dependence on other enabling machines and devices Vitamin B12 and Folate 01/31/25 I10 - Essential (primary) hypertension, E78.5 - Hyperlipidemia, unspecified, K58.9 - Irritable bowel syndrome, unspecified, G47.33 - Obstructive sleep apnea (adult) (pediatric), Z99.89 - Dependence on other enabling machines and devices Lipid Panel 01/31/25 I10 - Essential (primary) hypertension, E78.5 - Hyperlipidemia, unspecified, K58.9 - Irritable bowel syndrome, unspecified, G47.33 - Obstructive sleep apnea (adult) (pediatric), Z99.89 - Dependence on other enabling machines and devices Comprehensive [place]. Panel Fast 01/31/25 I10 - Essential (primary) hypertension, E78.5 - Hyperlipidemia, unspecified, K58.9 - Irritable bowel syndrome, unspecified, G47.33 - Obstructive sleep apnea (adult) (pediatric), Z99.89 - Dependence on other enabling machines and devices IRON PROFILE 01/31/25 I10 - Essential (primary) hypertension, E78.5 - Hyperlipidemia, unspecified, K58.9 - Irritable bowel syndrome, unspecified, G47.33 - Obstructive sleep apnea (adult) (pediatric), Z99.89 - Dependence on other enabling machines and devices UA CC w/rflx Micro + Cult 01/31/25 I10 - Essential (primary) hypertension, E78.5 - Hyperlipidemia, unspecified, K58.9 - Irritable bowel syndrome, unspecified, G47.33 - Obstructive sleep apnea (adult) (pediatric), Z99.89 - Dependence on other enabling machines and devices Vitamin D 25-OH Total 01/31/25 I10 - Essential (primary) hypertension, E78.5 - Hyperlipidemia, unspecified, K58.9 - Irritable bowel syndrome, unspecified, G47.33 - Obstructive sleep apnea (adult) (pediatric), Z99.89 - Dependence on other enabling machines and devices Medications: New omeprazole 20 mg PO DAILY 90 caps 3RF
[2025-01-31 15:07] VITALS: BP 118/70; PULSE 64; TEMP 36.9; O2SAT 96; BMI 24.4
--- OUTSIDE RECORDS SUMMARY | 2025-01-31 15:35 | XMS_ITS | Patient Health Record ---
[facility] Address [address] [place] [address] Care Team Providers Care Stockroom Selector Name Role Phone Clifford Ortega MD Primary Care Provider Akira Bedoya Unavailable [phone] Allergies No Known Allergies Reason For Referral No Information Medications Medication SIG (Take, Route, Fr equency, Duration) Notes Start Date End Date Status Simvastatin 20 MG 1 tablet in the even ing Orally Once a day; Duration: 30 day(s) Unknown Finasteride 5 MG 1 [...] Problem Acquired hammer toe of right foot (8587298020173 105) Other hammer toe(s) (acquired), right foot (M20.41) Active confirmed Problem Acquired hammer toe of left foot (8020583460257 103) Other hammer toe(s) (acquired), left foot (M20.42) Active confirmed Vital Signs Blood pressure diastolic 85 mm Hg 03/15/2024 Height 6 ft 0 in in 03/15/2024 Blood pressure systolic 150 mm Hg 03/15/2024 Weight 160 lbs 03/15/2024 BMI 21.7 kg/m2 03/15/2024 Encounters Encounter Location Date Provider Diagnosis [facility] [place] [address] [place] [address] 03/15/2024 Akira Baird 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 [facility] [address] [place] [address] [id number] Olvin Ocasio Self - patient is the insured [employer] [address] [place] [address] [id number] Olvin Ocasio Self - patient is the insured Medical (General) History Medical History History ICD Code CAD (Cholesterol) High blood pressure Measles Mumps Chicken pox Surgical History Surgery Date(Month/Year) Hernia Repair 10/2022
--- OUTSIDE RECORDS SUMMARY | 2025-01-31 15:36 | XMS_ITS | Clinical Summary ---
Author Organization [facility] Address [address] [place] [address] Care Team Providers Care Filtering Machine Tender Name Role Phone Unavailable Primary Care Provider Unavailabl e Immunizations Immunization Administration Dates Next Due Influenza, seasonal, injectable, [...] older (1 - 1-dose 75+ series) 12/07/2015 Influenza Vaccine (#1) 2025 4, 05/05/2023, 04/20/2022, Additional history exists Pneumococcal Vaccine: 50+ Years Completed 05/06/2018, 10/21/2016 COVID-19 Vaccine Completed 10/03/2024, , 05/12/2023, Additional [...] patient's age to complete this topic Meningococcal B Vaccine Aged Out No l onger eligible based on patient's age to complete this topic Meningococcal Vaccine Aged Out No mason chel eligible based on patient's age to complete this topic RSV under 20 months Aged Out No longe r eligible based on patient's age to complete this topic Rotavirus Vaccines Aged Out No longer eligible based on patient's age to complete this topic Insurance MEDICARE [facility] MEDEX CARE
--- OUTSIDE RECORDS SUMMARY | 2025-01-31 15:36 | XMS_ITS | Patient Health Record ---
Author Organization [facility] Address [address] [place] [address] Care Team Providers Care Director Design Name Role Phone Clifford Ortega MD Primary Care Provider Unavaila Geronimo Jaeger Unavailable [phone] Reason For Referral No Information Medications Medication [...] Problem Status W/U Status Risk Notes Problem [id number] Change in bowel habits (R19.4) Active confirmed Problem Altered bowel function (96681626) Change in bowel function (R19.4) Active confirmed Problem 89286526 Irritable bowel syndrome with both constipation and diarrhea (K58.2) Active confirmed Problem 38120933 Hypertension, unspecified type (I10) Active confirmed Plan Of Treatment Future Test Test Name Order Date COLONOSCOPY 03/09/2019 Insurance Providers Payer Name Payer Address Payer Phone Subscriber Number Group Number Insured Name Patient Relationship to Insured Coverage Start Date Coverage End Date MEDICARE OF [place] [address] [place] [address] [id number] DENISHA BRIGGS Self - patient is the insured [employer] ATT[employer] CLAIMS [address] [place] [address] [id number] DENISHA BRIGGS Self - patient is the insured Medical (General) History Medical History History ICD Code Denies [place],DM,CVA,Lung disease,renal dise ase Neg. colonoscopy in [address] Escudero and neg limited colonoscopy/CT colonography with Dr. 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 celiac di sease labs in 2019 Surgical History Surgery Date(Month/Year)
== END 2025-01-31 15:45 | disposition home or self-care (01) ==
LOC: HO.HMCH 15:00
DX: I10 Essential (primary) hypertension (principal); E78.5 Hyperlipidemia, unspecified; K58.9 Irritable bowel syndrome, unspecified; G47.33 Obstructive sleep apnea (adult) (pediatric); Z99.89 Dependence on other enabling machines and devices; R97.20 Elevated prostate specific antigen [PSA]; R35.1 Nocturia

== ENCOUNTER → 2025-01-31 15:00 | Outpatient (BNVA) | payer MEDICARE, SELFPAY | DX: I10 Essential (primary) hypertension (principal); E78.5 Hyperlipidemia, unspecified; K58.9 Irritable bowel syndrome, unspecified; R97.20 Elevated prostate specific antigen [PSA]; R35.1 Nocturia; G47.33 Obstructive sleep apnea (adult) (pediatric); Z99.89 Dependence on other enabling machines and devices | CPT/HCPCS: 99212 ==

== ENCOUNTER 2025-02-21 15:27 | Outpatient (REF) | payer MEDICARE, SELFPAY ==
--- OUTSIDE RECORDS SUMMARY | 2025-02-21 15:29 | XMS_ITS | Patient Health Record ---
Author [facility] Address [address] [place] [address] Care Team Providers Care Barrel Rifler Button Name Role Phone Clifford Ortega MD Primary Care Provider Akira Bedoya Unavailable [phone] Allergies No Known Allergies Reason For Referral [...] Problem Acquired hammer toe of right foot (5424181588019 105) Other hammer toe(s) (acquired), right foot (M20.41) Active confirmed Problem Acquired hammer toe of left foot (0316662953006 103) Other hammer toe(s) (acquired), left foot (M20.42) Active confirmed Vital Signs Blood pressure diastolic 85 mm Hg 03/15/2024 Height 6 ft 0 in in 03/15/2024 Blood pressure systolic 150 mm Hg 03/15/2024 Weight 160 lbs 03/15/2024 BMI 21.7 kg/m2 03/15/2024 Encounters Encounter Location Date Provider Diagnosis [facility] [place] [address] [place] [address] 03/15/2024 Akira Baird 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 ; [...] Treatment Pending Test Test Name Order Date [id number] OF HEMATOMA/FLUID 022 Insurance Providers Payer Name Payer Address Payer Phone Subscriber Number Group Number Insured Name Patient Relationship to Insured Coverage Start Date Coverage End Date Medicare National [facility] [address] [place] [address] [id number] Olvin Ocasio Self - patient is the insured [employer] [address] [place] [address] [phone] [id number] Olvin Ocasio Self - patient is the insured Medical (General) History Medical History History ICD Code CAD (Cholesterol) High blood pressure Measles Mumps Chicken pox Surgical History Surgery Date(Month/Year) Hernia Repair 10/2022
--- OUTSIDE RECORDS SUMMARY | 2025-02-21 15:29 | XMS_ITS | Clinical Summary ---
Author Organization [email or web address] Address [address] [place] [address] [address] [place] [address] Care Team Providers Care Transfer Operator Name Role Phone Unavailable Primary Care Provider [...] age to complete this topic Insurance MEDICARE [facility] MEDEX CARE
--- OUTSIDE RECORDS SUMMARY | 2025-02-21 15:29 | XMS_ITS | Patient Health Record ---
Author Organization [facility] Address [address] [place] [address] Care Team Providers Care Inside Outside Sales Representative Name Role Phone Clifford Ortega MD Primary Care Provider Unavaila Geronimo Jaeger Unavailable [phone] Reason For Referral No Information Medications Medication [...] Problem Status W/U Status Risk Notes Problem [id number] Change in bowel habits (R19.4) Active confirmed Problem Altered bowel function (27534248) Change in bowel function (R19.4) Active confirmed Problem 65320138 Irritable bowel syndrome with both constipation and diarrhea (K58.2) Active confirmed Problem 26706838 Hypertension, unspecified type (I10) Active confirmed Plan Of Treatment Future Test Test Name Order Date COLONOSCOPY 03/09/2019 Insurance Providers Payer Name Payer Address Payer Phone Subscriber Number Group Number Insured Name Patient Relationship to Insured Coverage Start Date Coverage End Date MEDICARE OF [place] [address] [place] [address] [phone] [id number] DENISHA BRIGGS Self - patient is the insured [employer] ATT[employer] CLAIMS [address] [place] [address] [id number] DENISHA BRIGGS Self - patient is the insured Medical (General) History Medical History History ICD Code Denies [place],DM,CVA,Lung disease,renal dise ase Neg. colonoscopy in [address] Escudero and neg limited colonoscopy/CT colonography with Dr. 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 celiac di sease labs in 2019 Surgical History Surgery Date(Month/Year)
[2025-02-21 15:48] LABS: MANUAL DIFF FLAG NO
[2025-02-21 16:52] LABS: Hematocrit 39.4 % (42.0-52.0); Hemoglobin 13.5 g/dl (14.0-18.0); Imm Gran Abs Auto 0.01 X10*3/uL (0.00-0.03); Imm Gran Pct Auto 0.2 % (0.0-0.4); Lymphocytes Absolute Auto 1.5 X10*3/uL (1.2-4.9); Mean Corpuscular HGB Conc 34.3 g/dl (31.0-36.0); Mean Corpuscular Hemoglobin 32.6 pg (27.0-33.0); Mean Corpuscular Volume 95.2 fL (80.0-98.0); NRBC Abs Auto 0.000 X10*3/uL (0.0-0.012); NRBC Pct Auto 0.0 /100WBC (0.0-0.2); Platelet Count 179 X10*3/uL (160-400); Red Blood Count 4.14 X10*6/uL (4.60-5.80); White Blood Count 4.2 X10*3/uL (4.8-10.8)
[2025-02-21 17:22] LABS: Appearance Urine Clear; Glucose Urine UA Negative (Negative); PH 6.0 (5.0-9.0); Specific Gravity - Urine 1.020 (1.005-1.025); UMIC TRIGGER UACC YES
[2025-02-21 17:27] LABS: Alanine Aminotransferase 21 U/L (0-40); Albumin Level 4.6 g/dL (3.5-5.0); Alkaline Phosphatase 53 U/L (39-117); Anion Gap 12 (12-20); Aspartate Amino Transferase 31 U/L (5-37); Blood Urea Nitrogen 19 mg/dL (9-16); Calcium 9.3 mg/dL (8.4-10.2); Carbon Dioxide 25 mmol/L (22-29); Chloride 107 mmol/L (96-108); Cholesterol 174 mg/dL (<200); Estimated Glomerular Filt Rate > 60; HDL Cholesterol 55 mg/dL (>40); Iron 81 mcg/dL (45-160); Percent Iron Saturation 36 % (15-50); Potassium 4.2 mmol/L (3.3-5.1); Sodium 140 mmol/L (135-145); Total Iron Binding Capacity 223 mcg/dL (228-428); Total Protein 7.3 g/dL (6.5-8.0); Triglycerides 48 mg/dL (<150); Unsaturated Iron Binding 142 ug/dL
[2025-02-21 17:51] LABS: Folate 12.8 ng/mL (> or = 4.0); Vitamin B12 428 pg/mL (200-900)
== END 2025-02-21 15:28 | disposition home or self-care (01) ==
LOC: HO.LAB 15:27
DX: I10 Essential (primary) hypertension (principal); E78.5 Hyperlipidemia, unspecified; K58.9 Irritable bowel syndrome, unspecified; G47.33 Obstructive sleep apnea (adult) (pediatric); Z99.89 Dependence on other enabling machines and devices; Z13.0 Encounter for screening for diseases of the blood and blood-forming organs and certain disorders involving the immune mechanism
CPT/HCPCS: 36415; 80053; 80061; 81001; 82306; 82607; 82746; 83540; 84443; 85025

== ENCOUNTER 2025-03-01 10:26 | Outpatient (REF) | payer SELFPAY ==
--- OUTSIDE RECORDS SUMMARY | 2025-03-01 11:58 | XMS_ITS ---
Author Name Dilia Lowe Address Unknown Organization [place] Care Team Providers Care Seed Expert Name Role Phone Unavailable Primary Care Physician Unavailab le History Of Present Illness This is an 84 year old male who is following up for rosacea (Other rosacea). He was seen on February 11, 2024, at which time The following treatment regimen was given: Continue the following treatment(s): Metronidazole 0.75% cream BID PRN. and he was prescribed Metronidazole 0.75 % topical cream (Apply to pimple-like areas on face with rosacea twice daily as needed.).The patient presents for furtherevaluation and management and focused visit.Today the patient reports: Modifying factors: better with medication and better with therapy.The patient followed the treatment plan as directed.Interval History: Pt presents today to f/u on rosacea. Has been well controlled overall. Hasn???t used metronidazole in past 6 months or so. Medications Medication Generic Name RxNorm Strength Strength Unit Route Dose Dose Form Frequency Date Started Date Ended Status Indication Sig metronidazo le metronid azole 670226 0.75 % Topica l apply thin layer cream PRN 05/23/20 21 active Appl y to pimp le-l herbie area s on face with gladys cea twic e mai y as need ed. finasteride 5 mg Oral 1 tabl e t QD active simvastatin simvasta tin 20 mg Oral 1 table t QD active Azithromyci n NULL 07/25/19 16 active Simvastatin NULL 07/25/19 16 active Simvastatin NULL 11/15/19 10 suspend ed Zolpidem Tartrate NULL 0 16 active Problems Problem Code Type Status Date of Diagnosis Date of Resolution Rosacea (disorder) 204058396( SNOMED) Diagnosis active 02/26/2025 Rosacea (disorder) 859296006( SNOMED) Diagnosis active 02/11/2024 Rosacea (disorder) 016651362( SNOMED) Diagnosis active 09/11/2022 Inflamed seborrheic keratosis (disorder) 073847132( SNOMED) Diagnosis active 05/23/2021 Rosacea (disorder) 831618849( SNOMED) Diagnosis active 05/23/2021 Seborrheic keratosis (disorder) 696079616( SNOMED) Diagnosis active 05/23/2021 Senile hyperkeratosis (disorder) 725619199( SNOMED) Diagnosis active 07/25/2015 Hypercholesterolemia (disorder) 90498161(S NOMED) Problem active Results No data Encounters Service provided at [address], [address], [place], [place] [id number]. Office phonenumber is [phone]. Office fax number is [phone]. Encounter Diagnosis Location Date / Time Type Rosacea (L71.8) [place] 02/26/2025 12:30:00 [facility] 9 9213 Reason For Referral No data Procedures Procedure Date Documentation of current medications (pr ocedure) 02/26/2025 12:00 am [facility] Cryotherapy of skin lesion with liquid n itrogen (procedure) 05/23/2021 12:00 am [facility] Documentation of past medical history (p rocedure) Documentation of past medical history (p rocedure) Documentation of past medical history (p rocedure) Documentation of past medica l history (procedure) L Hip Rupture Repair (2022) Review Of Systems Provider reviewed on Feb 26, 2025.A focused review of systems was performed including Integumentary.No Problems With Healing And No Problems With Scarring (hypertrophic Or Keloid). Assessment 1.Rosacea, Status: Well ControlledTreatment Regimen: Plan - ::No changes to regimen.Refilled today,can get further refills from PCP.; Continue Regimen - Metronidazole 0.75% cream BID PRN;. Plan of Care Future visit PRN - Follow up PRN Code Detail Instructions 705445 metronidazole 0.75 % topical cre am Apply to pimple-like areas on face with rosacea twice daily as needed. 492635 metronidazole 0.75 % topical cre am Apply to pimple-like areas on face with rosacea twice daily as needed. 541999 metronidazole 0.75 % topical cre am Apply to pimple-like areas on face with rosacea twice daily as needed. 456161 metronidazole 0.75 % topical cre am Apply to pimple-like areas on face with rosacea twice daily as needed. 846387 metronidazole 0.75 % topical cre am Apply to pimple-like areas on face with rosacea twice daily as needed. 033844 metronidazole 0.75 % topical cre am Apply to pimple-like areas on face with rosacea twice daily as needed. Instructions * Continue the following treatment(s): Metronidazole 0.75% cream BID PRN. Plan: ::No changes to regimen.Refilled today, can get further refills from PCP. Social History Code Activity Start Date End Date 4945757 (SNOMED) Former smoker Sex male Sexual orientation Unspecified Gender identity Unspecified Vital Signs No data
--- OUTSIDE RECORDS SUMMARY | 2025-03-01 11:58 | XMS_ITS | Patient Health Record ---
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) Active confirmed Problem 34143889 Hypertension, unspecified type (I10) Active confirmed Plan Of Treatment Future Test Test Name Order Date COLONOSCOPY 03/09/2019 Insurance Providers Payer Name Payer Address Payer Phone Subscriber Number Group Number Insured Name Patient Relationship to Insured Coverage Start Date Coverage End Date MEDICARE OF [place] [address] [place] [address] [id number] DENISHA BRIGGS Self - patient is the insured MEDEX ATTN CLAIMS [address] [place] [address] [id number] DENISHA BRIGGS Self - patient is the insured Medical (General) History Medical History History ICD Code Denies OK,DM,CVA,Lung disease,renal dise ase Neg. colonoscopy in [address] Escudero and neg limited colonoscopy/CT colonography with Dr. 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 celiac di sease labs in 2019 Surgical History Surgery Date(Month/Year)
--- OUTSIDE RECORDS SUMMARY | 2025-03-01 11:58 | XMS_ITS | Clinical Summary ---
Author Organization [facility] Address [address] [place] [address] [address] [place] [address] Care Team Providers Care Photo Lab Technician Name Role Phone Unavailable Primary Care Provider [...] age to complete this topic Insurance [place] [id number] [facility] MEDEX CARE
--- OUTSIDE RECORDS SUMMARY | 2025-03-01 11:58 | XMS_ITS | Patient Health Record ---
Author [facility] Address [address] [place] [address] Care Team Providers Care Staff Research Associate Name Role Phone Clifford Ortega MD Primary Care Provider Akira Bedoya Unavailable [phone] Allergies No Known Allergies Reason For Referral [...] Problem Acquired hammer toe of right foot (6186825154957 105) Other hammer toe(s) (acquired), right foot (M20.41) Active confirmed Problem Acquired hammer toe of left foot (8586003976590 103) Other hammer toe(s) (acquired), left foot (M20.42) Active confirmed Vital Signs Blood pressure diastolic 85 mm Hg 03/15/2024 Height 6 ft 0 in in 03/15/2024 Blood pressure systolic 150 mm Hg 03/15/2024 Weight 160 lbs 03/15/2024 BMI 21.7 kg/m2 03/15/2024 Encounters Encounter Location Date Provider Diagnosis [facility] [address] [place] [address] 03/15/2024 Akira Baird 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 ; [...] Treatment Pending Test Test Name Order Date 06765-[id number] OF HEMATOMA/FLUID 022 Insurance Providers Payer Name Payer Address Payer Phone Subscriber Number Group Number Insured Name Patient Relationship to Insured Coverage Start Date Coverage End Date Medicare National [facility] [employer] [address] [place] [address] [id number] Olvin Ocasio Self - patient is the insured Medex Blue Shield [address] [place] [address] [id number] Olvin Ocasio Self - patient is the insured Medical (General) History Medical History History ICD Code CAD (Cholesterol) High blood pressure Measles Mumps Chicken pox Surgical History Surgery Date(Month/Year) Hernia Repair 10/2022
== END 2025-03-01 10:27 | disposition home or self-care (01) ==
LOC: HO.HAP 10:26
DX: Z46.1 Encounter for fitting and adjustment of hearing aid (principal); H90.3 Sensorineural hearing loss, bilateral; H61.23 Impacted cerumen, bilateral
CPT/HCPCS: V5267

== ENCOUNTER 2025-05-11 13:19 | Outpatient (REF) | payer MEDICARE, SELFPAY ==
--- OUTSIDE RECORDS SUMMARY | 2025-05-11 14:25 | XMS_ITS | Patient Health Record ---
Author Organization [facility] Address [address] [place] [address] Care Team Providers Care Account Services Representative Name Role Phone Jordan ANGLIN, Clifford Primary Care Provider Akira Land Unavailable [phone] Allergies No Known Allergies Reason For Referral [...] Problem Acquired hammer toe of right foot (2360539272705 105) Other hammer toe(s) (acquired), right foot (M20.41) Active confirmed Problem Acquired hammer toe of left foot (0669722035845 103) Other hammer toe(s) (acquired), left foot (M20.42) Active confirmed Plan Of Treatment Pending Test Test Name Order Date 07806-[id number] OF HEMATOMA/FLUID 022 Insurance Providers Payer Name Payer Address Payer Phone Subscriber Number Group Number Insured Name Patient Relationship to Insured Coverage Start Date Coverage End Date Medicare National Govt Svcs Inc [address] [place] [address] [id number] Olvin Ocasio Self - patient is the insured [employer]ex Blue Shield [address] [place] [address] [phone] [id number] Olvin Ocasio Self - patient is the insured Medical (General) History Medical History History ICD Code CAD (Cholesterol) High blood pressure Measles Mumps Chicken pox Surgical History Surgery Date(Month/Year) Hernia Repair 10/2022
--- OUTSIDE RECORDS SUMMARY | 2025-05-11 14:25 | XMS_ITS | Patient Health Record ---
Author Organization [facility] Address [address] [place] [address] Care Team Providers Care Garnett Feeder Name Role Phone Clifford Ortega MD Primary Care Provider Roopaa Geronimo Jaeger Unavailable [phone] Reason For Referral No Information Medications Medication SIG (Take, Route, Fr equency, Duration) Notes Start Date End Date Status Simvastatin 20 MG 1 tablet in the even ing Orally Once a day; Duration: 30 day(s) Active Immunizations Vaccine Route Administration [...] Problem Status W/U Status Risk Notes Problem Change in bowel habit (13631992) Change in bowel habits (R19.4) Active confirmed Problem Altered bowel function (80034089) Change in bowel function (R19.4) Active confirmed Problem Irritable bowel syndrome (55174504) Irritable bowel syndrome with both constipation and diarrhea (K58.2) Active confirmed Problem Essential hypertension (05203118) Hypertension, unspecified type (I10) Active confirmed Plan Of Treatment Future Test Test Name Order Date COLONOSCOPY 03/09/2019 Insurance Providers Payer Name Payer Address Payer Phone Subscriber Number Group Number Insured Name Patient Relationship to Insured Coverage Start Date Coverage End Date MEDICARE OF [place] [address] [place] [address] [phone] [id number] DENISHA BRIGGS Self - patient is the insured MEDEX ATTN CLAIMS [address] [place] [address] [id number] DENISHA BRIGGS Self - patient is the insured Medical (General) History Medical History History ICD Code Denies PR,DM,CVA,Lung disease,renal dise ase Neg. colonoscopy in [address] Escudero and neg limited colonoscopy/CT colonography with Dr. 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 celiac di sease labs in 2018 Surgical History Surgery Date(Month/Year)
[2025-05-11 14:54] LABS: PSA,Total (Free>4and<10) 8.48 ng/mL (0.00-4.00)
[2025-05-14 12:58] LABS: Free Prostate Spec Ag 0.8 ng/mL; Percent Free Prostate Spec Ag 9 % (calc) (>25)
== END 2025-05-11 13:20 | disposition home or self-care (01) ==
LOC: HO.LAB 13:19
PROVIDERS: Visit Provider Urology
DX: R97.20 Elevated prostate specific antigen [PSA] (principal); Z12.5 Encounter for screening for malignant neoplasm of prostate
CPT/HCPCS: 36415; 84153; 84154

== ENCOUNTER 2025-05-15 09:24 | Outpatient (AMB) | payer MEDICARE, SELFPAY ==
--- NOTE | 2025-05-15 09:40 | A.OFFVIS_ITS ---
Intake Visit Reasons: 6M/PSA Intake Note: Patient is present for 6mo follow up Urology Medication:TAMSULOSIN,FINASTERIDE Antibiotic Allergy:NONE Blood Thinner:NONE Labs done 05/10/25: PSA total 8.48 TODAY'S PVR:0ML'S Molding Cutter Required: No Accompanied by: Self / Same As Patient Allergies No Known Allergies (No Known Allergies*) Allergy (Verified 05/15/25 09:41) HPI Comments Details: Olvin is a very pleasant male. He is a patient of Dr. Ray. He is seen for the following urologic conditions - elevated PSA - lower urinary tract symptoms Six-month follow-up PSA continued to rise from last year whilst on finasteride Plan prostate biopsy PSA 10/02 4.5 11%, 11/03 6.7 9%, 05/05 9.0 9% PVR 30 cc Urinary Symptoms Review - Previous obstruction of urinary flow post-hernia repair. - Currently on tamsulosin for LUTS. - Continues on finasteride for presumed prostate enlargement. Lower urinary tract symptoms Intermittently required tamsulosin Elevated PSA Here for follow-up evaluation of elevated PSA and lower urinary tract symptoms Current therapy finasteride plus tamsulosin PSA 09/02 9.8, 10/01 5.0 12% Reports prior PSAs in the 3-4 range ALEXANDER 1+, soft nodule right base Initial urinary symptoms, is some degree of incomplete bladder emptying and hesitancy, nocturia 2-3 Repeat PSA in 6 months [facility] Medical History Left inguinal hernia (03/26/23) History of urinary frequency Screening for diabetes mellitus Hyperlipidemia RIZWAN on CPAP IBS (irritable bowel syndrome) Dyslipidemia Surgical History History of colonoscopy Family History Father Mental health disorder Mother No problems noted. Social History Housing: House Alcohol intake: current Patient Tobacco Use Status: Former Tobacco user Tobacco use type: Cigarette Years Smoked: 2 years. Over 60 years ago. e-Cigarette/Vaping Use: Never Used Second Hand Smoke Exposure: No service: No Current occupational status: retired Cognitive needs: No Hearing needs: No Vision needs: No Review of Systems Const Denies chills and Denies fever(s) Card Reports no additional complaints and Denies syncope Resp Denies cough GI Denies abdominal pain and Denies heartburn Reports as per HPI and Denies change in libido Neuro Denies syncope Psych Denies change in libido Endo Denies change in libido Physical Exam Const General: cooperative, healthy appearing, comfortable and no acute distress Orientation/consciousness: patient oriented x3 HEENT Face and sinus: Yes normal facial exam Mouth: moist mucous membranes Neck Neck: Yes normal visual inspection, Yes full ROM and Yes trachea midline Chest Chest palpation & inspection: normal inspection of the chest Resp Effort & Inspection: normal respiratory effort, able to speak in complete sentences and no respiratory distress GI Inspection: Yes normal to inspection Back/Spine/Pelvis Cervical Spine: normal cervical lordosis Thoracic/Lumbar Spine: thoracic and lumbar spine normal to inspection Skin General skin exam: no rashes or lesions noted Neuro General: patient oriented x3, gait normal, tone normal and moves all extremities Extrem General: Yes normal to inspection and Yes capillary refill normal Office Procedures Post Void Residual Post Residual Void Post Void Residual (PVR): 0 98494-Rnhr Void Residual by ultrasound Assessment & Plan Assessment & Plan (1) Elevated PSA: Code(s): R97.20 - Elevated prostate specific antigen [PSA] Category: Medical Plan Risks and benefits regarding trans rectal ultrasound with prostate biopsy were discussed. Options of continued surveillance, no treatment and biopsy were offered. The risks include but are not limited to, urinary tract infection, sepsis, difficulty urinating, bleeding into the rectum or bladder that requires intervention and transfusion,and failure to diagnose prostate cancer. The patient understands the options and the risks involved. They wish to proceed. Printed information was provided to ensure he remains off anticoagulation for the appropriate length of time. He may require cardiology or PCP clearance. An antibiotic will be administered prior to, and following the procedure Medications: New levofloxacin take 1 tablet day before procedure, 1 tablet day of procedure and 1 tablet day after procedure 500 mg PO DAILY 3 tabs 0RF 3 days Patient Instructions: This note is constructed using voice recognition software. While every effort has been made to ensure accuracy paper sheeter errors may have been included. Imaging studies, laboratory and physical exam results were discussed and reviewed in detail. No major barriers to patient understanding were identified. An opportunity to ask questions regarding the treatment plan was provided. All questions were answered. The patient expressed understanding and agreement with the above treatment plan. The patient is aware they should contact our office by phone for worsening of their current condition or the appearance of new urologic symptoms. Compliance is encouraged with any medications and followup testing that is ordered. It is a privilege to participate in the urologic care of your patient. If you have any questions or concerns regarding treatment for the above conditions, or other urologic issues, please do not hesitate to contact me. The office telephone contact is [phone]. Sincerely, Dr Domo Perkins MD, [facility] - Urology Compassionate Specialist Care for the Genitourinary System Coding Level of Care Code Est Pt Level 4 (59023) Diagnoses Elevated PSA R97.20 CPT Codes Post Residual Void - PVR CPT Code: 65103-Titl Void Residual by ultrasound ([id number])
--- OUTSIDE RECORDS SUMMARY | 2025-05-15 10:22 | XMS_ITS | Patient Health Record ---
Author Organization [facility] Address [address] [place] [address] Care Team Providers Care Sales Associate Fishing Name Role Phone Jordan ANGLIN, Clifford Primary Care Provider Akira Land Unavailable [phone] Allergies No Known Allergies Reason For Referral [...] Problem Acquired hammer toe of right foot (9379399617250 105) Other hammer toe(s) (acquired), right foot (M20.41) Active confirmed Problem Acquired hammer toe of left foot (3507423767673 103) Other hammer toe(s) (acquired), left foot (M20.42) Active confirmed Plan Of Treatment Pending Test Test Name Order Date 35037-[id number] OF HEMATOMA/FLUID 022 Insurance Providers Payer Name Payer Address Payer Phone Subscriber Number Group Number Insured Name Patient Relationship to Insured Coverage Start Date Coverage End Date Medicare National Govt Svcs Inc [address] [place] [address] [id number] Olvin Ocasio Self - patient is the insured [employer] Blue Shield [address] [place] [address] [id number] Olvin Ocasio Self - patient is the insured Medical (General) History Medical History History ICD Code CAD (Cholesterol) High blood pressure Measles Mumps Chicken pox Surgical History Surgery Date(Month/Year) Hernia Repair 10/2022
--- OUTSIDE RECORDS SUMMARY | 2025-05-15 10:23 | XMS_ITS | Patient Health Record ---
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) Active confirmed Problem Essential hypertension (79681430) Hypertension, unspecified type (I10) Active confirmed Plan Of Treatment Future Test Test Name Order Date COLONOSCOPY 03/09/2019 Insurance Providers Payer Name Payer Address Payer Phone Subscriber Number Group Number Insured Name Patient Relationship to Insured Coverage Start Date Coverage End Date MEDICARE OF [place] [address] [place] [address] [id number] DENISHA BRIGGS Self - patient is the insured MEDEX ATTN CLAIMS [address] [place] [address] [phone] [id number] DENISHA BRIGGS Self - patient is the insured Medical (General) History Medical History History ICD Code Denies MT,DM,CVA,Lung disease,renal dise ase Neg. colonoscopy in [address] Escudero and neg limited colonoscopy/CT colonography with Dr. 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 celiac di sease labs in 2018 Surgical History Surgery Date(Month/Year)
== END 2025-05-15 10:17 | disposition home or self-care (01) ==
LOC: HO.HUSH 09:24
PROVIDERS: Visit Provider Urology
DX: R97.20 Elevated prostate specific antigen [PSA] (principal)
CPT/HCPCS: 99214

== ENCOUNTER → 2025-05-15 09:24 | Outpatient (BNVA) | payer MEDICARE, SELFPAY | PROVIDERS: Visit Provider Urology | DX: R97.20 Elevated prostate specific antigen [PSA] (principal); R35.1 Nocturia; R33.9 Retention of urine, unspecified; R39.11 Hesitancy of micturition | CPT/HCPCS: 51798; 99212 ==

== ENCOUNTER 2025-05-29 08:00 | Outpatient (REF) | payer MEDICARE, SELFPAY ==
--- NOTE | 2025-05-29 08:41 | W.PM.OPN ---
Operative Note Operative Note Date of Service: 05/29/25 Narrative: Preoperative diagnosis: Elevated PSA Postoperative diagnosis: Elevated PSA Procedure: 1. transrectal ultrasound measurement of prostate 2. transrectal ultrasound-guided pudendal nerve block 3. transrectal ultrasound-guided prostate biopsy 12 core Surgeon: Dr. Domo Perkins Anesthetic: 10cc 1% lidocaine Indications for procedure: Elevated PSA - 8.5 9% Counselling: Technical aspects, risks and benefits of proposed procedure were discussed in full. All questions have been answered, written consent has been obtained and patient agrees to proceed. Procedure: The patient was brought into the procedure area and placed in a left lateral decubitus position. Patient identity confirmed. Perioperative antibiotics confirmed. Safety pause time out performed. ALEXANDER was performed to dilate rectal sphincter Iodine 10cc with 60 cc gel was placed per rectum to reduce infection risk using a catheter tip syringe. 8 Hz Niles rectal end-fire ultrasound probe was placed transrectally without difficulty. The prostate was visualized. Seminal vesicles were normal. Prostate margins were clearly demarcated. Bladder was seen superiorly. No cystic structures were noted No calcifications were noted at the surgical margin The prostate was otherwise homogeneous in nature The prostate was measured in 3 dimensions Prostatic Width: 3.5 cm Prostatic Height: 3.5 cm Urethral Length: 5.2 cm Total volume equals : 33 ml An ultrasound-guided pudendal nerve block was performed using a 22 gauge spinal needle in the sagittal plane. 4 cc of 1% lidocaine placed at the junction of each seminal vesicle and 2 cc placed at the apex of the prostate. A 12 core biopsy was performed with 6 cores each side using an 18 gauge prostate biopsy gun. Two cores each were taken at the prostate apex, mid and base on each side. Cores were spaced between lateral and medial aspects. Each core was examined as placed on specimen foam as part of quality control engineering technician to ensure a minimum 1 cm of length and minimal discontinuity. He tolerated the procedure well with minimal rectal bleeding. Blood pressure remained stable following procedure. He was able to ambulate to bathroom after 5 minutes. Printed instructions regarding antibiotic use and common adverse events from the procedure such as low-grade temperature, potential infection and bleeding were given. He understands to call the office or go to an emergency room should any of these events arise. Pathology: 12 core prostate biopsy. CPT code 42940: Transrectal ultrasound; this is a diagnostic test for evaluation of the prostate and surrounding structures, looking for abnormalities or suspicious areas worrisome for cancer CPT code 24692: Biopsy, prostate; needle or punch, single or multiple, any approach CPT code 87290: Ultrasonic guidance for needle placement (eg, biopsy, aspiration, injection, localization device), imaging supervision and interpretation
[2025-05-29] MEDS: Lidocaine HCl 1 % MPF 5 ML VIAL 10 ML SUBCUT (09:05)
== END 2025-05-29 08:01 | disposition home or self-care (01) ==
LOC: HO.US 08:00
PROVIDERS: Visit Provider Urology
DX: R97.20 Elevated prostate specific antigen [PSA] (principal)
CPT/HCPCS: 55700; 76942; 88305; 88344; J2003

== ENCOUNTER → 2025-05-29 08:00 | Outpatient (BNV) | payer MEDICARE, SELFPAY | PROVIDERS: Visit Provider Urology | DX: R97.20 Elevated prostate specific antigen [PSA] (principal) | CPT/HCPCS: 55700; 76872; 76942 ==

== ENCOUNTER 2025-06-05 09:29 | Outpatient (AMB) | payer MEDICARE, SELFPAY ==
--- NOTE | 2025-06-05 09:40 | MHC.PC.OV ---
Vital Signs 06/05/25 09:41 Height 5 ft 10 in Weight 168 lb 8 oz BMI 24.2 BP 122/64 Blood Pressure Location Lt brachial Position Sitting Pulse 60 Pulse Source Pulse Oximeter Temp 97.3 F Temp Source Temporal Artery Scan Pulse Oximetry (%) 95 Oxygen Delivery Method Room Air Intake Visit Reasons: htn/hld/rizwan/anema Physical Aerodynamicist Required: No Accompanied by: Self / Same As Patient Allergies No Known Allergies (No Known Allergies*) Allergy (Verified 06/05/25 09:48) Medication List - Last Reconciled 06/05/25 by DON Vo finasteride 5 mg PO DAILY 90 days simvastatin 20 mg PO DAILY Tobacco use date assessed: 06/05/25 Fall risk assessment: No Falls in past year Last assessed Fall Risk: 06/05/25 Dental Screening Dental Screen Date: 06/05/25 Did you have a dental visit in the last 12 months?: Yes Did you have a dental problem in the last 6 months where you did not have access to dental care?: No Was dental information given to patient?: Patient has dentist HPI HPI Comments History of Present Illness Details The patient is an 84-year-old individual presenting for a follow-up visit for management of chronic conditions and review of laboratory results. The patient's lab work shows a stable, mild anemia. Kidney function is good. The patient's LDL cholesterol is 110. Initial pulse check showed a slow heart rate, but a manual check during the visit was better than the recorded reading of 43 readings shown on pulse oximetry. The patient reports intermittent abdominal pain and a long-standing change in stool shape since a surgical repair about 20 years ago, describing the stools as looking like a comma. The patient has a bowel movement almost every day, is not significantly constipated, and reports stools are not hard. The patient takes MiraLax once a day to manage bowel habits. The patient is undergoing urological evaluation for the prostate after a test result was high. A biopsy was performed last week with results pending, and a follow-up with Urology is scheduled for next week. Health Maintenance - Prostate cancer screening: The patient has had a recent prostate biopsy due to an elevated marker and is awaiting results. - Lab monitoring: Recent labs for anemia and hyperlipidemia were reviewed. Social History Results - Complete Blood Count: Shows stable, mild anemia. - Comprehensive Metabolic Panel: Kidney function is good. - Glucose was elevated, but on a likely non-fasting sample. - Lipid Panel: LDL cholesterol is 110. - Urinalysis: Results are good. - pulse oximetry check: An external monitor showed a heart rate of 43, which was determined to be a likely machine error upon manual evaluation. - Prostate Biopsy: Samples were taken last week; results are pending. [facility] Medical History Left inguinal hernia (03/26/23) History of urinary frequency Screening for diabetes mellitus Hyperlipidemia RIZWAN on CPAP IBS (irritable bowel syndrome) Dyslipidemia Surgical History History of colonoscopy Family History Father Mental health disorder Mother No problems noted. Social History Housing: House Alcohol intake: current Patient Tobacco Use Status: Former Tobacco user Tobacco use type: Cigarette Years Smoked: 2 years. Over 60 years ago. e-Cigarette/Vaping Use: Never Used Second Hand Smoke Exposure: No service: No Current occupational status: retired Cognitive needs: No Hearing needs: No Vision needs: No Questionnaire PHQ-9 Over the last 2 weeks, how often have you been bothered by any of the following problems? 1. Little interest or pleasure in doing things: nearly every day 2. Feeling down, depressed, or hopeless: nearly every day 3. Trouble falling or staying asleep, or sleeping too much: not at all 4. Feeling tired or having little energy: nearly every day 5. Poor appetite or overeating: not at all 6. Feeling bad about yourself - or that you are a failure or have let yourself or your family down: not at all 7. Trouble concentrating on things, such as reading the newspaper or watching television: more than half the days 8. Moving or speaking so slowly that other people could have noticed. Or the opposite - being so fidgety or restless that you have been moving around a lot more than usual: more than half the days 9. Thoughts that you would be better off or of hurting yourself in some way: not at all Total score: 13 Depression Screening Interpretation: Positive Depression Screening Done: Yes Source: Developed by Drs. Geronimo Garcia, Cortney Mathis, Santana Jaime and colleagues, with an educational germain from [employer]. Thrive Questionnaire Date Thrive assessed: 01/31/25 I am a: Patient What is your living situation today?: I have a steady place to live Within the past 12 months, did the food you bought not last and you didn't have the money to get more?: Never true Within the past 12 months, did you worry whether your food would run out before you got money to buy more?: Never true Do you have trouble paying for medicines?: No Do you have trouble getting transportation to medical appointments?: No Do you have trouble paying your heating and electricity bill?: No Do you have trouble taking care of your child, family member or friend?: No Do you have trouble with day-to-day activities such as bathing, preparing meals, shopping, managing finances, etc.?: No Are you currently unemployed and looking for a job?: No Are you interested in more education?: No THRIVE Score: 0 AUDIT C Alcohol Use Questionnaire (AUDIT-C) 1. How often do you have a drink containing alcohol?: Never Total Score: 0 GUERRERO-7 AMB Questionnaire GUERRERO-7 Date GUERRERO - 7 assessed: 01/31/25 Feeling nervous, anxious, or on edge: 1 = Several days Not being able to stop or control worryin = Not at all Worrying too much about different things: 0 = Not at all Trouble relaxin = Not at all Being so restless that it is hard to sit still: 0 = Not at all Becoming easily annoyed or irritable: 0 = Not at all Feeling afraid as if something awful might happen: 0 = Not at all Total GUERRERO-7 score (0-4 normal; 5-9 mild; 10-14 moderate; 15-21 severe): 1 Source: Developed by Drs. Geronimo Garcia, Santana Franks and colleagues, with an educational germain from [employer]. Review of Systems Narrative Review of Systems - Cardiovascular: Denies chest pain or palpitations. - Respiratory: Denies shortness of breath. - Gastrointestinal: Reports intermittent abdominal pain. - Reports altered stool shape, noting it looks like a comma. - Bowel habits are generally daily. - Denies significant constipation. - Genitourinary: Acknowledges ongoing evaluation for a prostate issue, with a biopsy performed last week. Const Reports fatigue and Denies headache(s) Eyes Denies loss of vision ENT Denies vertigo, Denies dizziness, Denies headache(s) and Denies sore throat Card Denies chest pain, Denies leg edema and Denies lightheadedness Resp Denies cough, Denies hemoptysis and Denies wheezing GI Reports abdominal pain (Infrequently), Denies melena, Reports bloating, Reports constipation (On and off), Reports heartburn, Reports diarrhea (On and off) and Denies vomiting Denies dysuria, Reports nocturia and Denies urinary urgency Musc Denies arthralgias, Denies joint swelling, Denies numbness and Denies tingling Skin/Breast Reports other (Bruised appearing areas to forearm) Neuro Denies Abnormal speech present, Denies behavioral changes, Denies vertigo, Denies dizziness, Denies headache(s), Denies loss of vision, Denies memory loss, Denies numbness and Denies tingling Psych Denies anxiety, Denies behavioral changes, Denies depression, Denies memory loss and Denies panic attacks Endo Reports fatigue Herman/Lymph Denies easy bleeding and Denies easy bruising Aller/Immun Denies wheezing Physical exam (Primary Care) Vital Signs: Last Vital Signs Temp 97.3 F 06/05/25 09:41 Pulse 60 06/05/25 09:41 BP 122/64 06/05/25 09:41 Pulse Ox 95 06/05/25 09:41 Oxygen Delivery Method Room Air 06/05/25 09:41 BMI result Body Mass Index 24.2 Tobacco/Smoking Status: Tobacco use Status Tobacco use date assessed 06/05/25 06/05/25 09:41 Patient Tobacco Use Status Former Tobacco user 06/05/25 09:41 Tobacco use type Cigarette 06/05/25 09:41 e-Cigarette/Vaping Use Never Used 06/05/25 09:41 PHQ-9: PHQ-9 Score PHQ-9: Total score 13 06/05/25 09:50 Depression Screening Interpretation: Positive Thrive Assessment: Date of Thrive Assessment Date Thrive assessed 01/31/25 06/05/25 09:41 Narrative Physical Exam Vitals: Heart rate was noted on a machine to be 43, but upon manual check, it was found to be much better. Lungs: Breath sounds are good. Const General: healthy appearing, no acute distress, alert and awake Nutritional Appearance: well nourished Orientation/consciousness: oriented to person, oriented to place and oriented to time HENMT Ears: TM's normal bilaterally General nose exam: Normal nasal mucous membranes and turbinates present Eyes Conjunctivae: conjunctivae normal Sclerae: sclerae normal Pupils: Equal, round and reactive pupils present Neck Neck: Yes no lymphadenopathy and Yes no JVD Thyroid: Thyroid normal Carotids: no bruits Resp Effort & Inspection: normal respiratory effort and not tachypneic Auscultation: no crackles, no rales, no rhonchi and no wheezes Cardio Rate: regular rate Rhythm: regular rhythm Heart sounds: no murmurs and normal S1 and S2 GI Palpation (GI): Soft to palpation, nontender, no hepatomegaly and no splenomegaly Auscultation: normal bowel sounds General: Yes no CVA tenderness Back/Spine/Pelvis Back: no CVA tenderness Skin General skin exam: dry skin and other (Purpura to bilateral forearms) Neuro General: oriented to person, oriented to place and oriented to time Cranial nerves: Yes Equal, round and reactive pupils present Speech: No Abnormal speech present Gait exam (Neuro): Normal gait present Motor exam (neuro): no tremor noted Extrem Right upper extremity: full ROM Left upper extremity: full ROM Right lower extremity: full ROM; no edema Left lower extremity: full ROM; no edema Psych Mental Status: mental status grossly normal Speech and movement: Normal speech and movement present Affect: normal affect Attitude: cooperative Thought process: Normal thought process present Results Reviewed Results Reviewed: Laboratory Tests 02/21/25 02/21/25 05/11/25 15:44 15:46 13:40 WBC 4.2 L RBC 4.14 L Hgb 13.5 L Hct 39.4 L MCV 95.2 MCH 32.6 MCHC 34.3 RDW 13.2 Plt Count 179 Sodium 140 Potassium 4.2 Chloride 107 Carbon Dioxide 25 Anion Gap 12 BUN 19 H Creatinine 1.13 Estimated GFR > 60 Fasting Glucose 113 H Calcium 9.3 Iron 81 TIBC 223 L % Saturation 36 Unsat Iron Binding 142 Total Bilirubin 0.6 AST 31 ALT 21 Alkaline Phosphatase 53 Total Protein 7.3 Albumin 4.6 Triglycerides 48 Cholesterol 174 LDL Cholesterol, Calc 110 H HDL Cholesterol 55 Free PSA % Free PSA Total PSA 8.48 H Total PSA (off-site) Vitamin B12 428 25-OH Vitamin D Total 31.7 Folate 12.8 TSH 1.95 Urine Color Dark Yellow Urine Appearance Clear Urine pH 6.0 Ur Specific [place] 1.020 Urine Protein Negative Urine Glucose (UA) Negative Urine Ketones Trace Urine Blood Negative Urine Nitrite Negative Ur Leukocyte Esterase Trace H Urine RBC 0-2 Urine WBC 0-5 Ur Squamous Epith Cells 0-2 Urine Bacteria None Seen Hyaline Casts 0-2 05/11/25 14:54 WBC RBC Hgb Hct MCV MCH MCHC RDW Plt Count Sodium Potassium Chloride Carbon Dioxide Anion Gap BUN Creatinine Estimated GFR Fasting Glucose Calcium Iron TIBC % Saturation Unsat Iron Binding Total Bilirubin AST ALT Alkaline Phosphatase Total Protein Albumin Triglycerides Cholesterol LDL Cholesterol, Calc HDL Cholesterol Free PSA 0.8 % Free PSA 9 L Total PSA Total PSA (off-site) 9.0 H Vitamin B12 25-OH Vitamin D Total Folate TSH Urine Color Urine Appearance Urine pH Ur Specific [place] Urine Protein Urine Glucose (UA) Urine Ketones Urine Blood Urine Nitrite Ur Leukocyte Esterase Urine RBC Urine WBC Ur Squamous Epith Cells Urine Bacteria Hyaline Casts Coding Level of Care Code Est Pt Level 4 (89734) Diagnoses Hypertension, unspecified type I10 Hypertension type: unspecified Hyperlipidemia, unspecified hyperlipidemia type E78.5 Hyperlipidemia type: unspecified Irritable bowel syndrome, unspecified type K58.9 Irritable bowel syndrome type: unspecified Elevated PSA R97.20 RIZWAN on CPAP G47.33; Z99.89 Time Spent (min) 39 Assessment & Plan Assessment & Plan (1) Hypertension: Code(s): I10 - Essential (primary) hypertension Category: Medical Qualifiers: Hypertension type: unspecified Qualified Code(s): I10 - Essential (primary) hypertension (2) Hyperlipidemia: Code(s): E78.5 - Hyperlipidemia, unspecified Category: Medical Qualifiers: Hyperlipidemia type: unspecified Qualified Code(s): E78.5 - Hyperlipidemia, unspecified (3) IBS (irritable bowel syndrome): Code(s): K58.9 - Irritable bowel syndrome, unspecified Category: Medical Qualifiers: Irritable bowel syndrome type: unspecified Qualified Code(s): K58.9 - Irritable bowel syndrome, unspecified (4) Elevated PSA: Code(s): R97.20 - Elevated prostate specific antigen [PSA] Category: Medical (5) RIZWAN on CPAP: Comment: RIZWAN, 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 Sleep quality much improved , with use of CPAP . Has problem with the humidification. Code(s): G47.33 - Obstructive sleep apnea (adult) (pediatric); Z99.89 - Dependence on other enabling machines and devices Category: Medical Plan Plan Patient was informed and verbally consented to the use of an ambient scribe for clinic note documentation during this visit. 1. Hyperlipidemia The patient's LDL cholesterol is 110. To lower this value, the dose of simvastatin will be increased to 40 mg daily. The patient was instructed to take two of the current 20 mg tablets until the 40 mg prescription is filled. Labs will be repeated in 4 months. 2. IBS The patient reports comma-shaped stools and uses MiraLax once a day. The patient will increase MiraLax to two times a day and will also start taking Colace, a stool softener, once a day to help with bowel excretion. A prescription will be sent for MiraLax to assess for insurance coverage; if not covered, the patient will continue to purchase it over the counter. 3. Anemia The patient has a stable, mild anemia. The plan is to monitor this, with repeat lab work scheduled in 4 months. 4. Elevated Prostate-Specific Antigen The patient is under the care of a urologist for an elevated PSA and recently underwent a prostate biopsy. The patient will follow up with the specialist next week to review the results. 5. Bradycardia A prior machine reading indicated a heart rate of 43, but manual assessment during the visit showed a normal rate, suggesting a machine error. Given the patient denies symptoms such as chest pain or palpitations, no further workup is planned at this time. 6. HTN BP 122/64-systolic goal less than 130 mm Hg Reinforced low-salt diet and activity as tolerated 7. RIZWAN Continue CPAP Discussion Notes I reviewed the patient's recent lab results, noting the stable mild anemia, good kidney function, and an LDL cholesterol of 110. I recommended increasing the simvastatin dose to 40 mg to further lower the cholesterol and provided instructions on how to manage the dosage until the new prescription is filled. We discussed the patient's long-standing altered bowel habits and current regimen of MiraLax. I recommended adding Colace once daily to soften the stool and will attempt to prescribe MiraLax to see if insurance will provide coverage. I reassured the patient that the slow heart rate reported by a machine was likely an error, as my manual check confirmed a normal rate and the patient is asymptomatic. We also acknowledged the patient's pending prostate biopsy results and the importance of the scheduled follow-up with the urologist. A follow-up visit with repeat labs is planned for 4 months. Patient Instructions - Increase your cholesterol medication, simvastatin, to 40 mg daily. - Until your new prescription is ready, take two of your current 20 mg pills once a day. - Increase MiraLax to twice a day. - Start taking Colace, a stool softener, once a day. - Make sure to keep your appointment with the prostate specialist next week to discuss your test results. - We will schedule you for a follow-up visit and repeat blood tests in four months. Orders: Orders Complete Blood Count Auto Diff 4 Months E78.5 - Hyperlipidemia, unspecified, G47.33 - Obstructive sleep apnea (adult) (pediatric), I10 - Essential (primary) hypertension, K58.9 - Irritable bowel syndrome, unspecified, Z99.89 - Dependence on other enabling machines and devices Comprehensive [place]. Panel Fast 4 Months E78.5 - Hyperlipidemia, unspecified, G47.33 - Obstructive sleep apnea (adult) (pediatric), I10 - Essential (primary) hypertension, K58.9 - Irritable bowel syndrome, unspecified, Z99.89 - Dependence on other enabling machines and devices Vitamin D 25-OH Total 4 Months E78.5 - Hyperlipidemia, unspecified, G47.33 - Obstructive sleep apnea (adult) (pediatric), I10 - Essential (primary) hypertension, K58.9 - Irritable bowel syndrome, unspecified, Z99.89 - Dependence on other enabling machines and devices UA CC w/rflx Micro + Cult 4 Months E78.5 - Hyperlipidemia, unspecified, G47.33 - Obstructive sleep apnea (adult) (pediatric), I10 - Essential (primary) hypertension, K58.9 - Irritable bowel syndrome, unspecified, Z99.89 - Dependence on other enabling machines and devices TSH reflex Free T4 4 Months E78.5 - Hyperlipidemia, unspecified, G47.33 - Obstructive sleep apnea (adult) (pediatric), I10 - Essential (primary) hypertension, K58.9 - Irritable bowel syndrome, unspecified, Z99.89 - Dependence on other enabling machines and devices Hemoglobin A1c 4 Months E78.5 - Hyperlipidemia, unspecified, G47.33 - Obstructive sleep apnea (adult) (pediatric), I10 - Essential (primary) hypertension, K58.9 - Irritable bowel syndrome, unspecified, Z99.89 - Dependence on other enabling machines and devices Lipid Panel 4 Months E78.5 - Hyperlipidemia, unspecified, G47.33 - Obstructive sleep apnea (adult) (pediatric), I10 - Essential (primary) hypertension, K58.9 - Irritable bowel syndrome, unspecified, Z99.89 - Dependence on other enabling machines and devices Medications: New polyethylene glycol 3350 (Miralax) 17 grams PO BID 238 grams 3RF simvastatin 40 mg PO BEDTIME 90 tabs 3RF docusate sodium (Colace) 100 mg PO DAILY 90 caps 3RF Discontinued simvastatin Discontinued Reason: Duplicate 20 mg PO DAILY 90 tabs 2RF
[2025-06-05 09:41] VITALS: BP 122/64; PULSE 60; TEMP 36.3; O2SAT 95; BMI 24.2
--- OUTSIDE RECORDS SUMMARY | 2025-06-05 10:54 | XMS_ITS | Clinical Summary ---
Author Organization [facility] Address [address] [place] [address] [address] [place] [address] Care Team Providers Care Whipped Topping Mixer Name Role Phone Unavailable Primary Care Provider Unavailabl e Encounters Date Type Department Care Team Description 04/19/2025 11:05 AM EDT Immunization [facility] [address] [place] [address] Philomena Navarro RN Encounter for immunization from Last 3 Months Immunizations Immunization Administration Dates Next Due Influenza, High Dose Seasona l, Preservative Free 04/19/2025 Influenza, seasonal, injecta ble, preservative free 04/04/2024 Pfizer Covid-19 Vaccine 12+ 04/19/2025,,03/29/2024 Social History Tobacco Use Types Packs/Day Years [...] - 1-dose 75+ series) 12/07/2015 COVID-19 Vaccine ( season) 2025 04/19/2025, 10/03/2024, 03/29/2024, Additional history exists Pneumococcal Vaccine: 50+ Years Completed 05/06/2018, 10/21/2016 Influenza Vaccine Completed 04/19/2025, , 05/05/2023, Additional history exists HIB Vaccines Aged Out [...] age to complete this topic Insurance MEDICARE [facility] [employer] MEDICARE SUPPLEMENT
== END 2025-06-05 10:24 | disposition home or self-care (01) ==
LOC: HO.HMCH 09:30
DX: I10 Essential (primary) hypertension (principal); E78.5 Hyperlipidemia, unspecified; K58.9 Irritable bowel syndrome, unspecified; R97.20 Elevated prostate specific antigen [PSA]; G47.33 Obstructive sleep apnea (adult) (pediatric); Z99.89 Dependence on other enabling machines and devices

== ENCOUNTER → 2025-06-05 09:29 | Outpatient (BNVA) | payer MEDICARE, SELFPAY | DX: I10 Essential (primary) hypertension (principal); E78.5 Hyperlipidemia, unspecified; K58.9 Irritable bowel syndrome, unspecified; R97.20 Elevated prostate specific antigen [PSA]; Z99.89 Dependence on other enabling machines and devices | CPT/HCPCS: 99212 ==

== ENCOUNTER 2025-06-14 09:53 | Outpatient (AMB) | payer MEDICARE, SELFPAY ==
[2025-06-14 10:06] VITALS: BP 120/52; PULSE 69; O2SAT 97; BMI 24.5
--- NOTE | 2025-06-14 10:06 | A.OFFVIS_ITS ---
Vital Signs 06/14/25 10:06 Height 5 ft 10 in Weight 170 lb 13.732 oz BMI 24.5 BP 120/52 L Blood Pressure Location Lt brachial Position Sitting Pulse 69 Pulse Source Pulse Oximeter Pulse Oximetry (%) 97 Oxygen Delivery Method Room Air Intake Visit Reasons: rizwan Intake Note: pt is here for follow up and states he is doing well. 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 He has been using CPAP for many years, and sleeping okay. He gets good sleep for about 6 hours every night and remains refreshed during the whole day. There is some air leak issue but that can not be completely resolved due to the shape of the face. We did discuss about various models of the masks and gears . * Says that they have a great grand daughter( In [place] ) , and have not seen her yet. FORMERLY [facility], [facility] Medical History Left inguinal hernia (03/26/23) History of urinary frequency Screening for diabetes mellitus Hyperlipidemia RIZWAN on CPAP IBS (irritable bowel syndrome) Dyslipidemia Surgical History History of colonoscopy Family History Father Mental health disorder Mother No problems noted. Social History Housing: House Alcohol intake: current Patient Tobacco Use Status: Former Tobacco user Tobacco use type: Cigarette Years Smoked: 2 years. Over 60 years ago. e-Cigarette/Vaping Use: Never Used Second Hand Smoke Exposure: No service: No Current occupational status: retired Cognitive needs: No Hearing needs: No Vision needs: No Review of Systems Const All systems reviewed & are unremarkable except as noted in HPI and below Eyes Reports no additional complaints ENT Reports nasal congestion (Mild intermittent.) Card Denies chest pain, Denies irregular heart rhythm, Denies leg edema and Denies dyspnea Resp Reports no additional complaints, Denies cough, Denies dyspnea and Denies wheezing GI Reports no additional complaints Reports no additional complaints Musc Reports no additional complaints Skin/Breast Reports system reviewed and no additional complaints, except as documented Neuro Reports no additional complaints Psych Reports no additional complaints Aller/Immun Denies wheezing Physical Exam Vital Signs: Last Vital Signs Pulse 69 06/14/25 10:06 BP 120/52 L 06/14/25 10:06 Pulse Ox 97 06/14/25 10:06 Oxygen Delivery Method Room Air 06/14/25 10:06 BMI result Body Mass Index 24.5 Const General: healthy appearing, comfortable, no acute distress, alert and awake Orientation/consciousness: patient oriented x3 HEENT Head: Yes normal to inspection General nose exam: No nasal polyps present and No nasal discharge present Face and sinus: Yes sinuses nontender Mouth: oropharynx normal Teeth and gingiva: other (He has chronic Retroganathia of the lower jaw.) Throat: Yes posterior oropharynx normal Eyes General: appearance normal, both eyes and all related structures Neck Neck: Yes normal visual inspection, Yes no lymphadenopathy, Yes trachea midline and Yes no JVD Thyroid: Thyroid normal Chest Chest palpation & inspection: normal inspection of the chest, normal palpation of entire chest wall and no tenderness Resp Effort & Inspection: normal respiratory effort Auscultation: clear to auscultation bilaterally Percussion: percussion normal Cardio Palpation: normal PMI Rate: regular rate Rhythm: regular rhythm Heart sounds: no gallops and no murmurs Peripheral pulses: Peripheral pulses 2+ throughout GI Palpation (GI): Soft to palpation, nontender, No hepatosplenomegaly present and no masses Auscultation: normal bowel sounds Back/Spine/Pelvis Thoracic/Lumbar Spine: thoracic and lumbar spine normal to inspection Skin General skin exam: no rashes or lesions noted Neuro General: patient oriented x3 and no focal motor deficits Cranial nerves: Yes CN's II-XII intact bilaterally Extrem General: Yes normal to inspection, Yes no clubbing, cyanosis or edema and Yes no calf tenderness Psych Appearance: grossly normal and well kempt Speech and movement: Normal speech and movement present Results Reviewed Results Reviewed: Compliance report for the last 30 nights is reviewed. He has used 29/30 nights, 97%. Average use it per night 5 hours 51 minutes. There is moderate degree of air leak. Residual AHI 3.4 probably related to air leak Assessment & Plan Assessment & Plan (1) RIZWAN on CPAP: Comment: RIZWAN, 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 Sleep quality much improved , with use of CPAP . Has problem with some Air leak. as he cannot get a good seal . But getting good results Code(s): G47.33 - Obstructive sleep apnea (adult) (pediatric); Z99.89 - Dependence on other enabling machines and devices Category: Medical Plan: Explained about his compliance which is excellent, Explained about the leak issue, which probably would not be solved be due to his facial shape. However he is given the telephone number of his DME provider, and he can call and make an appointment to have proper mask fitting session. After thinking he say is he is satisfied with what he has at this time. Coding Level of Care Code Est Pt Level 3 (07302) Diagnoses RIZWAN on CPAP G47.33; Z99.89
--- OUTSIDE RECORDS SUMMARY | 2025-06-14 11:34 | XMS_ITS | Clinical Summary ---
Author Organization [employer] Address [address] [place] [address] 7 [place] [address] Care Team Providers Care Radiation Oncology Manager Name Role Phone Unavailable Primary Care Provider Unavailabl e Encounters Date Type Department Care Team Description 04/19/2025 11:05 AM EDT Immunization [facility] [address] [place] [address] Philomena Navarro RN Encounter for immunization from [...] age to complete this topic Insurance MEDICARE [facility] MEDEX MEDICARE SUPPLEMENT
--- OUTSIDE RECORDS SUMMARY | 2025-06-14 11:34 | XMS_ITS | Patient Health Record ---
Author Organization [facility] Address [address] [place] [address] Care Team Providers Care Extractor Machine Operator Name Role Phone Clifford Ortega MD Primary Care Provider Unavaila Geronimo Jaeger Unavailable [phone] Reason For Referral No Information Medications Medication SIG (Take, Route, Frequency, Duration) Notes Start Date End Date Status Simvastatin 20 MG Tablet 1 tablet in the evening Orally Once a day; Duration: 30 day(s) Active Immunizations Vaccine Route Administration Date Status Comme nts Influenza Unknown 05/12/2018 Administered Influenza Unknown 04/18/2019 Administered Influenza Unknown 04/24/2020 Administered Social History Tobacco Use: Social History Observation Description Date Details (start date - stop date) Former Smoker NA - NA Social History Drugs/Alcohol: Social Info Question Answer Notes Alcohol Screen Did you have a drink containing alcohol in the past year? No Points 0 Interpretation Negative Tobacco Use: Social Info Question Answer Notes Tobacco Use/Smoking Patient is a former smoker How long has it been since you last smoked? > 10 years Additional Details Category Social Info Options Details Miscellaneous: Marital status: Occupation: retired Section Notes: Nonsmoker; no sig alcohol Nonsmoker; no sig alcohol Nonsmoker; no sig alcohol Problems Problem Type SNOMED Code ICD Code Onset Dates Problem Status W/U Status Risk Notes Problem Change in bowel habit (08788439) Change in bowel habits (R19.4) Active confirmed Problem Altered bowel function (40003931) Change in bowel function (R19.4) Active confirmed Problem Irritable bowel syndrome (86848624) Irritable bowel syndrome with both constipation and diarrhea (K58.2) Active confirmed Problem Essential hypertension (55461809) Hypertension, unspecified type (I10) Active confirmed Plan Of Treatment Future Test Test Name Order Date COLONOSCOPY 03/09/2019 Insurance Providers Payer Name Payer Address Payer Phone Subscriber Number Group Number Insured Name Patient Relationship to Insured Coverage Start Date Coverage End Date MEDICARE OF [place] [address] [place] [id number] DENISHA BRIGGS Self - patient is the insured MEDEX ATTN CLAIMS [address] [place] [address] [phone] [id number] DENISHA BRIGGS Self - patient is the insured Medical (General) History Medical History History ICD Code Denies [place],DM,CVA,Lung disease,renal dise ase Neg. colonoscopy in [address] Escudero and neg limited colonoscopy/CT colonography with Dr. 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 celiac di sease labs in 2019 Surgical History Surgery Date(Month/Year)
--- OUTSIDE RECORDS SUMMARY | 2025-06-14 11:34 | XMS_ITS | Patient Health Record ---
[facility] Address [address] [place] [address] Care Team Providers Care Lumber Straightener Name Role Phone Jordan ANGLIN, Clifford Primary Care Provider Akira Land Unavailable [phone] Allergies No Known Allergies Reason For Referral [...] Problem Acquired hammer toe of right foot (2085153949480 105) Other hammer toe(s) (acquired), right foot (M20.41) Active confirmed Problem Acquired hammer toe of left foot (0707813556981 103) Other hammer toe(s) (acquired), left foot (M20.42) Active confirmed Plan Of Treatment Pending Test Test Name Order Date [id number] OF HEMATOMA/FLUID 022 Insurance Providers Payer Name Payer Address Payer Phone Subscriber Number Group Number Insured Name Patient Relationship to Insured Coverage Start Date Coverage End Date Medicare National Govt Svcs Inc [address] [place] [address] [id number] Olvin Ocasio Self - patient is the insured Medex Blue Shield [address] [place] [address] [phone] [id number] Olvin Ocasio Self - patient is the insured Medical (General) History Medical History History ICD Code CAD (Cholesterol) High blood pressure Measles Mumps Chicken pox Surgical History Surgery Date(Month/Year) Hernia Repair 10/2022
== END 2025-06-14 10:43 | disposition home or self-care (01) ==
LOC: HO.HPS 09:54
PROVIDERS: Visit Provider Internal Medicine
DX: G47.33 Obstructive sleep apnea (adult) (pediatric) (principal); Z99.89 Dependence on other enabling machines and devices
CPT/HCPCS: 99213

== ENCOUNTER → 2025-06-14 09:53 | Outpatient (BNVA) | payer MEDICARE, SELFPAY | PROVIDERS: Visit Provider Internal Medicine | DX: G47.33 Obstructive sleep apnea (adult) (pediatric) (principal); C61 Malignant neoplasm of prostate; Z19.1 Hormone sensitive malignancy status; Z99.89 Dependence on other enabling machines and devices; Z87.891 Personal history of nicotine dependence | CPT/HCPCS: 99212 ==

== ENCOUNTER 2025-06-14 13:05 | Outpatient (AMB) | payer MEDICARE, SELFPAY ==
--- NOTE | 2025-06-14 13:26 | A.OFFVIS_ITS ---
Intake Visit Reasons: Prostate biopsy results SET Intake Note: Patient is present for Prostate Bx results Urology Medication:TAMSULOSIN,FINASTERIDE Antibiotic Allergy:NONE Blood Thinner:NONE Labs done 05/11/25: PSA total 8.48 Assembler Radio And Electrical Required: No Accompanied by: Self / Same As Patient Allergies No Known Allergies (No Known Allergies*) Allergy (Verified 06/14/25 13:27) HPI Comments Details: Olvin is a very pleasant male. He is a patient of Dr. Ray. He is seen for the following urologic conditions - elevated PSA - lower urinary tract symptoms - prostate cancer Follow-up from prostate biopsy Prostate cancer Discussed biopsy results Needs prostate MRI and follow-up discussion Prostate cancer - grade group 2, organ confined, multi core TRUS volume 35 cc PSA 9.0 T1c Biopsy 07/05 Histologic type: Prostatic adenocarcinoma, acinar type Histologic grade: Zev score: 7 (3+4) (right apex lateral) 6 (3+3) (left apex medial, right mid lateral and medial, and right apex medial) Prostate cancer % of pattern 4: 3% Grade group: 2 and 1 Tumor quantitation: Number cores positive: 5 Total number of cores: 17 % of tissue involved: 13% Periprostatic fat inv.: Not identified Seminal vesicle inv.: Not identified Perineural inv.: Present Lymphatic and/or vascular invasion: N PFSH Medical History Left inguinal hernia (03/26/23) History of urinary frequency Screening for diabetes mellitus Hyperlipidemia RIZWAN on CPAP IBS (irritable bowel syndrome) Dyslipidemia Surgical History History of colonoscopy Family History Father Mental health disorder Mother No problems noted. Social History Housing: House Alcohol intake: current Patient Tobacco Use Status: Former Tobacco user Tobacco use type: Cigarette Years Smoked: 2 years. Over 60 years ago. e-Cigarette/Vaping Use: Never Used Second Hand Smoke Exposure: No service: No Current occupational status: retired Cognitive needs: No Hearing needs: No Vision needs: No Review of Systems Const Denies chills and Denies fever(s) Card Reports no additional complaints and Denies syncope Resp Denies cough GI Denies abdominal pain and Denies heartburn Reports as per HPI and Denies change in libido Neuro Denies syncope Psych Denies change in libido Endo Denies change in libido Physical Exam Const General: cooperative, healthy appearing, comfortable and no acute distress Orientation/consciousness: patient oriented x3 HEENT Face and sinus: Yes normal facial exam Mouth: moist mucous membranes Neck Neck: Yes normal visual inspection, Yes full ROM and Yes trachea midline Chest Chest palpation & inspection: normal inspection of the chest Resp Effort & Inspection: normal respiratory effort, able to speak in complete sentences and no respiratory distress GI Inspection: Yes normal to inspection Back/Spine/Pelvis Cervical Spine: normal cervical lordosis Thoracic/Lumbar Spine: thoracic and lumbar spine normal to inspection Skin General skin exam: no rashes or lesions noted Neuro General: patient oriented x3, gait normal, tone normal and moves all extremities Extrem General: Yes normal to inspection and Yes capillary refill normal Assessment & Plan Assessment & Plan (1) Hormone sensitive prostate cancer: Code(s): C61 - Malignant neoplasm of prostate; Z19.1 - Hormone sensitive malignancy status Category: Medical Plan Prostate MRI Prolaris Six week follow-up Orders: Orders MR Prostate wo/w con 4 Weeks C61 - Malignant neoplasm of prostate, Z19.1 - Hormone sensitive malignancy status Patient Instructions: This note is constructed using voice recognition software. While every effort has been made to ensure accuracy soldering inspector errors may have been included. Imaging studies, laboratory and physical exam results were discussed and reviewed in detail. No major barriers to patient understanding were identified. An opportunity to ask questions regarding the treatment plan was provided. All questions were answered. The patient expressed understanding and agreement with the above treatment plan. The patient is aware they should contact our office by phone for worsening of their current condition or the appearance of new urologic symptoms. Compliance is encouraged with any medications and followup testing that is ordered. It is a privilege to participate in the urologic care of your patient. If you have any questions or concerns regarding treatment for the above conditions, or other urologic issues, please do not hesitate to contact me. The office telephone contact is [phone]. Sincerely, Dr Domo Perkins MD, [facility] - Urology Compassionate Specialist Care for the Genitourinary System Coding Level of Care Code Est Pt Level 4 (46406) Complex visit Add On G2211 Diagnoses Hormone sensitive prostate cancer C61; Z19.1
== END 2025-06-14 14:09 | disposition home or self-care (01) ==
LOC: HO.HUSH 13:06
PROVIDERS: Visit Provider Urology
DX: C61 Malignant neoplasm of prostate (principal); Z19.1 Hormone sensitive malignancy status
CPT/HCPCS: 99214; G2211

== ENCOUNTER 2025-07-11 08:55 | Outpatient (REF) | payer MEDICARE, SELFPAY ==
--- NOTE | ~2025-07-11 | MR_ITS ---
EXAMINATION: MR PROSTATE WITHOUT THEN WITH IV CONTRAST, MR EXAM UNLISTED HISTORY: C61 - Malignant neoplasm of prostate TECHNIQUE: 1.5T body coil survey of the pelvis was performed. Phase array coil imaging of the prostate was performed in multiplanar high resolution axial, coronal, sagittal fast spin echo T2 and axial T1 weighted imaging sequences. Axial diffusion imaging at intermediate and high field performed with ADC mapping. Next, 7.5 mL Gadavist was given by intravenous infusion, and dynamic axial imaging performed. 3-D reconstructions and post-processing were performed on an independent workstation by the radiologist for biopsy planning using image fusion. COMPARISON: There are no prior studies available for comparison. CLINICAL DATA: Most recent PSA: 8.48 ng/mL on 05/11/2025. PSA Density: 0.28 ng/mL squared Prostate Biopsy: Positive biopsy on 05/29/2025 with a Zev score of 3+3 = 6. FINDINGS: Prostate size: The 3.9 x 4.4 x 3.4 cm. Calculated prostate volume is 30.3 mL. Hemorrhage: None. Transitional Zone: There is mild heterogeneous nodular hypertrophy of the transitional zone. Peripheral Zone: There are areas of interest in the peripheral zone as described below: Area of interest #1: Location: Left anterior peripheral zone in the mid gland measuring 13 x 5 mm (series 8, images 16-18). DWI PI-RADS v2.1 score: 4 T2 PI-RADS v2.1 score: 4 DCE PI-RADS v2.1 score: + Overall PI-RADS v2.1 score: 4 Capsular contact: yes Extracapsular extension: None Seminal vesicle invasion: None Neurovascular bundle involvement: None Area of interest #2: Location: Right posterolateral peripheral zone in the mid gland measuring 7 mm (series 8, images 16-17) DWI PI-RADS v2.1 score: 4 T2 PI-RADS v2.1 score: 4 DCE PI-RADS v2.1 score: + Overall PI-RADS v2.1 score: 4 Capsular contact: yes Extracapsular extension: None Seminal vesicle invasion: None Neurovascular bundle involvement: None Seminal Vesicles/Ejaculatory Ducts: Symmetric and normal in signal and caliber. Pelvic Lymph Nodes: No obturator or internal iliac lymph nodes meeting size criteria for adenopathy. Marrow Signal: Normal marrow signal and enhancement without focal lesion identified. MR/MR Prostate wo/w con IMPRESSION: Areas of interest in the left anterior peripheral zone in the mid gland, and the right posterolateral peripheral zone in the mid gland as described above, suspicious for clinically significant prostate carcinoma. PI-RADS 4: High (clinically significant cancer is likely to be present) PI-RADS Assessment Categories PI-RADS 1: Very low (clinically significant cancer is highly unlikely to be present) PI-RADS 2: Low (clinically significant cancer is unlikely to be present) PI-RADS 3: Intermediate (the presence of clinically significant cancer is equivocal) PI-RADS 4: High (clinically significant cancer is likely to be present) PI-RADS 5: Very high (clinically significant cancer is highly likely to be present) [employer]. MR Prostate Imaging Reporting and Data System version 2.1. [email or web address] Electronically signed by: Geronimo Whitt MD 07/11/2025 10:53 AM [facility]
--- OUTSIDE RECORDS SUMMARY | 2025-07-11 09:08 | XMS_ITS | Clinical Summary ---
Author Organization [employer] Address [address] [place] [address] [address] [place] [address] Care Team Providers Care Service Coordinator Elderly Facility Name Role Phone Unavailable Primary Care Provider Unavailabl e Encounters Date Type Department Care Team Description 04/19/2025 11:05 AM EDT Immunization [facility] [address] [place] [address] Philomena Navarro RN Encounter for immunization from [...] age to complete this topic Insurance MEDICARE [facility] MEDEX MEDICARE SUPPLEMENT
--- OUTSIDE RECORDS SUMMARY | 2025-07-11 09:08 | XMS_ITS | Patient Health Record ---
Author Organization [facility] Address [address] [place] [address] Care Team Providers Care Associate Professor Of Media Arts Name Role Phone Clifford Ortega MD Primary Care Provider Unavaila Geronimo Jaeger Unavailable [phone] Reason For Referral No Information Medications Medication [...] Risk Notes Problem Change in bowel habit (48859052) Change in bowel habits (R19.4) Active confirmed Problem Altered bowel function (01030404) Change in bowel function (R19.4) Active confirmed Problem Irritable bowel syndrome (77465944) Irritable bowel syndrome with both constipation and diarrhea (K58.2) Active confirmed Problem Essential hypertension (53614627) Hypertension, unspecified type (I10) Active confirmed Plan Of Treatment Future Test Test Name Order Date COLONOSCOPY 03/09/2019 Insurance Providers Payer Name Payer Address Payer Phone Subscriber Number Group Number Insured Name Patient Relationship to Insured Coverage Start Date Coverage End Date MEDICARE OF [place] [address] [place] [id number] [phone] [id number] DENISHA BRIGGS Self - patient is the insured MEDEX ATTN CLAIMS [address] [place] [address] [phone] [id number] DENISHA BRIGGS Self - patient is the insured Medical (General) History Medical History History ICD Code Denies [place],DM,CVA,Lung disease,renal dise ase Neg. colonoscopy in [address] Escudero and neg limited colonoscopy/CT colonography with Dr. 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 celiac di sease labs in 2019 Surgical History Surgery Date(Month/Year)
--- OUTSIDE RECORDS SUMMARY | 2025-07-11 09:08 | XMS_ITS | Patient Health Record ---
Author [facility] Address [address] [place] [address] Care Team Providers Care Fast Food Manager Name Role Phone Jordan ANGLIN, Clifford Primary Care Provider Akira Land Unavailable [phone] Allergies No Known Allergies Reason For Referral [...] Problem Acquired hammer toe of right foot ([id number] 105) Other hammer toe(s) (acquired), right foot (M20.41) Active confirmed Problem Acquired hammer toe of left foot (3377840041425 103) Other hammer toe(s) (acquired), left foot (M20.42) Active confirmed Plan Of Treatment Pending Test Test Name Order Date 03341-[id number] OF HEMATOMA/FLUID 022 Insurance Providers Payer Name Payer Address Payer Phone Subscriber Number Group Number Insured Name Patient Relationship to Insured Coverage Start Date Coverage End Date Medicare National Govt Svcs Inc [address] [place] [address] [id number] Olvin Ocasio Self - patient is the insured [employer] Blue Shield [address] [place] [address] [phone] [id number] Olvin Ocasio Self - patient is the insured Medical (General) History Medical History History ICD Code CAD (Cholesterol) High blood pressure Measles Mumps Chicken pox Surgical History Surgery Date(Month/Year) Hernia Repair 10/2022
== END 2025-07-11 08:56 | disposition home or self-care (01) ==
LOC: HO.MRI 08:55
PROVIDERS: Visit Provider Urology
DX: C61 Malignant neoplasm of prostate (principal); Z19.1 Hormone sensitive malignancy status; R97.20 Elevated prostate specific antigen [PSA]
CPT/HCPCS: 72197; 76377; A9585

== ENCOUNTER → 2025-07-11 09:07 | Outpatient (BNV) | payer MEDICARE, SELFPAY | PROVIDERS: Visit Provider Radiology Diagnostic Radiology | DX: C61 Malignant neoplasm of prostate (principal) | CPT/HCPCS: 72197; 76377 ==